=== PATIENT | male | born 1980 | race Caucasian/White ===

== ENCOUNTER 2018-12-05 14:22 | Outpatient (REF) | payer BC, SELFPAY ==
[2018-12-05 18:44] LABS: HCT 41.9 % (40.0-50.0); HGB 13.9 g/dL (13.5-17.5); Mean Corp. HGB Concentration 33.2 g/dL (32.0-36.0); Mean Corpuscular Hemoglobin 30.3 pg (27.0-33.0); Mean Corpuscular Volume 91.3 fL (80-95); Platelet Count 319 x1000/uL (130-400); RBC 4.59 m/cumm (4.50-6.00); RBC Distribution Width 12.7 % (11.8-14.1); White Blood Cell Count 6.52 k/cumm (4.4-10.8)
[2018-12-05 18:59] LABS: ALT 85 U/L (16-63); AST 40 U/L (15-37); Alkaline Phosphatase 81 U/L (46-116); Anion Gap 12.8 mmol/L (3-11); BUN 20 mg/dL (7-18); Bilirubin, Total 0.3 mg/dL (0.2-1.0); CO2 25.2 mmol/L (21.0-32.0); CREATININE 1.07 mg/dL (0.70-1.30); Calcium 9.2 mg/dL (8.5-10.1); Calculated LDL 152 mg/dL; Chloride 103 mmol/L (98-107); Cholesterol 245 mg/dL (50-200); Glucose 158 mg/dL (70-100); HDL Cholesterol 35 mg/dL (40-60); Sodium 141 mmol/L (136-145); TSH (W/Ref FT4) 1.62 uIU/mL (0.36-3.74); Total Protein 7.7 g/dL (6.4-8.2); Triglyceride 291 mg/dL (30-150)
[2018-12-07 10:28] LABS: Hepatitis B Surface Ag Negative (NEGAT)
[2018-12-07 10:40] LABS: HIV-1/2 Ag & Ab Screen Negative (NEGAT); Hepatitis C Ab w Rflx HCV PCR Negative (NEGAT)
[2018-12-07 11:14] LABS: Syphilis Serology (RPR) Negative (Negative)
[2018-12-07 11:32] LABS: HBs Antibody, Quant 16.1 mIU/mL; Hepatitis B Surface Ab Positive
[2018-12-07 14:48] LABS: Chlamydia Result Negative; GC Result Negative; Specimen Description URINE
== END 2018-12-05 14:42 ==
LOC: NCHCN 14:22
PROVIDERS: PCP General Practice; Visit Provider Nurse Practitioner Family
DX: R53.83 Other fatigue (principal); Z20.2 Contact with and (suspected) exposure to infections with a predominantly sexual mode of transmission; Z00.00 Encounter for general adult medical examination without abnormal findings; Z11.59 Encounter for screening for other viral diseases; Z11.4 Encounter for screening for human immunodeficiency virus [HIV]; Z11.3 Encounter for screening for infections with a predominantly sexual mode of transmission; Z13.220 Encounter for screening for lipoid disorders
CPT/HCPCS: 80053; 80061; 85027; 86706; 86803; 87340; 87389; 87491; 87591; 84443; 86592

== ENCOUNTER 2018-12-15 22:11 | Emergency (ER) | payer BC, SELFPAY ==
[2018-12-15 22:14] VITALS: BP 149/91; PULSE 110; RESP 16; TEMP 36.9; O2SAT 96
--- NOTE | 2018-12-15 22:17 | ED.GENADUL_ITS ---
Discharge Plan Disposition Patient Disposition: HOME Condition: Good Discharge Details Chief Complaint: EyeProblem Clinical Impression: Foreign body of left eye Primary Care Provider: Chad Sanders ED Provider: Earle Sevilla Home Meds and New Rx's Prescriptions: Continued ibuprofen 200 MG tablet 1 - 2 tab PO PRN PRNRF: 0 Discharge Instructions Additional Instructions: You could try some [id number] Visine for eye comfort tonight. There is no corneal abrasions or foreign body appreciated at this time. If you have increased eye pain, change in vision, eye discharge return to ED. Referrals: [facility] [Provider Group] Medical Decision Making 2 drops of tetracaine placed in left eye. No obvious foreign body visualized. Upper eyelid inverted and swept with Q-tip swab. Fluorescein staining placed in left eye. Wood's lamp reveals no corneal uptake. Will flush with a liter of LR using Dereje lens and evaluate with slit lamp. Patient reports that eye feels much better after irrigation. Slit-lamp exam reveals no foreign body that I can see, no corneal abnormality. Just a lot of conjunctival injection. Patient will be discharged at this time. May try ebnn-gqi-zffzdbw eyedrops for comfort overnight. Return to ED if increasing eye pain, vision change, eye discharge. HPI General Mode of arrival: ambulatory . Date/Time Provider Initiated Documentation: 12/15/18 22:17 . Limitations to Documentation: no limitations . Information obtained by: patient . HPI Narrative: Patient presents to ED with complaint of left eye pain/irritation. 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 Just as he was starting to climb out something fell into his left eye. He has tried irrigation but continues to feel like there is something there. It is very red and irritated and he needs to keep his eye closed. There is no visual disturbance. He presents now for evaluation. Related Data Home Medications Medication Instructions Recorded Confirmed ibuprofen 1 - 2 tab PO PRN PRN 05/14/13 12/15/18 Allergies Allergy/AdvReac Type Severity Reaction Status Date / Time codeine Allergy Unknown Unverified 12/15/18 22:17 bananas Allergy Intermediate Swelling/Ed Uncoded 12/15/18 22:17 filiberto General Stated Complaint: EyeProblem MUNA: 4 Review of Systems Constitutional Constitutional: Denies fever(s) Eyes Eyes: Denies change in vision, Reports irritation and Reports eye pain PFS Social History Smoking/Tobacco Use Status: Never Drug use: Occasionally Substance use type: marijuana Do you feel safe at home: Yes Do you feel safe in your relationship?: Yes Exam Const General: cooperative Orientation: alert and oriented x3 HENMT Head: normocephalic and atraumatic Face and sinus: normal facial exam Eyes Periorbital: periorbital findings normal Eyelids: eyelids normal Conjunctivae: conjunctival abnormality bilaterally conjunctival injection (left greater than right) diffuse Sclera: sclerae normal Cornea: corneas normal and fluorescein used Pupils: PERRL EOM: EOM intact bilaterally Other: 20/20 left eye Course Vital Signs Vital signs: Vital Signs Temperature 98.4 F 12/15/18 22:14 Pulse 110 H 12/15/18 22:14 Respiratory Rate 16 12/15/18 22:14 Blood Pressure 149/91 H 12/15/18 22:14 Pulse Oximetry 96 12/15/18 22:14 Temperature 98.4 F 12/15/18 22:14 Temperature Source Skin 12/15/18 22:14 Pulse 110 H 12/15/18 22:14 Respiratory Rate 16 12/15/18 22:14 Respiratory Effort Non-Labored 12/15/18 22:16 Blood Pressure 149/91 H 12/15/18 22:14 Blood Pressure Position Sitting 12/15/18 22:14 Pulse Oximetry 96 12/15/18 22:14 Oxygen Delivery Method Room Air 12/15/18 22:14 Oxygen Flow Rate 0 12/15/18 22:14
[2018-12-15 23:01] VITALS: BP 149/91; PULSE 110; RESP 16; TEMP 36.9; O2SAT 96
== END 2018-12-15 23:00 | disposition home or self-care (01) ==
PROVIDERS: Emergency Provider Emergency Medicine; PCP Nurse Practitioner Family
DX: T15.92XA Foreign body on external eye, part unspecified, left eye, initial encounter (principal)
CPT/HCPCS: 99283

== ENCOUNTER 2019-03-21 00:08 | Outpatient (CLI) | payer BC, SELFPAY ==
--- NOTE | 2019-03-21 08:14 | ETT_ITS ---
APPROVED REPORT Exam: Exercise Treadmill Patient Location: Out-Patient Room/Bed: Stress Nurse: Sinai Dolan RN BMI: 46.98 Baseline Rhythm: Sinus Indications: Exertional chest pain. Medical History Medical History: Sleep Apnea Allergies: Codeine Cardiac Risk Factors: Smoking, cannabis. Obesity. Sleep apnea. Pretest Chest Pain Characteristics: Exertional Chest pain Exercise History: Indeterminate Lung Sounds: Clear to auscultation Heart Sounds: Regular Stress Test Details Rest Stress HR Max Heart Rate (APMHR): 184 bpm Resting HR Supine: 77 bpm Target HR (85% APMHR): 156 bpm Resting HR Standin bpm Max HR Achieved: 179 bpm % of APMHR: 97 HR response to stress: Normal HR response to stress BP Resting BP Supine: 142/102 mmHg Resting BP Standin/100 mmHg Max BP: 216/100 mmHg Recovery BP: 160/100 mmHg BP response to stress: Abnormal hypertensive response to stress. ECG Resting ECG: Sinus rhythm Stress ECG: Sinus Tachycardia ST Change: No significant ST segment changes Arrhythmia: none Recovery ECG: Sinus tachycardia Recovery Arrhythmia: none Clinical Time of Stop for Rene: 0800 Reason for Termination: Fatigue Stress Symptoms: General Fatigue Exercise duration: 08 min0 sec Highest Stage Achieved: Stage 3: 3.4 mph at 14% grade. Exercise capacity: 10.15 METs Functional Capacity: Mildly diminished capacity Stress ECG Conclusion 1. The patient exercised for 8 minutes (10 METS). 2. Exercise was terminated due to fatigue. 3. The heart rate blood pressure product was 32,000. 4. The patient had a hypertensive response to exercise. 5. There was no evidence of ischemia on the ECG portion of this exam. 6. The Dial Score ( 8) estimates an annual cardiovascular mortality of 0% and a five year survival of 95%. Using the Dial Score there is a low probability of any angiographic coronary disease. Protocol Used: Rene Protocol Stress Test Summary STAGE Time (mins) Speed (mph) Grade (%) HR BP SYMPTOMS METS Supine 77 142/102 Standing 87 140/104 1 3 1.7 10 138 168/110 4.6 2 6 2.5 12 162 180/110 7 3 9 3.4 14 171 10.2 12.9 17.2 1 min recovery 156 216/100 3 min recovery 120 208/100 9 min recovery 113 180/100 15 min recovery 115 160/100
== END 2019-03-21 00:28 ==
PROVIDERS: PCP Nurse Practitioner Family; Visit Provider Nurse Practitioner Family
DX: R07.89 Other chest pain (principal); F17.220 Nicotine dependence, chewing tobacco, uncomplicated; G47.30 Sleep apnea, unspecified; R53.83 Other fatigue; E66.9 Obesity, unspecified
CPT/HCPCS: 93017

== ENCOUNTER 2019-10-27 14:54 | Outpatient (REF) | payer BC, SELFPAY ==
[2019-10-29 19:02] LABS: SARS-CoV-2 RNA Undetected (Undetected); SARS-CoV-2 Specimen Source Nasopharynx
== END 2019-10-27 15:14 ==
LOC: NCHCN 14:54
PROVIDERS: PCP Nurse Practitioner Family; Visit Provider Nurse Practitioner Family
DX: R09.81 Nasal congestion (principal)
CPT/HCPCS: U0003

== ENCOUNTER 2020-02-01 15:23 | Outpatient (REF) | payer BC, SELFPAY ==
[2020-02-06 15:09] LABS: Patient Race White; SARS-CoV-2 Specimen Source Nasal
[2020-02-06 15:44] LABS: SARS-CoV-2 RNA Detected (Undetected)
== END 2020-02-01 15:43 ==
LOC: NCHCN 15:23
PROVIDERS: PCP Nurse Practitioner Family; Visit Provider Nurse Practitioner Family
DX: Z20.828 Contact with and (suspected) exposure to other viral communicable diseases (principal)
CPT/HCPCS: U0003

== ENCOUNTER 2020-05-26 08:02 | Emergency (ER) | payer BC, SELFPAY ==
[2020-05-26 08:12] VITALS: BP 133/86; PULSE 93; RESP 22; TEMP 36.3; O2SAT 97
--- NOTE | 2020-05-26 08:15 | RT.EKG_ITS ---
APPROVED REPORT Exam: Resting ECG Patient Location: E HR:76 bpm ECG Measurements Heart Rate 76 AXIS IA 175 P 25 QRSd 89 QRS 67 QT 356 T 43 QTc 401 Conclusion Sinus rhythm...normal P axis, V-rate 60- 99 Nonspecific T abnrm, anterolateral leads...T <-0.10mV, I aVL V2-V6
--- NOTE | 2020-05-26 08:45 | DI.RAD_ITS ---
EXAM: XR PORTABLE CHEST AP CLINICAL HISTORY: sob TECHNIQUE: 2D digital imaging was performed. COMPARISON: No exams were available for comparison FINDINGS: MEDIASTINUM: Normal. HEART: Normal. PULMONARY VASCULATURE: Normal. LUNGS: Clear. PLEURAL SPACE: No pleural effusion or pneumothorax. BONE:Within normal limits for the patient's age. OTHER FINDINGS:Normal. IMPRESSION: No acute pulmonary findings. DATA REPOSITORY: RADIATION DOSE DELIVERED:
--- NOTE | 2020-05-26 09:18 | ED.GENADUL_ITS ---
Discharge Plan Disposition Patient Disposition: HOME Condition: Stable Discharge Details Clinical Impression: Pulmonary embolism Primary Care Provider: Joaquín Herring ED Provider: Dilan Raza Home Meds and New Rx's Prescriptions: New Xarelto DVT-PE Treat 30d Start 15 mg (42)- 20 mg (9) tablets,dose pack See Rx Instructions .ROUTE .COMPLEX Qty: 51 RF: 0 Continued armodafinil 150 mg tablet 150 mg PO DAILY RF: 0 Discontinued ibuprofen 200 MG tablet 1 - 2 tab PO PRN PRNRF: 0 Discharge Instructions Instructions: Pulmonary Embolism (ED) Additional Instructions: Evaluation in the ER reveals a pulmonary embolism. After shared decision making we decided to initiate Xarelto therapy. You declined the 1st dose here in the ER but have assured me you will go directly to the pharmacy. Please take Xarelto as directed. Please watch for new or worsening symptoms and return to the ER for any concerns. As we discussed, Xarelto will increase your chance for bleeding so evaluation for mild trauma that you may have not previously obtained is now likely indicated. Please contact your primary care provider tomorrow, I have placed you on their list to help expedite outpatient care in the next few days. Medical Decision Making This is a 39-year-old gentleman, denies significant past medical history presenting to the ER today with 1 week history of what he describes as a dry cough and shortness of breath progressively worse. Clinically he appears well, nontoxic. He is able to speak in full sentences, heart rate in the 90s, he is afebrile, O2 sats 97% on room air. He does have a few scattered wheezes pr imarily clear with coughing. He is morbidly obese, questions if he has a clotting factor disorder in his family but cannot give additional details. We discussed options, will obtain IV access, CBC, CMP, a simple troponin and EKG. Will obtain a chest x-ray and D-dimer. We will also obtain Covid swab. Differential includes but not excluded to atypical ACS, pneumonia, PE, bronchitis, anxiety, low suspicion for CHF given his presentation. We will give a single DuoNeb to see if there is any improvement of his symptoms. DuoNeb given, no real change upon reevaluation Laboratory values reveal a D-dimer of 903, otherwise unremarkable for obvious emergent process. Covid test pending. Chest x-ray has already been obtained, negative per radiology. Given his shortness of breath and elevated D-dimer will obtain CTA of his chest. CTA read by radiology as right anterior truncus PE without convincing evidence of right heart strain. Patient remains hemodynamically stable. Using the pulmonary embolism severity index, patient is a class I very low risk 0-1.6% 30-day mortality. I did discuss the CT findings and work-up with patient. We discussed inpatient versus outpatient management, he is comfortable with outpatient management and given his age, lack of other, disease, I feel this to be perfectly reasonable. Using shared decision making, discussing pros and cons of anticoagulation therapy, patient would like to move forward with Xarelto. He declines my recommended 1st dose here in the ER, citing financial issues, and would prefer to take this dose as soon as he leaves the ER and fill his prescription at the pharmacy. Patient was placed on the care management list to help expedite outpatient care through his primary care provider. Patient plans to contact his primary care provider tomorrow to discuss outpatient evaluation. Patient was given strict return precautions and encouraged to return to the ER for new, worsening, or evolving symptoms. Upon discharge patient appears well, nontoxic and is hemodynamically stable. He has no additional questions or concerns and is comfortable with this plan. Medical Records Medical records reviewed: Yes I reviewed the patient's medical records. Imaging Data Radiologic Study: Attestation: I personally reviewed and interpreted this imaging study as follows: Imaging: X-Ray Radiologist's impression: CTA chest small burden pulmonary embolism right anterior truncus without convincing evidence of right heart strain at this time. Lab Data Lab results reviewed: Yes I reviewed the patient's lab results. Lab results narrative: Laboratory Tests Range/Units 05/26/20 05/26/20 05/26/20 09:15 09:15 09:15 WBC (4.4-10.8) 10^3/uL 8.54 RBC (4.36-5.78) 10^6/uL 4.54 Hgb (13.5-17.5) g/dL 13.9 Hct (40.0-50.0) % 41.5 MCV (80-95) fL 91.4 MCH (27.0-33.0) pg 30.6 MCHC (32.0-36.0) % 33.5 RDW (11.8-14.1) % 12.5 Plt Count (130-400) 10^3/uL 286 MPV (8.0-11.0) fL 9.2 Immature Gran % 0.2 Neutrophils % 53.2 Lymphocytes % 25.2 Monocytes % 7.6 Eosinophils % 11.7 Basophils % 2.1 Nucleated RBC % % 0 Absolute Neutrophils (1.2-6.7) 10^3/uL 4.54 Absolute Lymphocytes (1.2-3.4) 10^3/uL 2.15 Absolute Monocytes (0.1-0.8) 10^3/uL 0.65 Absolute Eosinophils (0.0-0.7) 10^3/uL 1.00 H Absolute Basophils (0.0-0.2) 10^3/uL 0.18 D-Dimer (<500) ng/mlFEU 903 H Sodium (136-145) mmol/L 139 Potassium (3.5-5.1) mmol/L 4.3 Chloride (98-107) mmol/L 104 Carbon Dioxide (21.0-32.0) mmol/L 27.0 Anion Gap (3-11) mmol/L 8.0 BUN (7-18) mg/dL 13 Creatinine (0.70-1.30) mg/dL 1.0 Estimated GFR/1.73 m2 (mL/min/1.73m2) >= 60.00 Glucose (74-106) mg/dL 123 H Calcium (8.5-10.1) mg/dL 9.1 Total Bilirubin (0.2-1.0) mg/dL 0.3 AST (15-37) U/L 16 ALT (16-63) U/L 52 Alkaline Phosphatase (46-116) U/L 91 Troponin I (<0.06) ng/mL < 0.05 Total Protein (6.4-8.2) g/dL 7.8 Albumin (3.4-5.0) g/dL 3.7 ECG Data Attestation: I personally reviewed and interpreted this ECG (s) as follows: Interpretation: Please see official report by Dr. Jean. Sinus rhythm, ventricular of 76. Nonspecific T wave abnormalities in the anterior lateral leads, no STEMI HPI General Mode of arrival: ambulatory . Date/Time Provider Initiated Documentation: 05/26/20 08:21 . Limitations to Documentation: no limitations . Information obtained by: patient . HPI Narrative: This is a 39-year-old male, past medical history that includes sleep apnea, current daily marijuana smoker, presented to the ER today with 1 week history of shortness of breath. He denies recent illness or travel. He reports having flulike symptoms and Covid positive back in January, this feels differently. He was never short of breath with Covid. 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 He feels like this makes his symptoms worse. He denies any headache, fevers, neck pain, chest pain, back pain,, pain, nausea, vomiting, numbness, tingling, weakness, pain or swelling in his legs. He is not sure but believes that a clotting disorder runs in his family. He denies history of DVT or PE. Patient reports that he has felt wheezy, using a friend's albuterol rescue inhaler more than directed. He reports his cough is mostly dry. He has not tried any other [id number] medications for symptomatic control. Related Data Home Medications Medication Instructions Recorded Confirmed armodafinil 150 mg PO DAILY 05/26/20 05/26/20 rivaroxaban [Xarelto DVT-PE Treat See Rx Instructions .ROUTE 05/26/20 30d Start] .COMPLEX #51 dose pk Previous Rx's Medication Instructions Recorded rivaroxaban [Xarelto DVT-PE Treat See Rx Instructions .ROUTE 05/26/20 30d Start] .COMPLEX #51 dose pk Allergies Allergy/AdvReac Type Severity Reaction Status Date / Time codeine Allergy Unknown Unverified 05/26/20 08:16 bananas Allergy Intermediate Swelling/Ed Uncoded 05/26/20 08:16 filiberto General Stated Complaint: SOB MUNA: 3 Review of Systems Constitutional Constitutional: Denies fatigue, Denies fever(s) and Denies headache(s) Eyes Eyes: Denies eye discharge ENT Ears, Nose, Mouth, and Throat: Denies headache(s) and Denies neck pain Cardiovascular Cardiovascular: Denies chest pain and Reports dyspnea Respiratory Respiratory: Reports cough, Reports dyspnea and Reports wheezing Gastrointestinal Gastrointestinal: Denies abdominal pain, Denies nausea and Denies vomiting Musculoskeletal Musculoskeletal: Denies back pain and Denies neck pain Integumentary/Breasts Skin/Breast: Denies rash Neurologic Neurologic: Denies headache(s) Endocrine Endocrine: Denies fatigue Allergic/Immunologic Allergic/Immunologic: Reports wheezing [facility] Social History Smoking/Tobacco Use Status: Never Smoking risk assessment performed?: Yes Drug use: Daily Substance use type: marijuana Do you feel safe at home: Yes Do you feel safe in your relationship?: Yes Exam Const General: cooperative, healthy appearing, comfortable and no acute distress Orientation: alert, awake and oriented x3 HENMT Head: normal to inspection, normocephalic and atraumatic Face and sinus: normal facial exam Mouth: moist mucous membranes Throat: posterior oropharynx normal Eyes General: appearance normal, both eyes and all related structures Conjunctivae: conjunctivae normal Sclera: sclerae normal Neck Neck: normal visual inspection, full ROM, trachea midline and supple Resp Effort & Inspection: normal respiratory effort and able to speak in complete sentences Auscultation: diminished lung sounds bilaterally (Minimally) and wheezes (Scattered, rare, diffuse. Mostly clear with coughing) Cardio Rate: regular rate Rhythm: regular rhythm GI Inspection: obesity Palpation: soft and nontender Back/Spine/Pelvis Back: No back tenderness Skin General skin exam: no rashes or lesions noted Neuro General: patient alert, patient awake, moves all extremities and no focal motor deficits Cognition: normal cognition Speech: speech normal Gait: normal gait Motor: muscle tone normal throughout Sensory Exam: no sensory deficits noted Extrem General: normal to inspection, full ROM, capillary refill normal, no pedal edema and no calf tenderness Psych Appearance: grossly normal Mental Status: mental status grossly normal Course Vital Signs Vital signs: Vital Signs Temperature 36.3 C L 05/26/20 08:12 Pulse 93 H 05/26/20 08:12 Respiratory Rate 22 05/26/20 08:12 Blood Pressure 133/86 05/26/20 08:12 Pulse Oximetry 97 05/26/20 08:12 Temperature 36.3 C L 05/26/20 08:12 Temperature Source Skin 05/26/20 08:12 Pulse 93 H 05/26/20 08:12 Respiratory Rate 22 05/26/20 08:12 Respiratory Effort 05/26/20 08:57 Respiratory Depth Normal 05/26/20 08:57 Respiratory Pattern Normal 05/26/20 08:57 Blood Pressure 133/86 05/26/20 08:12 Blood Pressure Position Sitting 05/26/20 08:12 Pulse Oximetry 97 05/26/20 08:12 Oxygen Delivery Method Room Air 05/26/20 08:12 Oxygen Flow Rate 0 05/26/20 08:12 Pain Level 2 05/26/20 08:12 Critical Care Time Critical Care Time Critical Care Time: Yes Total Critical Care Time: 35 Attestation: Upon my evaluation, this patient had a high probability of clinically significant, life-threatening deterioration due to their current medical conditions, which required my direct attention, intervention, and personal management. I have personally provided greater than 30 minutes of critical care time exclusive of the time spend on separately billable procedures. Time includes obtaining a history, examining the patient, pulse oximetry, review of laboratory data, radiology results, discussion with consulta nts, arranging urgent treatment with development of a management plan, evaluation of patient's response to treatment, and monitoring for potential decompensation. Interventions were performed as documented above.
[2020-05-26 09:23] LABS: Abs Immature Grans 0.02 10^3/uL (0.0-0.06); Absolute Basophil Count 0.18 10^3/uL (0.0-0.2); Absolute Lymphocyte Count 2.15 10^3/uL (1.2-3.4); Absolute Monocyte Count 0.65 10^3/uL (0.1-0.8); Absolute Neutrophil Count 4.54 10^3/uL (1.2-6.7); Basophils % 2.1; Eosinophils % 11.7; HCT 41.5 % (40.0-50.0); HGB 13.9 g/dL (13.5-17.5); Immature Grans % 0.2; Lymphocytes % 25.2; MCH 30.6 pg (27.0-33.0); MCHC 33.5 % (32.0-36.0); MCV 91.4 fL (80-95); MPV 9.2 fL (8.0-11.0); Monocytes % 7.6; Neutrophils % 53.2; Nucleated RBC 0 %; Platelet Count 286 10^3/uL (130-400); RBC 4.54 10^6/uL (4.36-5.78); RDW 12.5 % (11.8-14.1); RDW-SD 41.7 fL; WBC 8.54 10^3/uL (4.4-10.8)
[2020-05-26 09:38] LABS: ALT 52 U/L (16-63); AST 16 U/L (15-37); Albumin 3.7 g/dL (3.4-5.0); Alkaline Phosphatase 91 U/L (46-116); BUN 13 mg/dL (7-18); Bilirubin, Total 0.3 mg/dL (0.2-1.0); Calcium 9.1 mg/dL (8.5-10.1); Chloride 104 mmol/L (98-107); Glucose 123 mg/dL (74-106); Potassium 4.3 mmol/L (3.5-5.1); Sodium 139 mmol/L (136-145); Total Protein 7.8 g/dL (6.4-8.2)
[2020-05-26 09:39] LABS: Troponin I < 0.05 ng/mL (<0.06)
[2020-05-26 09:55] LABS: D-Dimer 903 ng/mlFEU (<500)
--- NOTE | 2020-05-26 10:00 | DI.CT_ITS ---
EXAM: CT CHEST PE CTA CLINICAL HISTORY: sob, elevated dimer. TECHNIQUE: Imaging Protocol: Axial CT angiography was performed with multi-slice acquisition and mu lti-planar and/or 3D reconstructions. CONTRAST MATERIAL: Intravenous: Omnipaque 350 Contrast volume:100 mL COMPARISON: CR,XR XR PORTABLE CHEST AP from 05/26/2020 FINDINGS: Tracheobronchial tree: Patent where visualized. Pulmonary parenchyma: No consolidation or dominant measurable mass. No architectural distortion. Pulmonary Arteries: There are emboli seen in pulmonary artery branches of the right upper lobe. No s addle embolus is present. Mediastinum and Luda: No dominant adenopathy or fluid collection. Visualized thyroid gland: Unremarkable. Pleura: No effusion or pneumothorax. Heart: The heart is not dilated. No coronary artery calcifications are seen. No pericardial effusion. No evidence of right heart strain. Aorta: Thoracic aorta non-dilated. No evidence of dissection. Upper abdomen: Unremarkable. Soft tissues: Unremarkable. Bones: Normal. IMPRESSION: 1. Small burden pulmonary emboli to the right upper lobe. No evidence of right heart strain. 2. No evidence of thoracic aortic dissection or aneurysm. RADIATION DOSE DELIVERED: 703.66mGy.cm Total DLP DATA REPOSITORY: All CT scans at this facility are submitted to the National Radiology Data Registry (NRDR) Dose Index Registry (DIR) with the [employer] (A[employer]). RADIATION OPTIMIZATION: All CT scans at this facility use at least one of these dose optimization te chniques: automated exposure control; mA and/or kV adjustment per patient size (includes targeted exa ms where dose is matched to clinical indication); or iterative reconstruction.
--- NOTE | 2020-05-26 10:19 | DI.VRAD_ITS ---
PROCEDURE INFORMATION: Exam: XR Chest Exam date and time: 05/26/2020 10:00 AM Age: 39 years old Clinical indication: Shortness of breath; Patient HX: SOB elevated ddimer TECHNIQUE: Imaging protocol: XR of the chest Views: 1 view. COMPARISON: CR CHEST 2 VIEWS PA,LAT 03/09/2014 8:16 AM FINDINGS: Lungs: No convincing consolidation. Pleural spaces: no pneumothorax. no sizable pleural effusion. Heart/Mediastinum: cardiomediastinal silhouette within normal limits. Bones/joints: no acute displaced fracture. IMPRESSION: No acute cardiopulmonary process. Dictated and Authenticated by: Elpidio Lawrence MD. Ordering:ANGEL Kong MD
[2020-05-26] MEDS: Normal Saline - Diluent 50 ML VIAL IV (10:27)
[2020-05-26] MEDS: Omnipaque 350 MG/ML 50 ML BTL 100 ML IJ (10:27)
[2020-05-26] MEDS: Normal Saline Flush 10 ML SYR IVP (10:29)
[2020-05-26 10:34] VITALS: BP 121/79; PULSE 78; RESP 15; O2SAT 94
[2020-05-26 10:35] VITALS: RESP 4
[2020-05-26] MEDS: Albuterol/Ipratropium 3 ML UPD VIAL UPD (10:35)
--- NOTE | 2020-05-26 10:48 | NUR.NOTE ---
Updraft completed, exp wheezes all lobes. no shortness of breath, sitting quietly on stretcher, resp even and unlabored. denies pain. infrequent non-productive cough
--- NOTE | 2020-05-26 10:56 | DI.VRAD_ITS ---
Addendum created by Elpidio Lawrence DO on 05/26/2020 11:04:32 AM EST: Findings of pulmonary embolus discussed with Dr. Raza by Dr. Lawrence at approximately 10:02 a.m. on 05/26/2020 by phone. Central standard time. Initial report created on 05/26/2020 10:56:16 AM EST: PROCEDURE INFORMATION: Exam: CT Angiography Chest With Contrast Exam date and time: 05/26/2020 10:01 AM Age: 39 years old Clinical indication: Chest pain; Patient HX: SOB, elevated d-dimer TECHNIQUE: Imaging protocol: Computed tomographic angiography of the chest with contrast. 3D rendering (Not supervised by radiologist): MIP and/or 3D reconstructed images were created by the technologist. Contrast material: OMNIPAQUE 350; Contrast volume: 100 ml; Contrast route: INTRAVENOUS (IV); COMPARISON: CR XR PORTABLE CHEST AP 05/26/2020 9:39 AM FINDINGS: Pulmonary arteries: Main pulmonary artery mildly prominent measuring up to 3.2 cm. This may be related to phase of respiration and or motion however. There is small burden pulmonary embolus in the right anterior truncus extending into distal branches. Image 22 series 4 and image 74 series 10. Aorta: Normal caliber aorta. Thyroid: Unremarkable visualized thyroid. Lungs: Clear central airways. Limited evaluation lung parenchyma secondary to motion. Mild likely atelectatic changes present. Pleural spaces: no pneumothorax. no sizable pleural effusion. Heart: Heart normal size. Lymph nodes: Scattered prominent nodes are nonspecific and may be reactive. Liver: Hepatic steatosis. Bones/joints: Bony degenerative changes. No acute fracture or dislocation. Soft tissues: Unremarkable superficial soft tissues. Mild gynecomastia. IMPRESSION: 1. Small burden pulmonary embolus right anterior truncus without convincing evidence of right heart strain at this time. 2. Hepatic steatosis. Correlate with LFTs. Dictated and Authenticated by: Elpidio Lawrence MD. Ordering:ANGEL Kong MD
--- NOTE | 2020-05-26 11:34 | NUR.NOTE ---
Nursing Note: Referral faxed to PCP for follow up for pulmonary embolus, GIULIANA no later than WedMay 29. Heather Caal
[2020-05-26 11:50] VITALS: BP 121/79; PULSE 78; RESP 15; TEMP 36.3; O2SAT 94
--- NOTE | 2020-05-26 17:36 | NUR.NOTE ---
Nursing Note: Patient's called with patient there stating that he woke up from sleep and felt like he could not breathe. I spoke with Dr. Gilmore and he stated pt needs to return if he feels that he is getting worse, and that it was hard for us to determine whether or not he was getting worse over the phone. He needs to return if he is worse. I reviewed this with the patient's . Heather Caal
[2020-05-27 12:52] LABS: COVID-19 RT-PCR UVMMC Result Negative (Negative)
== END 2020-05-26 11:53 | disposition home or self-care (01) ==
PROVIDERS: Emergency Provider Physician Assistant; PCP Nurse Practitioner Family
DX: I26.99 Other pulmonary embolism without acute cor pulmonale (principal); Z20.822 Contact with and (suspected) exposure to COVID-19
CPT/HCPCS: 71275; 80053; 93005; 94640; 99291; U0003; 71045; 84484; 85025; 85379; 93010; J7620; Q9967

== ENCOUNTER 2020-05-28 16:34 | Outpatient (REF) | payer BC, SELFPAY ==
[2020-06-04 14:12] LABS: FACV Specimen Whole Blood
== END 2020-05-28 16:35 | disposition home or self-care (01) ==
LOC: NCHCN 16:34
PROVIDERS: PCP Nurse Practitioner Family; Visit Provider Nurse Practitioner
DX: I26.99 Other pulmonary embolism without acute cor pulmonale (principal)
CPT/HCPCS: 81241

== ENCOUNTER 2020-08-21 03:18 | Outpatient (CLI) | payer BC, SELFPAY ==
[2020-08-21 17:03] LABS: Hemoglobin A1C 6.1 % (<5.7)
[2020-08-21 17:22] LABS: HCT 38.8 % (40.0-50.0); HGB 13.1 g/dL (13.5-17.5); MCH 30.4 pg (27.0-33.0); MCHC 33.8 % (32.0-36.0); MPV 9.4 fL (8.0-11.0); Platelet Count 290 10^3/uL (130-400); RBC 4.31 10^6/uL (4.36-5.78); RDW 12.4 % (11.8-14.1); RDW-SD 40.8 fL; WBC 7.32 10^3/uL (4.4-10.8)
[2020-08-21 18:45] LABS: ALT 66 U/L (16-63); AST 24 U/L (15-37); Albumin 3.9 g/dL (3.4-5.0); Alkaline Phosphatase 82 U/L (46-116); Anion Gap 11.3 mmol/L (3-11); BUN 16 mg/dL (7-18); Bilirubin, Total 0.2 mg/dL (0.2-1.0); CO2 23.7 mmol/L (21.0-32.0); CREATININE 1.2 mg/dL (0.70-1.30); Calcium 8.8 mg/dL (8.5-10.1); Calculated LDL 154 mg/dL (<100); Chloride 107 mmol/L (98-107); Cholesterol 243 mg/dL (<200); Glucose 107 mg/dL (74-106); HDL Cholesterol 32 mg/dL (40-60); Potassium 4.1 mmol/L (3.5-5.1); Sodium 142 mmol/L (136-145); Total Protein 7.2 g/dL (6.4-8.2); Triglyceride 289 mg/dL (<150)
== END 2020-08-21 03:19 | disposition home or self-care (01) ==
LOC: LBO 03:18
PROVIDERS: PCP Nurse Practitioner Family; Visit Provider Physician Assistant
DX: R73.9 Hyperglycemia, unspecified (principal); I26.99 Other pulmonary embolism without acute cor pulmonale; E78.5 Hyperlipidemia, unspecified
CPT/HCPCS: 36415; 80053; 80061; 85027; 83036

== ENCOUNTER 2021-02-28 08:45 | Outpatient (REF) | payer OTHER, SELFPAY ==
[2021-02-28 14:15] LABS: HCT 41.7 % (40.0-50.0); HGB 13.6 g/dL (13.5-17.5); MCH 29.6 pg (27.0-33.0); MCHC 32.6 % (32.0-36.0); MCV 90.8 fL (80-95); MPV 9.8 fL (8.0-11.0); Platelet Count 275 10^3/uL (130-400); RBC 4.59 10^6/uL (4.36-5.78); RDW-SD 40.1 fL; WBC 6.65 10^3/uL (4.4-10.8)
[2021-02-28 15:25] LABS: ALT 64 U/L (16-63); AST 21 U/L (15-37); Albumin 3.9 g/dL (3.4-5.0); Alkaline Phosphatase 81 U/L (46-116); BUN 17 mg/dL (7-18); Bilirubin, Total 0.3 mg/dL (0.2-1.0); Calcium 9.1 mg/dL (8.5-10.1); Calculated LDL 112 mg/dL (<100); Chloride 106 mmol/L (98-107); Cholesterol 165 mg/dL (<200); Glucose 113 mg/dL (74-106); HDL Cholesterol 39 mg/dL (40-60); Potassium 4.3 mmol/L (3.5-5.1); Sodium 142 mmol/L (136-145); Total Protein 7.1 g/dL (6.4-8.2); Triglyceride 74 mg/dL (<150)
[2021-02-28 16:04] LABS: Hemoglobin A1C 6.1 % (<5.7)
== END 2021-02-28 08:46 | disposition home or self-care (01) ==
LOC: NCHCN 08:45
PROVIDERS: PCP Nurse Practitioner Family; Visit Provider Physician Assistant
DX: R73.9 Hyperglycemia, unspecified (principal); E78.5 Hyperlipidemia, unspecified; D68.51 Activated protein C resistance
CPT/HCPCS: 80053; 80061; 85027; 83036

== ENCOUNTER 2021-08-21 11:08 | Emergency (ER) | payer OTHER, SELFPAY ==
--- NOTE | 2021-08-21 11:00 | RT.EKG_ITS ---
APPROVED REPORT Exam: Resting ECG Reason for Exam: CHEST PAIN Patient Location: E HR:69 bpm ECG Measurements Heart Rate 69 AXIS VT 162 P 17 QRSd 95 QRS 55 QT 400 T 35 QTc 429 Conclusion Sinus rhythm...normal P axis, V-rate 60- 99
[2021-08-21 11:19] VITALS: BP 126/72; PULSE 56; RESP 18; TEMP 36.5; O2SAT 99
--- NOTE | 2021-08-21 11:24 | ED.GENADUL_ITS ---
Discharge Plan Disposition Patient Disposition: HOME Condition: Stable Discharge Details Clinical Impression: Electrocution Primary Care Provider: Joaquín Herring ED Provider: Gisell Lazo Home Meds and New Rx's Prescriptions: Continued armodafinil 150 mg tablet 250 mg PO DAILY Label Comments: TAKE ONE TABLET BY MOUTH EVERY MORNING Xarelto DVT-PE Treat 30d Start 15 mg (42)- 20 mg (9) tablets,dose pack See Rx Instructions .ROUTE .COMPLEX Qty: 51 0RF Rx Instructions: must administer with evening meal atorvastatin 20 mg tablet 20 mg PO DAILY albuterol sulfate 90 mcg/actuation HFA aerosol inhaler 90 mcg INHALATION PRN PRN Xarelto 10 mg tablet 10 mg PO DAILY Label Comments: Take 1 tablet by mouth once a day Discharge Instructions Instructions: [facility] in Adults (ED) Additional Instructions: Current at this time there is no evidence for any cardiac abnormality on your work-up. There is no evidence for any kidney injury. You will be sore for a week or 2. Please take Tylenol or Ibuprofen with food every 4-6 hours as needed for pain and swelling. X-rays are negative for any broken bones or abnormality on your wrist. Please drink lots and lots of fluids. Return for any dark urine, palpitations or any concerns. Follow up with primary care provider in 3-5 days. Return to ED sooner if any worsening or concerns. Increase oral fluids. Stand Alone Forms: Work Release Referrals: Joaquín Herring, CHILD DEVELOPMENT ASSISTANT [Primary Care Provider] - 2 weeks Discharge Data Discharge Date/Time-TO BE ENTERED AT DEPARTURE: 08/21/21 12:53 Medical Decision Making Cardiac work-up ordered including CK PT PTT EKG. right wrist x-ray EKG was reviewed by Dr. Arora ER attending, please see his official report CBC shows no leukocytosis largely within normal limits, PT/INR PTT also within normal limits, CMP largely within normal limits, ALT slightly elevated at 66, troponin less than 50 CK within normal limits at 155. At this time there is no evidence for rhabdo no evidence for acute cardiac injury. I did discuss strict return instructions and red flags with patient including palpitations and/or shortness of breath cough or any other concerns. I did discuss home care including taking Tylenol ibuprofen ice and patient was given a work note. This text was generated using [employer] system, please disregard any oddities of phrase or misspellings. Medical Records Medical records reviewed: Yes I reviewed the patient's medical records. Lab Data Lab results reviewed: Yes I reviewed the patient's lab results. Labs: Laboratory Tests Range/Units 08/21/21 08/21/21 08/21/21 11:41 11:41 11:41 WBC (4.4-10.8) 10^3/uL 6.72 RBC (4.36-5.78) 10^6/uL 4.45 Hgb (13.5-17.5) g/dL 13.6 Hct (40.0-50.0) % 40.3 MCV (80-95) fL 91 MCH (27.0-33.0) pg 30.6 MCHC (32.0-36.0) % 33.7 RDW (11.8-14.1) % 12.2 Plt Count (130-400) 10^3/uL 271 MPV (8.0-11.0) fL 9.2 Immature Gran % 0.3 Neutrophils % 50.9 Lymphocytes % 36.5 Monocytes % 8.5 Eosinophils % 2.8 Basophils % 1.0 Nucleated RBC % (0.0-0.3) % 0.0 Absolute Neutrophils (1.2-6.7) 10^3/uL 3.42 Absolute Lymphocytes (1.2-3.4) 10^3/uL 2.45 Absolute Monocytes (0.1-0.8) 10^3/uL 0.57 Absolute Eosinophils (0.0-0.7) 10^3/uL 0.19 Absolute Basophils (0.0-0.2) 10^3/uL 0.07 PT (9.3-11.0) sec 9.9 INR (0.9-1.1) 1.0 APTT (21.0-27.5) sec 24.3 Sodium (136-145) mmol/L 138 Potassium (3.5-5.1) mmol/L 4.0 Chloride (98-107) mmol/L 104 Carbon Dioxide (21.0-32.0) mmol/L 25.9 Anion Gap (3-11) mmol/L 8.1 BUN (7-18) mg/dL 13 Creatinine (0.70-1.30) mg/dL 0.9 Estimated GFR/1.73 m2 (mL/min/1.73m2) >= 60.00 Glucose (74-106) mg/dL 93 Calcium (8.5-10.1) mg/dL 8.8 Magnesium (1.8-2.4) mg/dL 2.1 Total Bilirubin (0.2-1.0) mg/dL 0.3 AST (15-37) U/L 23 ALT (16-63) U/L 66 H Alkaline Phosphatase (46-116) U/L 82 Creatine Kinase (39-308) U/L 155 Troponin I (<or=60) ng/L < 50 Total Protein (6.4-8.2) g/dL 7.3 Albumin (3.4-5.0) g/dL 3.7 Range/Units 08/21/21 14:17 WBC (4.4-10.8) 10^3/uL RBC (4.36-5.78) 10^6/uL Hgb (13.5-17.5) g/dL Hct (40.0-50.0) % MCV (80-95) fL MCH (27.0-33.0) pg MCHC (32.0-36.0) % RDW (11.8-14.1) % Plt Count (130-400) 10^3/uL MPV (8.0-11.0) fL Immature Gran % Neutrophils % Lymphocytes % Monocytes % Eosinophils % Basophils % Nucleated RBC % (0.0-0.3) % Absolute Neutrophils (1.2-6.7) 10^3/uL Absolute Lymphocytes (1.2-3.4) 10^3/uL Absolute Monocytes (0.1-0.8) 10^3/uL Absolute Eosinophils (0.0-0.7) 10^3/uL Absolute Basophils (0.0-0.2) 10^3/uL PT (9.3-11.0) sec INR (0.9-1.1) APTT (21.0-27.5) sec Sodium (136-145) mmol/L Potassium (3.5-5.1) mmol/L Chloride (98-107) mmol/L Carbon Dioxide (21.0-32.0) mmol/L Anion Gap (3-11) mmol/L BUN (7-18) mg/dL Creatinine (0.70-1.30) mg/dL Estimated GFR/1.73 m2 (mL/min/1.73m2) Glucose (74-106) mg/dL Calcium (8.5-10.1) mg/dL Magnesium (1.8-2.4) mg/dL Total Bilirubin (0.2-1.0) mg/dL AST (15-37) U/L ALT (16-63) U/L Alkaline Phosphatase (46-116) U/L Creatine Kinase (39-308) U/L Troponin I (<or=60) ng/L Cancelled Total Protein (6.4-8.2) g/dL Albumin (3.4-5.0) g/dL HPI General Mode of arrival: ambulatory . Date/Time Provider Initiated Documentation: 08/21/21 11:15 . Limitations to Documentation: no limitations . Information obtained by: patient, RN/MD (Seen at [facility]), RN notes reviewed and old records reviewed . HPI Narrative: 40-year-old male presents to the ER with a chief complaint of 24 hours post electrocution with 120 volts refrigerator he reports that he was holding on to the 120 V refrigerator outlet with his right hand and the sprinkler with his left hand in approximately 2 to 3 seconds of electrocution , he did not lose consciousness, he did walk off the ladder. He was seen in [facility] prior to arrival and had an EKG which showed some bradycardia was sent to the emergency department for further work-up. He is complaining of some chest pain and right posterior shoulder pain. He is also complaining of some right wrist tenderness which was placed in a splint by urgent care prior to arrival. On initial exam no entrance or exit wounds are noted. He has a past medical history of obesity psoriasis he reports he is on Xarelto for previous DVT. He also has a past medical history of factor V Leiden. Related Data Home Medications Medication Instructions Recorded Confirmed armodafinil 150 mg tablet 250 mg PO DAILY 05/26/20 08/21/21 rivaroxaban 15 mg (42)-20 mg (9) See Rx Instructions PO .COMPLEX 05/26/20 tablets in a starter pack (Xarelto #51 dose pk DVT-PE Treatment 30-Day Starter) albuterol sulfate 90 mcg/actuation 90 mcg inhalation PRN PRN 08/21/21 08/21/21 aerosol inhaler atorvastatin 20 mg tablet 20 mg PO DAILY 08/21/21 08/21/21 rivaroxaban 10 mg tablet (Xarelto) 10 mg PO DAILY 08/21/21 08/21/21 Previous Rx's Medication Instructions Recorded rivaroxaban 15 mg (42)-20 mg (9) See Rx Instructions PO .COMPLEX 05/26/20 tablets in a starter pack (Xarelto #51 dose pk DVT-PE Treatment 30-Day Starter) Allergies Allergy/AdvReac Type Severity Reaction Status Date / Time codeine Allergy Unknown Unverified 08/21/21 11:26 bananas Allergy Intermediate Swelling/Ed Uncoded 08/21/21 11:26 filiberto General MUNA: 3 Review of Systems All systems reviewed & are unremarkable except as noted in HPI and below Constitutional Constitutional: Reports as per HPI Cardiovascular Cardiovascular: Reports as per HPI, Reports chest pain and Denies dyspnea Respiratory Respiratory: Denies hemoptysis and Denies dyspnea Musculoskeletal Musculoskeletal: Reports as per HPI, Reports back pain, Reports myalgias and Reports arthralgias (Right wrist) Integumentary/Breasts Skin/Breast: Denies wounds Psychiatric Psychiatric: Reports anxiety PFSH All Active Problems (Updated 08/21/21 @ 12:42 by Gisell Lazo) Pulmonary embolism (Chronic) Electrocution (Acute) Social History Smoking/Tobacco Use Status: Never Smoking risk assessment performed?: Yes Drug use: Daily Substance use type: marijuana Do you feel safe at home: Yes Do you feel safe in your relationship?: Yes Exam Narrative Exam Narrative: Constitutional: Alert and oriented x3. Appears stated age. Obese habitus. Head: Normocephalic, no trauma. Eyes: Pupils PERRL, Red reflex noted, EOM's intact. Eyelids symmetrical without lesions, discharge, or swelling. ENT: External ear normal to visualization, external nose normal visualization Chest: RRR, Normal S1, S2, distal pulses intact. Slightly bradycardic initially rate of 56 Resp: Lungs clear to auscultation bilaterally, no wheezes, rales, or rhonchi. Abdomen: Soft, non-distended, Normoactive bowel sounds all 4 quads. Musculoskeletal: Normal gait, tenderness with extension and flexion of his right hand and wrist. Skin: No suspicious rashes or lesions. Capillary refill less than 2 sec. Neurologic: Cranial nerves II-XII intact. Alert and oriented x 3. Motor: No deficits noted. Sensory: Intact bilaterally all 4 extremities. Hematologic/Lymphatic: No ecchymosis, no lymphadenopathy.
[2021-08-21 11:29] VITALS: RESP 16
--- NOTE | 2021-08-21 11:30 | DI.RAD_ITS ---
Exam(s) XR WRIST RT COMPLETE EXAM: XR WRIST RT COMPLETE CLINICAL HISTORY: Electrocution injury,R/O FX. TECHNIQUE: 2D digital imaging was performed. COMPARISON: No exams were available for comparison FINDINGS: 3 views No evidence of fracture or dislocation. No significant ulnar variance. Scaphoid unremarkable. Scap holunate distance is normal. Bone density normal. No osseous lesions. No erosions. No radiopaque foreign body IMPRESSION: No significant findings DATA REPOSITORY: RADIATION DOSE DELIVERED:
[2021-08-21 11:53] LABS: Abs Immature Grans 0.02 10^3/uL (0.0-0.06); Absolute Basophil Count 0.07 10^3/uL (0.0-0.2); Absolute Eosinophil Count 0.19 10^3/uL (0.0-0.7); Absolute Lymphocyte Count 2.45 10^3/uL (1.2-3.4); Absolute Monocyte Count 0.57 10^3/uL (0.1-0.8); Absolute Neutrophil Count 3.42 10^3/uL (1.2-6.7); Eosinophils % 2.8; HCT 40.3 % (40.0-50.0); HGB 13.6 g/dL (13.5-17.5); Immature Grans % 0.3; Lymphocytes % 36.5; MCH 30.6 pg (27.0-33.0); MCHC 33.7 % (32.0-36.0); MCV 91 fL (80-95); MPV 9.2 fL (8.0-11.0); Monocytes % 8.5; Neutrophils % 50.9; Platelet Count 271 10^3/uL (130-400); RBC 4.45 10^6/uL (4.36-5.78); RDW 12.2 % (11.8-14.1); RDW-SD 40.6 fL; WBC 6.72 10^3/uL (4.4-10.8)
[2021-08-21 12:08] LABS: PTT Activated 24.3 sec (21.0-27.5); Prothrombin Time 9.9 sec (9.3-11.0)
[2021-08-21 12:10] LABS: ALT 66 U/L (16-63); AST 23 U/L (15-37); Albumin 3.7 g/dL (3.4-5.0); Alkaline Phosphatase 82 U/L (46-116); Anion Gap 8.1 mmol/L (3-11); BUN 13 mg/dL (7-18); Bilirubin, Total 0.3 mg/dL (0.2-1.0); CO2 25.9 mmol/L (21.0-32.0); CREATININE 0.9 mg/dL (0.70-1.30); Calcium 8.8 mg/dL (8.5-10.1); Chloride 104 mmol/L (98-107); Creatine Kinase 155 U/L (39-308); Glucose 93 mg/dL (74-106); Magnesium 2.1 mg/dL (1.8-2.4); Sodium 138 mmol/L (136-145); Total Protein 7.3 g/dL (6.4-8.2); Troponin I < 50 ng/L (<or=60)
[2021-08-21 12:52] VITALS: BP 122/68; PULSE 62; RESP 16; O2SAT 98
== END 2021-08-21 12:53 | disposition home or self-care (01) ==
PROVIDERS: Emergency Provider Registered Nurse Emergency; PCP Nurse Practitioner Family
DX: T75.4XXA Electrocution, initial encounter (principal); S69.91XA Unspecified injury of right wrist, hand and finger(s), initial encounter; R07.9 Chest pain, unspecified; W86.0XXA Exposure to domestic wiring and appliances, initial encounter; R00.1 Bradycardia, unspecified
CPT/HCPCS: 36415; 80053; 82550; 93005; 99284; 73110; 83735; 84484; 85025; 85610; 85730; 93010

== ENCOUNTER → 2023-01-29 15:14 | Outpatient (CLI) | payer BC, SELFPAY ==
--- NOTE | 2023-01-29 14:48 | DI.RAD_ITS ---
Exam(s) XR KNEE LT 3V AP,LAT,FRANSISCO EXAM: XR KNEE LT 3V AP,LAT,FRANSISCO CLINICAL HISTORY: ACUTE LT KNEE PAIN, INSTABILITY, NO TRAUMA, M25.562. TECHNIQUE: 2D digital imaging was performed. Three views. COMPARISON: CR RIGHT KNEE 3 VIEWS from 10/31/2014 FINDINGS: BONES: No acute fracture is present. No bony destructive lesion is seen. JOINTS: The knee is normally aligned. No joint effusion is seen. Joint spaces are maintained. No s ignificant degenerative changes. SOFT TISSUE: Ossification at tibial tubercle. IMPRESSION: No acute abnormality. DATA REPOSITORY: RADIATION DOSE DELIVERED:
== END ==
PROVIDERS: PCP Physician Assistant; Visit Provider Physician Assistant
DX: M25.562 Pain in left knee (principal)
CPT/HCPCS: 73562

== ENCOUNTER 2023-01-29 16:19 | Outpatient (REF) | payer BC, SELFPAY ==
[2023-01-29 19:23] LABS: HCT 39.1 % (40.0-50.0); HGB 13.3 g/dL (13.5-17.5); MCH 30.5 pg (27.0-33.0); MCV 90 fL (80-95); MPV 9.3 fL (8.0-11.0); Platelet Count 314 10^3/uL (130-400); RBC 4.36 10^6/uL (4.36-5.78); RDW 12.1 % (11.8-14.1); RDW-SD 39.8 fL; WBC 7.01 10^3/uL (4.4-10.8)
[2023-01-29 19:39] LABS: Uric Acid 4.7 mg/dL (3.5-7.2)
[2023-01-29 20:23] LABS: Hemoglobin A1C 6.3 % (<5.7)
== END 2023-01-29 16:20 | disposition home or self-care (01) ==
LOC: NCHCN 16:19
PROVIDERS: PCP Physician Assistant; Visit Provider Physician Assistant
DX: R73.03 Prediabetes (principal); M25.562 Pain in left knee
CPT/HCPCS: 85027; 83036; 84550

== ENCOUNTER 2023-11-12 20:55 | Outpatient (CLI) | payer OTHER, SELFPAY ==
--- NOTE | 2023-11-12 | DI.RAD_ITS ---
Exam(s) XR FOOT RT COMPLETE EXAM: XR FOOT RT COMPLETE CLINICAL HISTORY: PAIN RT FOOT, M79.671. TECHNIQUE: 2D digital imaging was performed. Three views. COMPARISON: No exams were available for comparison FINDINGS: BONES: No acute fracture is present. No bony destructive lesion is seen. JOINTS: No dislocation present. No significant degenerative change. SOFT TISSUE: Thickening of the distal Achilles tendon. Small enthesophyte. Small plantar calcaneal spur. IMPRESSION: Soft tissue swelling at the distal Achilles tendon. DATA REPOSITORY: RADIATION DOSE DELIVERED:
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
--- OUTSIDE RECORDS SUMMARY | 2023-11-12 21:02 | XMS_ITS | Encounter Summary ---
Author Organization [facility] Address [address] [place] [address] Care Team Providers Care Automation Application Engineer Name Role Phone Unavailable Primary Care Provider Unavailabl e Encounter Details Date Type Department Care Team (Latest Contact Info) Description 04/18/2015 16:58 EST - 04/18/2015 23:59 EST Hospital Encounter [address] [id number] Unknown, Provider, Discharge Disposition: Home or Self Care Social History Tobacco Use Types Packs/Day Years Used Date Smoking Tobacco: Never Assessed Sex and Gender Information Value Date Recorded Sex Assigned at Not on file Gender Identity Not on file Sexual Orientation Not on file documented as of this encounter Discharge Disposition Disposition Code Departure Means Destination Home or Self [facility] documented in this encounter Plan of Treatment Not on file documented as of this encounter Visit Diagnoses Not on filedocumented in this encounter
--- OUTSIDE RECORDS SUMMARY | 2023-11-12 21:02 | XMS_ITS | Clinical Summary ---
Author Organization [facility] Address [facility] [place] [address] Care Team Providers Care Svp Innovation Partnerships Name Role Phone Tacho Jurado Primary Care Provider [phone] Allergies Active Allergy Reactions Criticality Noted Date Comments Banana 01/13/2019 Codeine 01/13/2019 Medications Medication Sig Dispensed Refills Start Date End Date Status albuteroL 90 mcg/actuation HFA Aerosol Inhaler Inhale 90 puffs into the lungs daily as needed. 05/29/2020 Active atorvastatin (Lipitor) 20 mg Tablet Take 20 mg by mouth daily. 08/26/2020 Active Xarelto 15 mg Tablet Take 20 mg by mouth daily. 10mg 05/26/2020 Active Armodafinil (NUVIGIL) 250 mg Tablet Take 1 tablet by mouth daily. 08/03/2021 Active Active Problems Problem Noted Date Diagnosed Date Bilateral plantar fasciitis 03/04/2023 Bilateral pes planus 03/04/2023 Bilateral foot pain 03/04/2023 Achilles tendinosis of both lower extremities Cholesteatoma 08/07/2021 Pulmonary embolism 08/07/2021 Sleep apnea 08/07/2021 Pain in left shoulder 08/07/2021 Psoriasis 08/07/2021 Family history of clotting disorder 08/07/2021 Overview (08/07/2021): Venous thromboembolism, as above RUL PE, 05-26-2020 Rx rivaroxaban Unprovoked, associated with heterozygous factor V Leiden Class 3 severe obesity in adult 08/07/2021 H/O wisdom tooth extraction 08/07/2021 History of carpal tunnel release 08/07/2021 History of ear, nose, and th roat (ENT) surgery for Sleep Apnea 08/07/2021 Encounters Date Type Department Care Team Description 11/12/2023 Transcribe Orders eDH Incoming Referrals [phone] Taylor Quevedo, PA Pain in right foot from Last 3 Months Immunizations Name Administration Dates Next Due Moderna Covid-19 Monovalent 12Yr+ (Bar Finish Operator 100mc g) 07/20/2020,06/22/2020 Social History Tobacco Use Types Packs/Day Years Used Date Smoking Tobacco: Never Smokeless Tobacco: Never Alcohol Use Standard Drinks/Week Comments Not Currently 0 (1 standard drink = 0.6 oz pur e alcohol) Sex and Gender Information Value Date Recorded Sex Assigned at Male 10/08/2021 9:03 PM EDT Gender Identity Not on file Sexual Orientation Not on file Last Filed Vital Signs Vital Sign Reading Time Taken Comments Blood Pressure 115/73 10/02/2021 8:05 AM EDT Pulse 89 08/29/2020 10:03 AM EDT Temperature 36.9 ??C (98.4 ??F) 08/29/2020 10:03 AM E DT Respiratory Rate 20 08/29/2020 10:03 AM EDT Oxygen Saturation 97% 08/29/2020 10:03 AM EDT Inhaled Oxygen Concentration - - Weight 135.6 kg (299 lb) 06/04/2023 12:58 PM EDT Height 170.2 cm (5' 7) 06/04/2023 12:58 PM EDT Body Mass Index 46.83 06/04/2023 12:58 PM EDT Plan of Treatment Upcoming Encounters Date Type Department Care Team (Late st Contact Info) Description 12/22/2023 9:45 AM EDT Appointment XRay at [address] [place] [phone] 12/22/2023 10:50 AM EDT Office Visit Orthopaedics at [facility] [place] [phone] Clinic, Dr Rizzo Team None Health Maintenance Due Date Last Done Comments HIV screen 2000 Hepatitis C Screening 2000 Hepatitis B vaccine (0-59 yrs) (1) 2001 Tdap adult 2001 Tetanus vaccine 2001 Diabetes Screening (HgbA1C or Glucose) 2022 Covid-19 Vaccine (3 - 2022- season) 11/20/202203/2020, 06/22/2020 Influenza (Flu) vaccine (1 o f 1 - Influenza standard series) 11/21/2023 Care Teams Svp Innovation Partnerships Relationship Specialty Start Date End Date Tacho Jurado PA [address] [place] [address] PCP - General Internal Medicine 08/07/21
--- OUTSIDE RECORDS SUMMARY | 2023-11-12 21:02 | XMS_ITS | Clinical Summary ---
Author Organization [facility] Address [address] [place] [address] Care Team Providers Care C++ Professor Name Role Phone Joaquín Hernandez DNP Primary Care Provider [phone] Allergies Active Allergy Reactions Criticality Noted Date Comments Banana 01/13/2019 Codeine 01/13/2019 Medications Medication Sig Dispensed Refills Start Date End Date Status albuterol (PROAIR HFA) 90 mcg/actuation inhaler Inhale 180 mcg as directed every 4 hours. Active ibuprofen (MOTRIN) 800 mg tablet Take 800 mg by mouth 3 times daily. Active Surgical History Surgery Date Site/Laterality Comments TYMPANOSTOMY TUBE PLACEMENT TONSILLECTOMY Medical History Medical History Date Comments Sleep apnea Social History Tobacco Use Types Packs/Day Years Used Date Smoking Tobacco: Never Assessed Interpersonal Safety Answer Date Record ed Physically Hurt Never 10/22/2019 Verbally Threaten Not on file 10/22/2019 Sex and Gender Information Value Date Recorded Sex Assigned at Not on file Gender Identity Not on file Sexual Orientation Not on file Obstetrics History Last Filed Vital Signs Vital Sign Reading Time Taken Comments Blood Pressure 104/59 01/17/2019 0949 EDT Pulse 95 01/17/2019 0949 EDT Temperature - - Respiratory Rate - - Oxygen Saturation - - Inhaled Oxygen Concentration - - Weight 131.5 kg (290 lb) 01/17/2019 0949 EDT Height 170.2 cm (5' 7) 01/17/201949 EDT Body Mass Index 45.42 01/17/2019 0949 EDT Plan of Treatment Health Maintenance Due Date Last Done Comments Hepatitis C Screen 1982 Hepatitis B Vaccine (1 of 3 - 19+ 3-dose series) 09/24 COVID-19 Vaccine (2022-24 season) 2022 Care Teams C++ Professor Relationship Specialty Start Date End Date Joaquín Hernandez, DNP [address] [place] [address] PCP - General 12/19/18
--- OUTSIDE RECORDS SUMMARY | 2023-11-12 21:02 | XMS_ITS | Encounter Summary ---
Author Organization [facility] [place] [address] Care Team Providers Care Dedicated Regional Driver Name Role Phone Tacho Jurado Primary Care Provider [phone] Encounter Details Date Type Department Care Team (Latest Contact Info) Description 07/29/2023 Travel Social History Tobacco Use Types Packs/Day Years Used Date Smoking Tobacco: Never Smokeless Tobacco: Never Alcohol Use Standard Drinks/Week Comments Not Currently 0 (1 standard drink = 0.6 oz pur e alcohol) Sex and Gender Information Value Date Recorded Sex Assigned at Male 10/08/2021 9:03 PM EDT Gender Identity Not on file Sexual Orientation Not on file documented as of this encounter Plan of Treatment Upcoming Encounters Date Type Department Care Team (Late st Contact Info) Description 12/22/2023 9:45 AM EDT Appointment XRay at [address] [place] [address] 12/22/2023 10:50 AM EDT Office Visit Orthopaedics at [facility] [place] [address] Clinic, Dr Rizzo Team None documented as of this encounter Visit Diagnoses Not on filedocumented in this encounter Care Teams Dedicated Regional Driver Relationship Specialty Start Date End Date Tacho Jurado PA [address] [place] [address] PCP - General Internal Medicine 08/07/21 documented as of this encounter
--- OUTSIDE RECORDS SUMMARY | 2023-11-12 21:02 | XMS_ITS | Encounter Summary ---
[place] [address] Care Team Providers Care Timber Bucker Name Role Phone Tacho Jurado Primary Care Provider Reason for Referral * Physical Therapy (Routine) - Authorized Specialty Diagnoses / Procedures Referred By Contac t Referred To Contact Physical Therapy Diagnoses Bilateral plantar fasciitis Bilateral pes planus Bilateral foot pain Achilles tendinosis of both lower extremities Orthotics Evangelist Cuevas, BEENA [facility] [place] [address] Madhuri Mckinney, PT [facility] PHYSICAL MEDICINE & [place] [address] Referral ID Status Reason Start Date Expiration Date Visits Requested Visits Authorized [id number] Authorized Evaluate and Treat 12/02/2022 12/02/2023 30 30 Reason for Visit * Reason Comments Foot Pain * Consultation (Routine) - Closed Specialty Diagnoses / Procedures Referred By Contac t Referred To Contact Podiatry Diagnoses Heel pain, unspecified laterality Tacho Jurado PA [address] [place] [address] [facility] [place] [address] Referral ID Status Reason Start Date Expiration Date V isits Requested Visits Authorized [id number] Closed Consult, Test & Treat PCP Updated and/or Approved 03/13/2022 03/13/2023 12 12 Encounter Details Date Type Department Care Team (Late st Contact Info) Description 12/02/2022 4:30 PM EDT Office Visit Podiatry at [facility] [place] [address] [facility] [place] [address] Bilateral plantar fasciitis; Bilateral pes planus; Bilateral foot pain; Achilles tendinosis of both lower extremities Social History Tobacco Use Types Packs/Day Years Used Date Smoking Tobacco: Never Smokeless Tobacco: Never Alcohol Use Standard Drinks/Week Comments Not Currently 0 (1 standard drink = 0.6 oz pur e alcohol) Sex and Gender Information Value Date Recorded Sex Assigned at Male 10/08/2021 9:03 PM EDT Gender Identity Not on file Sexual Orientation Not on file documented as of this encounter Progress Notes * Evangelist Cuevas DPM - 12/02/2022 4:30 PM EDT Outpatient Podiatry Clinic Note Name: Isaac Le Age:42 y.o. MR#: [id number] Date of Service: 12/02/2022 SUBJECTIVE: Isaac Le is a very pleasant 42 y.o. male who presents to the clinic today for evaluation and treatment regarding bilateral heel pain. This has been ongoing for him off-and-on for years. He has had success with custom made functional foot orthoses but unfortunately his last pair have broken down to the point where they are no longer functional for him. He is wondering if a new pair of these would be helpful for him and if so he would like to start the process of getting a new set. 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 He does not typically have significant support when he is at home. He says he feels best when he is able to stretch his calf muscles consistently. No trauma to either foot. It is my pleasure seeing him today for this evaluation. Of note, he lives in [place] but works in this area as an airplane electrician. Allergies Allergen Reactions Banana Codeine No past medical history on file. Social History Socioeconomic History Marital status: Spouse name: Not on file Number of children: Not on file Years of education: Not on file Highest education level: Not on file Occupational History Not on file Tobacco Use Smoking status: Never Smokeless tobacco: Never Vaping Use Vaping Use: Never used Substance and Sexual Activity Alcohol use: Not Currently Drug use: Yes Types: Marijuana Sexual activity: Not on file Other Topics Concern Not on file Social History Narrative Not on file Social Determinants of Health Financial Resource Strain: Not on file Food Insecurity: Not on file Transportation Needs: Not on file Physical Activity: Not on file Housing Stability: Not on file No family history on file. Current Outpatient Medications on File Prior to Visit Medication Sig Dispense Refill Armodafinil (NUVIGIL) 250 mg Tablet Take 1 tablet by mouth daily. albuteroL 90 mcg/actuation HFA Aerosol Inhaler Inhale 90 puffs into the lungs daily as needed. atorvastatin (Lipitor) 20 mg Tablet Take 20 mg by mouth daily. Xarelto 15 mg Tablet Take 20 mg by mouth daily. 10mg No current facility-administered medications on file prior to visit. ROS: Per HPI EXAMINATION: GEN: Patient is in no acute distress, alert, awake. DERM: No open lesions or signs of infection to either lower extremity. VASC: Dorsalis pedis + 2/4 bilaterally and posterior tibial pulse + 2/4 bilaterally. Capillary refill 3 seconds to all digits. No significant edema noted. No varicose veins. No claudication, no rest pain, no color changes. Posterior calves soft and nontender. NEURO: Epicritic sensation intact to light touch bilaterally. No significant evidence of sensory neuropathy to either lower extremity. MSK: He has a significantly wide flatfoot structure bilaterally with pain on palpation at the insertion of the plantar fascial band bilateral feet consistent with planter fasciitis. He also has some enlargement of the insertion of the Achilles tendon at the retrocalcaneal area which may be suggestive of tendinosis but also could represent some spurring in the area. He demonstrates a tight gastrocsoleus muscle complex bilaterally. Assessment: plan fasciitis bilateral feet Pes planus bilateral feet Gastroc equinus bilateral feet Insertional Achilles tendinosis bilateral feet Bilateral foot pain PLAN: We discussed different treatment options today. I would recommend impeccable arch support and to that end we discussed what to look for in supportive shoes. The shoe or boot should be stable and resist flexion or twisting. To that end shoes such as New Balance (928, 847,1540) would be acceptable options to try. I would recommend Moe clogs, Oofos sandals or slides to wear in the home to avoid bare feet, slippers, socks, etc. This foot support shoe strategy is very important. We also discussed the importance of proper arch support with orthotics. Over the counter orthotics that would be acceptable would include PowerStep, SOLE, and Superfeet. Custom-made functional foot orthoses were order ed for him through physical therapy which are medically necessary for him at this time as he has wide flatfoot structure makes [id number] devices very difficult. We discussed all of this today.We discussed the importance of gastrocsoleus muscle stretching exercises today to be done multiple times each day if possible. This can be highly effective at decreasing stress on the plantar aspect of the foot. I did put in an order for ankle night splints to be worn as much as possible at home. Ithink these will be very helpful for him as well. He agrees with this plan. A steroid injection could be added at some point in the future if needed. I am hopeful that this pain markedly is markedly r educed over the next 3 to 4 weeks or so. FOLLOW UP: 8 weeks or sooner if any concerns or changes arise Courtney Cuevas DPM, MS Winding Lathe Operator, [facility] documented in this encounter Plan of Treatment Upcoming Encounters Date Type Department Care Team (Late st Contact Info) Description 12/22/2023 9:45 AM EDT Appointment XRay at [address] [place] [address] 12/22/2023 10:50 AM EDT Office Visit Orthopaedics at [facility] [place] [address] Clinic, Dr Rizzo Team None Scheduled Referrals Name Type Priority Associated Diagnoses Orde r Schedule Referral to Physical Therapy Outpatient Referral Routine Bilateral plantar fasciitis Bilateral pes planus Bilateral foot pain Achilles tendinosis of both lower extremities Ordered: 12/02/2022 documented as of this encounter Visit Diagnoses Diagnosis Bilateral plantar fasciitis Plantar fascial fibromatosis Bilateral pes planus Bilateral foot pain Pain in limb Achilles tendinosis of both lower extremities documented in this encounter Care Teams Timber Bucker Relationship Specialty Start Date End Date Tacho Jurado PA [address] [facility] [address] [place] [address] PCP - General Internal Medicine 08/07/21 documented as of this encounter
--- OUTSIDE RECORDS SUMMARY | 2023-11-12 21:02 | XMS_ITS | Encounter Summary ---
Author Organization [facility] Address [facility] [place] [address] Care Team Providers Care Structural Shop Helper Name Role Phone Tacho Jurado Primary Care Provider [phone] Encounter Details Date Type Department Care Team (Latest Contact Info) Description 06/23/2023 7:00 PM EDT - 06/23/2023 7:24 PM EDT Hospital Encounter XRay at [address] [place] [address] Melvin Rizzo MD [facility] [place] [address] Knee instability, left Discharge Disposition: Home Social History Tobacco Use Types Packs/Day Years Used Date Smoking Tobacco: Never Smokeless Tobacco: Never Alcohol Use Standard Drinks/Week Comments Not Currently 0 (1 standard drink = 0.6 oz pur e alcohol) Sex and Gender Information Value Date Recorded Sex Assigned at Male 10/08/2021 9:03 PM EDT Gender Identity Not on file Sexual Orientation Not on file documented as of this encounter Medications at Time of Discharge Medication Sig Dispensed Refills Start Date End Date Armodafinil (NUVIGIL) 250 mg Tablet Take 1 tablet by mouth daily. 08/03/2021 albuteroL 90 mcg/actuation HFA Aerosol Inhaler Inhale 90 puffs into the lungs daily as needed. 05/29/2020 atorvastatin (Lipitor) 20 mg Tablet Take 20 mg by mouth daily. 08/26/2020 Xarelto 15 mg Tablet Take 20 mg by mouth daily. 10mg 05/26/2020 documented as of this encounter Plan of Treatment Upcoming Encounters Date Type Department Care Team (Late st Contact Info) Description 12/22/2023 9:45 AM EDT Appointment XRay at [address] [place] [address] 12/22/2023 10:50 AM EDT Office Visit Orthopaedics at [facility] [place] [address] Clinic, Dr Rizzo Team None documented as of this encounter Procedures Procedure Name Priority Date/Time Associated Diagnosis Comments XR PRE MRI ORBITS Routine 06/23/2023 7:2 3 PM EDT Knee instability, left documented in this encounter Results * XR Pre MRI Orbits (Generic) (06/23/2023 7:23 PM EDT) Anatomical Region Laterality Modality Head N/A Digital Radiogra phy Impressions 06/23/2023 7:36 PM EDT No radiopaque foreign bodies within the orbits. Thank you for letting us participate in the care of this patient. ??If you are a health care provider and have any questions regarding this report, please contact the number below. ??For patients who have questions please contact the health care connector that requested your imaging first. ? 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 COMPARISON: Radiograph 08/20/2021 FINDINGS: No radiopaque foreign bodies within the orbits. The paranasal sinuses and mastoid air cells are well aerated. No acute osseous findings. 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 COMPARISON: Radiograph 08/20/2021 FINDINGS: No radiopaque foreign bodies within the orbits. The paranasal sinusesand mastoid air cells are well aerated. No acute osseous findings. IMPRESSION No radiopaque foreign bodies within the orbits. Thank you for letting us participate in the care of this patient. If youare a health care provider and have any questions regarding this report,please contact the number below. For patients who have questions please contactthe health care connector that requested your imaging first. Melvin Rizoz MD IMG DX ORDERABLES documented in this encounter Visit Diagnoses Diagnosis Knee instability, left documented in this encounter Care Teams Structural Shop Helper Relationship Specialty Start Date End Date Tacho Jurado PA [address] [place] [address] PCP - General Internal Medicine 08/07/21 documented as of this encounter
--- OUTSIDE RECORDS SUMMARY | 2023-11-12 21:02 | XMS_ITS | Encounter Summary ---
Author Organization [facility] [place] [address] Care Team Providers Care Valve Inspector Name Role Phone Tacho Jurado Primary Care Provider [phone] Encounter Details Date Type Department Care Team (Late Contact Info) Description 11/14/2021 [place]phone [place] [phone] Rocio lGez Social History Tobacco Use Types Packs/Day Years Used Date Smoking Tobacco: Never Smokeless Tobacco: Never Alcohol Use Standard Drinks/Week Comments Not Currently 0 (1 standard drink = 0.6 oz pur e alcohol) Sex and Gender Information Value Date Recorded Sex Assigned at Male 10/08/2021 9:03 PM EDT Gender Identity Not on file Sexual Orientation Not on file documented as of this encounter Miscellaneous Notes * Telephone Encounter - Rocio Glez - 11/14/2021 9:16 AM EDT External call to patients insurance carrier-[employer] at . Spoke with sales representative facility services Marta(reference #[id number]). Communicated speaking on a recorded line. Inquired about patients [id number] benefits for physical therapy. At this time patients insurance plan was stated as active as of March 22, 2021 and only covers pharmacy. Patients plan does not cover medical. documented in this encounter Plan of Treatment Upcoming Encounters Date Type Department Care Team (Late Contact Info) Description 12/22/2023 9:45 AM EDT Appointment XRay at [address] [place] [address] 12/22/2023 10:50 AM EDT Office Visit Orthopaedics at [facility] [place] [address] Clinic, Dr Rizzo Team None documented as of this encounter Visit Diagnoses Not on filedocumented in this encounter Care Teams Valve Inspector Relationship Specialty Start Date End Date Tacho Jurado PA [address] [place] [address] PCP - General Internal Medicine 08/07/21 documented as of this encounter
--- OUTSIDE RECORDS SUMMARY | 2023-11-12 21:02 | XMS_ITS | Encounter Summary ---
[place] [address] Care Team Providers Care Gauger Delivery Name Role Phone Tacho Jurado Primary Care Provider [phone] Reason for Referral * Consultation (Urgent) - Authorized Specialty Diagnoses / Procedures Referred By Contac t Referred To Contact Orthopaedics Diagnoses Pain in right foot Achilles rupture, right CONCERN FOR POTENTIAL PARTIAL ACHILLES INJURY Taylor Quevedo PA [address] [place] [address] [facility] [address] [place] [phone] Referral ID Status Reason Start Date Expiration Date Visits Requested Visits Authorized [id number] Authorized Consult, Test & Treat PCP Updated and/or Approved 11/12/2023 05/14/2024 6 6 Encounter Details Date Type Department Care Team (Late st Contact Info) Description 11/12/2023 Transcribe Orders eDH Incoming Referrals [phone] Taylor Quevedo PA [address] [place] [address] Pain in right foot Social History Tobacco Use Types Packs/Day Years [...] 12/22/2023 9:45 AM EDT Appointment XRay at [address] [place] [address] 12/22/2023 10:50 AM EDT Office Visit Orthopaedics at [facility] [place] [address] Clinic, Dr Rizzo Team None Scheduled Referrals Name Type Priority Associated Diagnoses Order Schedule Referral to Orthopaedics Outpatient Referral Urgent Pain in right foot Ordered: 11/12/2023 documented as of this encounter Visit Diagnoses Diagnosis Pain in right foot Pain in limb documented in this encounter Care Teams Gauger Delivery Relationship Specialty Start Date End Date Tacho Jurado PA [address] [place] [address] PCP - General Internal Medicine 08/07/21 documented as of this encounter
--- OUTSIDE RECORDS SUMMARY | 2023-11-12 21:02 | XMS_ITS | Referral Summary ---
Author Organization [facility] Address [address] [place] [address] Care Team Providers Care Associate Sales Name Role Phone Joaquín Hernandez DNP Primary Care Provider [phone] Allergies Active Allergy Reactions Criticality Noted Date Comments Banana 01/13/2019 Codeine 01/13/2019 Medications Medication Sig Dispensed Refills Start Date End Date Status albuterol (PROAIR HFA) 90 mcg/actuation inhaler Inhale 180 mcg as directed every 4 hours. Active ibuprofen (MOTRIN) 800 mg tablet Take 800 mg by mouth 3 times daily. Active Social History Tobacco Use Types Packs/Day Years [...] - - Weight 131.5 kg (290 lb) 01/17/2019948 EDT Height 170.2 cm (5' 7) 01/17/2019948 EDT Body Mass Index 45.42 01/17/2019 0949 EDT Plan of Treatment Not on file Care Teams Associate Sales Relationship Specialty Start Date End Date Joaquín Hernandez [place] [place] [phone] [facility] - General 12/19/18
--- OUTSIDE RECORDS SUMMARY | 2023-11-12 21:02 | XMS_ITS | Encounter Summary ---
Author Organization [facility] Address [address] [place] [address] Care Team Providers Care Drainage Design Coordinator Name Role Phone Unknown, Provider Primary Care Provider [phone] Encounter Details Date Type Department Care Team (Late st Contact Info) Description 04/18/2015 Results Only [facility] [phone] Rubens Medeiros, [address] [place] [address] Social History Tobacco Use Types Packs/Day Years Used Date Smoking Tobacco: Never Assessed Sex and Gender Information Value Date Recorded Sex Assigned at Not on file Gender Identity Not on file Sexual Orientation Not on file documented as of this encounter Plan of Treatment Not on file documented as of this encounter Procedures Procedure Name Priority Date/Time Associated Diagnosis Comments SURGICAL PATHOLOGY Routine 04/18/2015 10 :28 EST documented in this encounter Results * SURGICAL PATHOLOGY (04/18/2015 10:28 EST) Pathology Report: SURGICAL PATHOLOGY REPORT Reports generated via electronic interface contain original data; however they are lacking the format of the original report. Caution should be taken when reading/interpretin g unformatted reports. Name: ? LAKSHMI WADDELL ? Accession #: ? [id number] ? : ? 1980 (Age: 34) ??M ? Collect Date: ? 04/18/2015 ? Location: ? [facility] ? Receive Date: ? 04/19/2015 ? Provider: RUBENS MEDEIROS DO Copy to: AMIE YANCEY MD ? Final Pathologic Diagnosis: A. TONSIL, RIGHT, TONSILLECTOMY: - ??Tonsillar tissue with: ? - ??Focal fibrino-suppurative active tonsillitis. - ??Reactive lymphoid follicular hyperplasia. - ??Surface bacterial colonies with features suggestive of actinomyces. - ??Portions of benign skeletal muscle and salivary gland. B. TONSIL, RIGHT, TONSILLECTOMY: - ??Tonsillar tissue with: - ??Focal fibrino-suppurative active tonsillitis. - ??Reactive lymphoid follicular hyperplasia. - ??Surface bacterial colonies with features suggestive of actinomyces. - ??Portions of benign skeletal muscle and salivary gland. C. ORAL MUCOSA, UVULA MASS, EXCISION: - ??Squamous papilloma. ??See comment. - ??No dysplasia. - ??Minor salivary gland. D. UVULA, PARTIAL RESECTION: - ??Uvular tissue with: ? - ??Minor salivary gland with focal chronic inflammation, mild excretory ductal dilation and acinar hyperplasia. - ??Benign skeletal muscle. Comment: Immunohistochemical study, with appropriate positive and negative controls, is performed on (C) to further characterize the lesion. ANTIBODY(CLONE)(BLO CK):RESULT P16 (E6H4TM, [place]) (C1): Focally positive. NOTE: ??One or more of the reagents used in immunoperoxidase testing in this case may not have been cleared or approved by the U.S. Food and Drug Administration (FDA). ??The FDA has determined that such clearance or approval is not necessary. ??These tests are used for clinical purposes. ??They should not be regarded as investigational or for research. ??These reagents' performance characteristics have been determined by [facility]. ??The positive and negative controls worked appropriately. This laboratory is certified under the Clinical Laboratory Improvement Amendments of 1988 (CLIA-88) as qualified to perform high complexity clinical laboratory testing. ?? Document reviewed and electronically signed by: Kip Schumacher MD Report ??Date: 04/25/2015 17:09 By the signature above, the attending physician certifies that he/she has personally conducted a gross and/or microscopic examination of the described specimens and rendered or confirmed the above diagnosis. Specimen(s) Received: A. ??Right tonsil B. ??Left tonsil C. ??Uvula mass D. ??Uvula partial resection Clinical History: Uvula mass, ? 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 ?Received in formalin labelled with proper patient identification (initials L, K) and right tonsil is a palatine tonsil (3.8 x 2.2 x 1.8 cm). The mucosa is smooth and glistening with prominent crypts. The specimen comes with a moderate amount of attached heavily cauterized fibrous tissue. ?? Serial sections reveal lobular homogeneous tissue without abnormality. Two call center representative cross sections are submitted as A1. B. ?Received in formalin labelled with proper patient identification (initials L, K) and left tonsil is a palatine tonsil (3.8 x 2.5 x 1.8 cm). The mucosa is smooth and glistening with prominent crypts. The specimen comes with a moderate amount of attached heavily cauterized fibrous tissue. ?? Serial sections reveal lobular homogeneous tissue without abnormality. Two call center representative cross sections are submitted as B1. C. ?Received in formalin labelled with proper patient identification (initials L, K) and uvula mass is an unoriented nichols-rehman heavily cauterized and focally bosselated soft tissue (1.1 x 0.7 x 0.5 cm). The cauterized aspect is inked blue. Sectioning discloses a smooth cut surface with focally hemorrhagic areas within the bosselated stalk. The entire specimen is bisected and submitted as C1. D. ?Received in formalin labelled with proper patient identification (initials L, K) and uvula partial resection are three fragments of unoriented nichols-rehman, focally hemorrhagic, and focally cauterized soft tissues (1.3 x 0.8 x 0.8 cm to 1.5 x 1.1 x 0.7 cm). The hemorrhagic and cauterized surfaces are inked blue. Sectioning reveals nichols-white, focally hemorrhagic tissue. The specimen is submitted entirely as follows: BLOCK MENDOZA D1- ??largest tissue fragment, sectioned and entirely submitted D2- ??smallest tissue fragment, sectioned and entirely submitted D3- ??mid sized tissue fragment, sectioned and entirely submitted Garth Almaraz 04/22/2015 1:29 PM End of Report [facility] 04/18/2015 10:2 8 EST 04/19/2015 10:28 EST Rubens Medeiros DO PATHOLOGY ORDER DEBBI [facility] [address] [place] [address] documented in this encounter Visit Diagnoses Not on filedocumented in this encounter Care Teams Drainage Design Coordinator Relationship Specialty Start Date End Date Unknown, Provider, PCP - General 04/19/15 12/18/18 documented as of this encounter
--- OUTSIDE RECORDS SUMMARY | 2023-11-12 21:02 | XMS_ITS | Encounter Summary ---
Author Organization [facility] Address [facility] [place] [address] [place] [address] Care Team Providers Care Supervisor [employer]ension [employer] Name Role Phone Tacho Jurado Primary Care Provider [phone] Encounter Details Date Type Department Care Team (Late st Contact Info) Description 06/08/2023 Telephone Orthopaedics at [facility] [place] [id number] Kim, MARIBEL Nichols [facility] [place] [address] Social History Tobacco Use Types Packs/Day Years [...] encounter Miscellaneous Notes * Telephone Encounter - Cori Patton - 06/08/2023 3:14 PM EDT Answered the safety questions for LT KNEE MRI and sent for batch. documented in this encounter Plan of Treatment Upcoming Encounters Date Type Department Care Team (Late st Contact Info) Description 12/22/2023 9:45 AM EDT Appointment XRay at [address] [place] [address] 12/22/2023 10:50 AM EDT Office [place] [address] Clinic, Dr Rizzo Team None documented as of this encounter Visit Diagnoses Not on filedocumented in this encounter Care Teams Supervisor [employer] Ware[employer] Relationship Specialty Start Date End Date Tacho Jurado PA [address] [place] [address] PCP - General Internal Medicine 08/07/21 documented as of this encounter
--- OUTSIDE RECORDS SUMMARY | 2023-11-12 21:02 | XMS_ITS | Encounter Summary ---
Author Organization [facility] Address [address] [place] [address] Care Team Providers Care Director Of Therapy Services Name Role Phone Joaquín Hernandez DNP Primary Care Provider [phone] Encounter Details Date Type Department Care Team (Late st Contact Info) Description 05/26/2020 Lab Requisition [facility] Pathology & Laboratory Medicine - [facility] [address] [place], [place] [address] Outr Resulting Lab, Provider Social History Tobacco Use Types Packs/Day Years [...] Procedure Name Priority Date/Time Associated Diagnosis Comments ZZCOVID-19 TEST [facility] PCR Today 05/26/2020 9:15 EST COVID-19 TESTING Routine 05/26/2020 9:15 EST documented in this encounter Results * COVID-19 TEST [facility] PCR (05/26/2020 9:15 EST) Swab ENTIRE NASOPHARYNX / Unknown 05/26/2020 9:15 EST 05/26/2020 19:28 EST Provider Outr Resulting Lab MICROBIOLOGY - GENERAL ORDERABLES Performing Organization Address City/State/[facility] Co de Phone Number [facility] [address] [place] [address] * COVID-19 TESTING (05/26/2020 9:15 EST) COVID-19 rt-PCR Result Negative Negative 05/27/2020 12:46 EST [facility] Comment: This test has not been FDA cleared or approved. This test has been authorized by FDA under an EUA for use by authorized laboratories. This test has been authorized only for detection of nucleic acid from 2019-nCoV, not for any other viruses or pathogens. This test is only authorized for the duration of the declaration that circumstances exist justifying the authorization of emergency use of in vitro diagnostic tests for detection and/or diagnosis of 2019-nCoV under section 564(b)(1) of Act, 21 U.S.C ?? 360bbb-3(b) (1), unless the authorization is terminated or revoked sooner. Negative results do not preclude 2019-nCoV infection and should not be used as the sole basis for treatment or other patient management decisions. Negative results must be combined with clinical observations, patient history, and epidemiological information. Performed on the [employer] [place] Fusion instrument Performing Lab [place] [facility] Lab 05/27/2020 12:46 EST [facility] Swab 05/26/2020 9:15 EST 05/26/2020 19:28 EST Provider Outr Resulting Lab MICROBIOLOGY - GENERAL ORDERABLES Performing Organization Address [facility] Co de Phone Number [facility] [address] [place] [address] documented in this encounter Visit Diagnoses Not on filedocumented in this encounter Care Teams Director Of Therapy Services Relationship Specialty Start Date End Date Joaquín Hernandez, [facility] [place] [address] [place] [id number] PCP - General 12/19/18 documented as of this encounter
--- OUTSIDE RECORDS SUMMARY | 2023-11-12 21:02 | XMS_ITS | Encounter Summary ---
[place] [address] Care Team Providers Care Barrel Rifler Hook Name Role Phone Tacho Jurado Primary Care Provider Reason for Referral * Consultation (Routine) - Closed Specialty Diagnoses / Procedures Referred By Contnoemi t Referred To Contact Podiatry Diagnoses Heel pain, unspecified laterality Tacho Jurado PA [address] [place] [address] [facility] [place] [address] Referral ID Status Reason Start Date Expiration Date V isits Requested Visits Authorized [id number] Closed Consult, Test & Treat PCP Updated and/or Approved 03/13/2022 03/13/2023 12 12 Encounter Details Date Type Department Care Team (Latest Contact Info) Description 03/13/2022 Transcribe Orders eDH Incoming Referrals [phone] Tacho Jurado PA [address] [place] [address] Heel pain, unspecified laterality Social History Tobacco Use Types Packs/Day Years [...] 12/22/2023 9:45 AM EDT Appointment XRay at [address] [place] [address] 12/22/2023 10:50 AM EDT Office Visit Orthopaedics at [facility] [place] [address] Clinic, Dr Rizzo Team None Scheduled Referrals Name Type Priority Associated Diagnoses Orde r Schedule Referral to Podiatry Outpatient Referral Routine Heel pain, unspecified laterality Ordered: 03/13/2022 documented as of this encounter Visit Diagnoses Diagnosis Heel pain, unspecified laterality documented in this encounter Care Teams Barrel Rifler Hook Relationship Specialty Start Date End Date Tacho Jurado PA [address] [place] [address] PCP - General Internal Medicine 08/07/21 documented as of this encounter
--- OUTSIDE RECORDS SUMMARY | 2023-11-12 21:02 | XMS_ITS | Encounter Summary ---
Author Organization [facility] Address [facility] [place] [place] [address] Care Team Providers Care Workforce Manager Name Role Phone Tacho Jurado Primary Care Provider [phone] Reason for Visit * Physical Therapy (Routine) - Closed Specialty Diagnoses / Procedures Referred By Contac t Referred To Contact Physical Therapy Diagnoses Tear of left rotator cuff, unspecified tear extent, unspecified whether traumatic Left shoulder pain, unspecified chronicity Petra Rutherford MD [facility] [place] [address] [address] [place] [address] Referral ID Status Reason Start Date Expiration Date V isits Requested Visits Authorized [id number] Closed Evaluate and Treat 10/02/2021 10/02/2022 30 30 Encounter Details Date Type Department Care Team (Late st Contact Info) Description 11/28/2021 8:30 AM EDT Office Visit Physical Therapy at [facility] [address] [place] [phone] Graham Huynh, PT Chronic pain in left shoulder Social History Tobacco Use Types Packs/Day Years [...] as of this encounter Miscellaneous Notes * Treatment - Therapy - Graham Huynh, PT - 11/28/2021 8:30 AM EDT Physical Therapy Treatment Note Date of Exam/First Treatment: 11/28/2021 Referring Provider: Petra Rutherford MD [facility] [place]opa[place] [address] Diagnosis and Pertinent Co-Morbidities affecting Plan of Care: ICD-10-CM 1. Chronic pain in left shoulder M25.512 G89.29 Date of onset/surgery: July 2021 Procedure: NA Precautions: NA Subjective Pt reports that his shoulder has been doing fairly well. He had pain in bicep after last visit. He rates his pain symptoms today as 03/31. Objective CPT Charges: Therex: Strength/Endurance/ROM (61544) 45 min - Pt shoulder AROM continues to be WNL Therex: UBE 1x8min IR/ER RTB 2x15 bilat Rows YTB 2x15 Bilat ER 2x10 Wall circles 2x1min Table scap push ups 2x15 Shoulder taps from table 3x15 Star excursion w/stationary arm on ball YTB 3x15 bilat IR towel stretch 3x30 sec Current HEP: No scans are attached to the encounter. Assessment Pt continues to lack shoulder stability, however it does improve from visit to visit. He tolerated all increases in resistance in difficulty today, but noted that they were more challenging exercisesfor him. Pt continues to lack IR and was given an appropriate stretch to improve that at this time. Isaac Le will continue to benefit from skilled PT services. Plan Slowly increase resistance again and monitor pain Total treatment time: 45 minutes Total timed code treatment: 45 minutes Pt understands and agrees with physical therapy plan of care. Graham Huynh, PT documented in this encounter Plan of Treatment Upcoming Encounters Date Type Department Care Team (Late st Contact Info) Description 12/22/2023 9:45 AM EDT Appointment XRay at [address] [place] [address] 12/22/2023 10:50 AM EDT Office Visit Orthopaedics at [facility] [address] Clinic, Dr Rizzo Team None documented as of this encounter Visit Diagnoses Diagnosis Chronic pain in left shoulder Pain in joint, shoulder region documented in this encounter Care Teams Workforce Manager Relationship Specialty Start Date End Date Tacho Jurado PA [address] [place] [address] PCP - General Internal Medicine 08/07/21 documented as of this encounter
--- OUTSIDE RECORDS SUMMARY | 2023-11-12 21:02 | XMS_ITS | Encounter Summary ---
Author Organization Formerly [facility] Address [facility] [address] Care Team Providers Care Buyer Assistant Name Role Phone Tacho Jurado Primary Care Provider [phone] Reason for Referral * Physical Therapy (Routine) - Closed Specialty Diagnoses / Procedures Referred By Contac t Referred To Contact Physical Therapy Diagnoses Knee instability, left Left knee pain, unspecified chronicity KimMehnaz PA [facility] [place] [address] [facility] [address] [place] [address] Referral ID Status Reason Start Date Expiration Date V isits Requested Visits Authorized [id number] Closed Evaluate and Treat 06/04/2023 06/03/2024 12 12 * Diagnostic Test (Routine) - Closed Specialty Diagnoses / Procedures Referred By Contac t Referred To Contact Radiology Diagnoses Knee instability, left Procedures MRI Knee wo Contrast Left (Generic) KimMehnaz PA [facility] [place] [address] [facility] [place] [address] Referral ID Status Reason Start Date Expiration Date V isits Requested Visits Authorized [id number] Closed Specialty Service Requested 06/04/2023 12/04/2024 1 1 Reason for Visit * Reason Comments Establish Care L KNEE PAIN * Consultation (Routine) - Closed Specialty Diagnoses / Procedures Referred By Jame navarro Referred To Contact Orthopaedics Diagnoses Left knee pain Acute internal derangement of left knee Tacho Jurado PA [address] [place] [address] [facility] [address] [place] [address] Referral ID Status Reason Start Date Expiration Date V isits Requested Visits Authorized [id number] Closed Consult, Test & Treat PCP Updated and/or Approved 05/05/2023 05/04/2024 1 1 Encounter Details Date Type Department Care Team (Late st Contact Info) Description 06/04/2023 1:00 PM EDT [place] [phone] KimMehnaz PA [facility] DR [place] [address] Knee instability, left; Left knee pain, unspecified chronicity Social History Tobacco Use Types Packs/Day Years Used Date Smoking Tobacco: Never Smokeless Tobacco: Never Alcohol Use Standard Drinks/Week Comments Not Currently 0 (1 standard drink = 0.6 oz pur e alcohol) Sex and Gender Information Value Date Recorded Sex Assigned at Male 10/08/2021 9:03 PM EDT Gender Identity Not on file Sexual Orientation Not on file documented as of this encounter Last Filed Vital Signs Vital Sign Reading Time Taken Comments Blood Pressure - - Pulse - - Temperature - - Respiratory Rate - - Oxygen Saturation - - Inhaled Oxygen Concentration - - Weight 135.6 kg (299 lb) 06/04/2023 12:58 PM EDT Height 170.2 cm (5' 7) 06/04/2023 12:58 PM EDT Body Mass Index 46.83 06/04/2023 12:58 PM EDT documented in this encounter Progress Notes * Kim, MARIBEL Nichols - 06/04/2023 1:00 PM EDT Images from the original note were not included. Department of Orthopaedics Division of Adult Joint Reconstructive Surgery CHIEF COMPLAINT: Chief Complaint Patient presents with [facility] L KNEE PAIN ARTHROPLASTY HISTORY/PREVIOUS KNEE SURGERY: none Isaac was referred from [address]IB[address] [place] [address] I.D.: Isaac Le is a 42 y.o. year old male being seen today to discuss his left knee. His history and physical exam were reviewed in detail. He states the knee has been symptomatic for weeks. The pain is predominantly medial, anterior. There was not inciting trauma/injury. 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 No obvious inciting injury. Pain progressed over the course of the rest of the work week. Had trouble weightbearing due to pain. Improved with rest over the weekend. Has been using ice, topical analgesics, brace, patellar strap. Does not tolerate oral NSAIDs due to factor V Leiden. Sense of pulling and tightness in the front of the knee. Feels popping medially. Going downstairs is especially painful. Mr. Le denies fevers/chills/headache/chest pain/shortness of breath/abdominal pain/nausea or vomiting/weight changes He does endorse a history of DVT/PE or clotting disorder. QUESTIONNAIRE RESPONSES: 06/04/2023 General Health, Prior Treatments, PreExisting Condition, Health Habits, About You PROMIS-10 General Health Poor PROMIS-10 Quality of Life Good PROMIS-10 Physical Health Poor PROMIS-10 Mental Health Fair PROMIS-10 Social Activity Fair PROMIS-10 Everyday Activities A little PROMIS-10 Pain 7 PROMIS-10 Fatigue Severe PROMIS-10 Social Roles Good PROMIS-10 Anxious or Depressed Sometimes PROMIS PHYSICAL SCORE (range 16-68) 26.7 PROMIS MENTAL SCORE (range 21-68) 38.8 Treatments Tried Regular exercise Weight loss Brace Walking aids (e.g.cane, walker) Medicines applied on the skin (topical) Acetaminophen (e.g. Tylenol) Over the counter anti-inflammatory drugs (e.g Advil, Aspirin, Aleve) TKA Grade 2 Alzheimers or dementia No Cirrohosis or liver disease No HIV/AIDS No Pain in more than one joint in legs Yes Back or neck pain Yes Heart attack No Heart failure No Unclog/bypass leg arteries No Stroke, blood clot, TIA Yes Difficulty moving arm/leg No Asthma No Emphysema, chronic bronchities, or COPD No Stomach ulcers/peptic ulcer disease No Diabetes No Poor kidney function No Rheumatic condtions Yes Take medications for rheumatic conditions No Cancer No Weight (lbs) 299 Height (feet) 5 feet Height (Inches) 7 BMI 46.82 (Obese) Ever used tobacco products No Ever used alcoholic beverages Yes Alcohol frequency Once or twice WHO - Alcohol Advice 2 (You are at low risk of health and other problems from your current pattern of use.) Live Alone No Marital situation Schooling Some college or 2 - year degree Combined Household Income $75,000 or more # People Supported 4 Dutch, , No, not Dutch// Race White Health Literacy Extremely Currently working Yes Current job situation Full-time No data to display No data to display ALLERGIES Allergies Allergen Reactions Banana Codeine Allergies to metals: none. SOCIAL HISTORY: reports that he has never smoked. He has never used smokeless tobacco. He reports that he does not currently use alcohol. He reports current drug use. Drug: Marijuana. 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 SIGNIFICANT MEDICAL COMORBIDITIES: Patient Active Problem List Diagnosis Code Cholesteatoma H71.90 Pulmonary embolism I26.99 Sleep apnea G47.30 Pain in left shoulder M25.512 Psoriasis L40.9 Family history of clotting disorder Z83.2 Class 3 severe obesity in adult E66.01 H/O wisdom tooth extraction K08.409 History of carpal tunnel release Z98.890 History of ear, nose, and throat (ENT) surgery for Sleep Apnea Z98.890 Bilateral plantar fasciitis M72.2 Bilateral pes planus M21.41, M21.42 Bilateral foot pain M79.671, M79.672 Achilles tendinosis of both lower extremities M67.88 VITALS: BP Readings from Last 1 Encounters: 10/02/21 115/73 Pulse Readings from Last 1 Encounters: 08/29/20 89 Height: 170.2 cm (5' 7) Weight: 135.6 kg (299 lb) Body mass index is 46.83 kg/m??. PHYSICAL EXAM: Constitution: Isaac sits in the clinic today alert, appears stated age, and cooperative. The patientis alert and oriented. I have made the following determinations: Knee Exam: Left Prior surgery on this joint: No Knee ROM: Extension:0 Flexion: 115 Alignment: 0-4 degrees Neutral Stability: A/P Translation <5mm Varus (lateral stability) <5mm Valgus (medial stability) <5mm Extension La degrees or less Radiographic evidence of joint damage: [0= normal; 1=minimal ; 2= some osteophytes , some narrowing ; 3= moderate osteophytes, significantnarrowing, mild deformity; 4= large osteophytes, marked narrowing, obvious deformity]: 1= minimal Patella Tracking: Normal Skin Integrity: Normal Pulses Palpable: Left PT:Yes Left DP:Yes Motor/Sensory: Distal Motor:Normal Distal Sensory: Normal Quadriceps Strength:5 Knee Effusion: 1+ Ecchymosis: none Patella: Patellar apprehension test: negative Patellar compression test: negative Tenderness: medial joint line, patellar tendon insertion, and pes anserine IMAGING: X-rays of the left knee demonstrate minimal DJD, effusion ASSESSMENT AND PLAN: Mr. Le is a 42 y.o. year old male with pain of his left knee Questions solicited and answered. Patient voiced understanding to info/instructions given. Radiology studies and anatomy of joint knee reviewed. Reviewed exam and imaging. No significant DJD or bony injury. Discussed strain versus derangement. Will plan injection and HEP today. If pain persists consider MRI to rule out MMT, PF DJD. RTC PRN PROCEDURE NOTE: left knee Injeciton A time-out was performed and the left knee was confirmed to be the site of injection. The patient was confirmed to have no allergies to betadine, local anesthetics, or corticosteroids. The patient was reminded that blood glucose can be transiently elevated by the corticosteroid injection. The patient was counseled about the potential risks of the procedure, including infection, bleeding and incomplete relief of symptoms. The patient provided consent. I also discussed with the patient that cortisone is not healthy for muscle tendons or cartilage and that there is an increased risk with repeated injections. The skin was prepped widely over the left knee. Then, using sterile technique, a solution consisting of 4cc 1% lidocaine (40 mg), and 1 cc Kenalog (40 mg) was injected into the left knee. The needle was felt to slide into the capsule and the mixture flowed freely. The skin was cleaned and a Band-Aid was applied. The patient tolerated the procedure well. MARIBEL Rivas documented in this encounter Plan of Treatment Upcoming Encounters Date Type Department Care Team (Late st Contact Info) Description 12/22/2023 9:45 AM EDT Appointment XRay at [address] [place] [address] 12/22/2023 10:50 AM EDT Office Visit Orthopaedics at [facility] [place] [address] Clinic, Dr Rizzo Team None Scheduled Referrals Name Type Priority Associated Diagnoses Orde r Schedule Referral to Physical Therapy Outpatient Referral Routine Knee instability, left Left knee pain, unspecified chronicity Ordered: 06/04/2023 documented as of this encounter Results * MRI Knee wo Contrast Left (Generic) (06/23/2023 8:24 PM EDT) Anatomical Region Laterality Modality Knee Left Magnetic Resonan ce Impressions 06/24/2023 8:41 AM EDT 1. ??Multidirectional tear of the posterior horn of the medial meniscus. 2. ??Patellofemoral chondrosis. 3. ??1.6 cm focus of loculated joint fluid versus a synovial cyst along the posterior margin of the proximal tibial-fibular joint and along the popliteus myotendinous junction. 4. ??Small Ruiz's cyst. Thank you for letting us participate in the care of this patient. ??If you are a health care provider and have any questions regarding this report, please contact the number below. ??For patients who have questions please contact the health home care nurse that requested your imaging first. ? Electronically signed by: Rocio Castro MD, [facility] ([phone]), at 06/24/2023 8:41 AM Narrative 06/24/2023 8:41 AM EDT EXAMINATION: MRI KNEE WO CONTRAST LEFT (GENERIC) CLINICAL HISTORY: left knee pain, concern for MMT ?? (as entered by ordering provider in the order requisition) COMPARISON: Left knee radiograph 01/29/2023 TECHNIQUE: Routine noncontrast MRI of the Left knee was performed. ??Sequences include sagittal PD with and without fat saturation, coronal PD with and without fat saturation, axial T2 with fat saturation, and axial T1. FINDINGS: Menisci: Multidirectional tear of the posterior horn of the medial meniscus with radial, vertical, and horizontal components (series 5, image 21 series 7, image 24). The lateral meniscus is intact. Ligaments and tendons: The anterior cruciate ligament is intact. The posterior cruciate ligament is intact. The medial collateral ligament complex is intact. The fibular collateral ligament, iliotibial band, biceps femoris tendon, and popliteus tendon is intact. Extensor mechanism: The quadriceps and patellar tendons are intact. The medial and lateral retinacula are intact. Normal signal of Hoffa's fat pad. Bones, cartilage and joint: Small knee joint effusion. No acute fracture. No bone marrow replacing lesion. Chondral delamination overlying the median ridge of the patella. Full-thickness cartilage loss of the lateral patellar facet. Associated subchondral cystic change of the patella. Cartilage overlying the trochlea is intact. Cartilage of the medial compartment is intact. Cartilage of the lateral compartment is intact. Cartilage of the tibial-fibular joint is intact. Loculated joint fluid versus a synovial cyst along the posterior margin of the proximal tibial-fibular joint and along the popliteus myotendinous junction measuring 1.6 x 1.4 x 1.1 cm. (Series 5, image 33 and 32 and series 8, image 23 and 24). Muscles: Normal bulk and signal of the visualized muscles. Neurovascular: Normal signal and caliber of the tibial and common peroneal nerves. Other Extra-articular: Small Ruiz's cyst. No fluid distention of the pes anserine bursa. Procedure Note Rocio Castro MD - 06/24/2023 EXAMINATION: MRI KNEE WO CONTRAST LEFT (GENERIC) CLINICAL HISTORY: left knee pain, concern for MMT (as entered byordering provider in the order requisition) COMPARISON: Left knee radiograph 01/29/2023 TECHNIQUE: Routine noncontrast MRI of the Left knee was performed.Sequences include sagittal PD with and without fat saturation, coronal PD with andwithout fat saturation, axial T2 with fat saturation, and axial T1. FINDINGS: Menisci: Multidirectional tear of the posterior horn of the medial meniscus withradial, vertical, and horizontal components (series 5, image 21 series 7, image24). The lateral meniscus is intact. Ligaments and tendons: The anterior cruciate ligament is intact. The posterior cruciate ligament is intact. The medial collateral ligament complex is intact. The fibular collateral ligament, iliotibial band, biceps femoris tendon,and popliteus tendon is intact. Extensor mechanism: The quadriceps and patellar tendons are intact. Themedial and lateral retinacula are intact. Normal signal of Hoffa's fat pad. Bones, cartilage and joint: Small knee joint effusion. No acute fracture.No bone marrow replacing lesion. Chondral delamination overlying the median ridge of the patella.Full-thickness cartilage loss of the lateral patellar facet. Associated subchondralcystic change of the patella. Cartilage overlying the trochlea is intact. Cartilage of the medial compartment is intact. Cartilage of the lateral compartment is intact. Cartilage of the tibial-fibular joint is intact. Loculated joint fluid versus a synovial cyst along the posterior margin ofthe proximal tibial-fibular joint and along the popliteus myotendinousjunction measuring 1.6 x 1.4 x 1.1 cm. (Series 5, image 33 and 32 and series 8,image 23 and 24). Muscles: Normal bulk and signal of the visualized muscles. Neurovascular: Normal signal and caliber of the tibial and commonperoneal nerves. Other Extra-articular: Small Ruiz's cyst. No fluid distention of thepes anserine bursa. IMPRESSION 1. Multidirectional tear of the posterior horn of the medial meniscus. 2. Patellofemoral chondrosis. 3. 1.6 cm focus of loculated joint fluid versus a synovial cyst alongthe posterior margin of the proximal tibial-fibular joint and along thepopliteus myotendinous junction. 4. Small Ruiz's cyst. Thank you for letting us participate in the care of this patient. If youare a health care provider and have any questions regarding this report,please contact the number below. For patients who have questions please contactthe health home care nurse that requested your imaging first. Electronically signed by: Rocio Castro MD, [facility]([phone]), at 06/24/2023 8:41 AM Melvin Rizzo MD IM MRI ORDERABLES * XR Pre MRI Orbits (Generic) (06/23/2023 [...] who have questions please contact the health home care nurse that requested your imaging first. ? 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 COMPARISON: Radiograph 08/20/2021 FINDINGS: No radiopaque foreign bodies within the orbits. The paranasal sinuses and mastoid air cells are well aerated. No acute osseous findings. 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 Electronically signed by: Matthew Daigle MD, [facility]([phone]), at 06/23/2023 7:36 PM Melvin Rizzo MD IMG DX ORDERABLES documented in this encounter Visit Diagnoses Diagnosis Knee instability, left Left knee pain, unspecified chronicity Knee instability, left Knee instability, left documented in this encounter Care Teams Buyer Assistant Relationship Specialty Start Date End Date Tacho Jurado PA [address] [place] [address] PCP - General Internal Medicine 08/07/21 documented as of this encounter
--- OUTSIDE RECORDS SUMMARY | 2023-11-12 21:02 | XMS_ITS | Encounter Summary ---
[place] [address] Care Team Providers Care Creative Designer Name Role Phone Tacho Jurado Primary Care Provider [phone] Reason for Referral * Diagnostic Test (Routine) - Closed Specialty Diagnoses / Procedures Referred By Contac t Referred To Contact Radiology Diagnoses Knee instability, left Procedures MRI Knee wo Contrast Left (Generic) KimMehnaz PA [facility] [address] [place] [address] [place] [address] Referral ID Status Reason Start Date Expiration Date V isits Requested Visits Authorized [id number] Closed Specialty Service Requested 06/04/2023 12/04/2024 1 1 Reason for Visit * Diagnostic Test (Routine) - Closed Specialty Diagnoses / Procedures Referred By Contac t Referred To Contact Radiology Diagnoses Knee instability, left Procedures MRI Knee wo Contrast Left (Generic) Mehnaz Alvarez PA [facility] [address] [place] [address] [place] [address] Referral ID Status Reason Start Date Expiration Date V isits Requested Visits Authorized [id number] Closed Specialty Service Requested 06/04/2023 12/04/2024 1 1 Encounter Details Date Type Department Care Team (Latest Contact Info) Description 06/23/2023 7:25 PM EDT - 06/23/2023 11:59 PM EDT [place] [phone] Melvin Rizzo MD [facility] [address] [place] [address] Knee instability, left Discharge Disposition: Home Social [...] 12/22/2023 9:45 AM EDT Appointment XRay at [address] [place] [address] 12/22/2023 10:50 AM EDT Office [place] [address] Clinic, Dr Rizzo Team None documented as of this encounter Procedures Procedure Name Priority Date/Time Associated Diagnosis Comments MRI KNEE LEFT WO CONTRAST Routine 06/23/2023 8:24 PM EDT Knee instability, left documented in this encounter Results * MRI Knee wo [...] who have questions please contact the health school child care attendant that requested your imaging first. ? Narrative 06/24/2023 8:41 AM EDT EXAMINATION: MRI [...] patients who have questions please contactthe health school child care attendant that requested your imaging first. Melvin Rizzo MD IMG MRI ORDERABLES documented in this encounter Visit Diagnoses Diagnosis Knee instability, left documented in this encounter Care Teams Creative Designer Relationship Specialty Start Date End Date Tacho Jurado PA [address] [place] [address] PCP - General Internal Medicine 08/07/21 documented as of this encounter
--- OUTSIDE RECORDS SUMMARY | 2023-11-12 21:02 | XMS_ITS | Continuity of Care Document ---
Author Organization [place] - [facility] [employer] [facility] [facility], [facility] Address [address] [place] [address] Assessment No assessment recorded. Plan of Treatment Reminders Order Date Submit Date Provider Last Modified By Organization Details Last Modified Time Details Appointments Worker's Comp 20 2023 09:58A M Not available Not available Not available Follow Up 30 2023 02:00P M Not available Not available Not available Lab None recorded. Referral orthopedi c surgeon referral - Concern for potential partial Achilles injury. Clinicall y does not seem to have full rupture at this time. Is now in walking cast boot. This is a work injury. 2023 024 [facility], [address] [place] [address] [place], [address], 11/12/2023 15:10:51 Procedures None recorded. Surgeries None recorded. Imaging XR, foot, 3 or more view 2023 024 [facility], [address], [place], [address], 11/12/2023 13:07:33 Medication Orders None recorded. Patient TargetsNo targets recorded. Patient Instructions Encounter Date Encounter Id Patient Instructions Last Modified By Organization Details Last Modified Time 11/12/2023 [id number] 1. X-rays have been ordered and will take place to the hospital today. I typically get results 2-3 hours later and we will communicate these to you when they become available and discuss further management. [email or web address] Not available 11/12/2023 12:06:25 Reason for Referral Orthopedic Surgeon Referral for Pain of left knee joint concern for left knee internal derangement. Referring Physician: Tacho Jurado [facility], Encounter Date: 05/04/2023 Orthopedic Surgeon Referral for Pain in right foot Concern for potential partial Achilles injury. Clinically does not seem to have full rupture at this time. Is now in walking cast boot. This is a work injury. Referring Physician: Malika Quevedo [facility], Encounter Date: 11/12/2023 Results Created Date Observation Date Name Description Value Unit Range Abnormal Flag LastModifiedBy Organization Detail LastModifiedTime 11/12/19 24 11/12/2023 XR, foot, 3 or more view Patien t Name: Isaac Schaeffer Unit #: [id number] Loc: DI Orderi ng Provid er: Malika Quevedo Accoun t #: [id number] Status : PRE CLI Primar [...] ION DOSE DELIVE RED: Ordere d By: Malika Quevedo CC: ------ ------ ------ ------ ------ ------ [...] report in error, please notify us immedi ately at and return the origin al report to us at the addres s above. Thank- you. [email or web address] [facility] [address], [place], [address], 11/12/2023 14:00:35 11/12/19 24 11/12/2023 XR, foot, 3 or more view No observ ation record ed. [email or web address] [facility] [address], [place], [address], 11/12/2023 14:00:36 Result Notes None recorded. Problems Name Status Onset Date Resolution Date Notes Provider Name and Address Organization Details Recorded Time Cholesteatoma of left middle ear Completed 201801/29/2023 Problem Code: H71.92; Problem Code Type: ICD-10; Not Available [facility] 4 05:37:21 Obstructive sleep apnea syndrome Active 201802/21/2021 - Comments only - Tacho Jurado RPA - On CPAP. Also takes armodafinil in the morning. Prescribed by sleep clinic. 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 Long-term anticoagulati on recommended by hematology. He is tolerating well. Advised calling if he develops GERD symptoms. Distant history of GERD. Problem Code: D68.51; Problem Code Type: ICD-10; Not Available [facility] 3 05:19:47 Hyperlipidemi a Active 202002/21/2021 - Comments only - Tacho Jurado RPA - Tolerating statin well. We will check fasting lipids. New start this past summer. Problem Code: E78.5; Problem Code Type: ICD-10; Not Available [facility] 3 05:19:47 Foot pain Active 202002/21/2021 - Comments only - Tacho Jurado RPA - Bilaterally. Being followed by podiatry. Custom insoles made. Pes planus. Problem Code: M79.673; Problem Code Type: ICD-10; Not Available [facility] 3 05:19:48 Psoriasis Active 202002/21/2021 - Comments only - Tacho Jurado RPA - He manages with vabr-foj-elhb ter tar cream and bag balm. Tends to be a bit worse in the wintertime. Prefers not to use steroid. Problem Code: L40.9; Problem Code Type: ICD-10; Not Available [facility] 3 05:19:48 Adult health examination Active [...] his 2 kids. 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 He has completed his Covid vaccination series. Getting his booster in the next week. Tdap today. Has also had his flu shot. Problem Code: Z00.00; Problem Code Type: ICD-10; Not Available [facility] 3 05:19:48 Prediabetes Active 2020 Problem Code: R73.03; Problem Code Type: ICD-10; Not Available [facility] 3 05:19:48 Pain of left shoulder joint Active 202108/11/2021 - Comments only - Tacho Jurado RPA - [facility] Problem Code: M25.512; Problem Code Type: ICD-10; Not Available [facility] 3 05:19:48 Chest pain Completed 202108/26/2021 Problem Code: R07.89; Problem Code Type: ICD-10; Not Available [facility] 3 05:19:48 Injury caused by electrical exposure [...] T75.4xxD; Problem Code Type: ICD-10; Not Available [facility] 3 05:19:48 Pain of right wrist Completed 202101/29/2023 Problem Code: M25.531; Problem Code Type: ICD-10; Not Available [facility] 4 05:37:21 Exposure to communicable disease Completed 201902/21/2021 Problem Code: Z20.828; Problem Code Type: ICD-10; Not Available [facility] 3 05:19:49 Ophthalmic examination and evaluation Completed 201802/21/2021 Problem Code: Z01.00; Problem Code Type: ICD-10; Not Available [facility] 3 05:19:49 Adult health examination Completed 201802/21/2021 Problem Code: Z00.00; Problem Code Type: ICD-10; Not Available [facility] 3 05:19:49 Nasal congestion Completed 201902/21/2021 Problem Code: R09.81; Problem Code Type: ICD-10; Not Available [facility] 3 05:19:49 Sleep apnea Completed 201802/21/2021 Problem Code: G47.30; Problem Code Type: ICD-10; Not Available [facility] 3 05:19:49 Fatigue Completed 201802/21/2021 Problem Code: R53.83; Problem Code Type: ICD-10; Not Available [facility] 3 05:19:49 Chest pain Completed 201802/21/2021 Problem Code: R07.89; Problem Code Type: ICD-10; Not Available [facility] 3 05:19:50 Bilateral hearing loss Completed 201802/21/2021 Problem Code: H91.93; Problem Code Type: ICD-10; Not Available [facility] 3 05:19:50 Low back pain Completed 201802/21/2021 Problem Code: M54.5; Problem Code Type: ICD-10; Not Available [facility] 3 05:19:50 Achilles tendinitis Completed 202002/21/2021 Problem Code: M76.60; Problem Code Type: ICD-10; Not Available [facility] 3 05:19:50 Exposure to sexually transmissible disorder Completed 201812/15/2018 Problem Code: Z20.2; Problem Code Type: ICD-10; Not Available [facility] 3 05:19:50 Acute pharyngitis Completed 201812/27/2018 Problem Code: J02.9; Problem Code Type: ICD-10; Not Available [facility] 3 05:19:50 Neoplasm of digestive system Completed 201802/21/2021 Problem Code: D49.0; Problem Code Type: ICD-10; Not Available [facility] 3 05:19:50 Plantar fascial fibromatosis Completed 201902/21/2021 Problem Code: M72.2; Problem Code Type: ICD-10; Not Available [facility] 3 05:19:51 Counseling Completed 201812/15/2018 Problem Code: Z71.89; Problem Code Type: ICD-10; Not Available [facility] 3 05:19:51 Pain of left knee joint Completed 202202/09/2023 Problem Code: M25.562; Problem Code Type: ICD-10; [address], [place] [address] , [facility] 4 15:41:33 Generalized rash Active [address], [place] [address] , [facility] 4 14:56:31 Pain of left knee joint Active 2023 Problem Code: M25.562; Problem Code Type: ICD-10; DAVID [address] Dr, [address] 4 15:41:32 Pain in left foot Active [address], [place] [address] , [facility] 4 12:04:41 Pain in right foot Active [address], [place] [address] , [facility] 4 12:11:03 Problem Notes None recorded. Medical Equipment None Reported. Allergies Allergen ID Allergen Name Allergen Category Reaction Reaction Severity Criticality Documentation Date Start Date Code Code System Note Provider Name and Address Organization Details Recorded Time 34217 codeine medicatio n Not available Not available Not available 01/29/20232018 2670 RxNorm Aller gyCod e: '0040 44423 32'; Aller gyNam e: 'CODE INE'; Aller gyCon ceptT ype: 'NDC' ; Not Available [facility] 3 16:07:16 Medications Name Sig Start Date Stop [...] mouth once a day 01/29 completed 01/30/20 23 RX by [facility] 4 day course Not Available Not Available [...] Updated DateTime 4 171.5 cm 44.4 kg/m2 791924. 6 g 98.5 [degF] 96 % 96 % 59 /min 17 /min 116 mm[Hg] 80 mm[Hg] Ayala Reyez MA [facility] 10:54:21 Social History Question Answer Notes LastModified by Organizat ion Details LastModified Time Tobacco Smoking Status Never Smoker REINA ALMONTE MA null, [facility] 06/25/2023 14:35:52 What Was The Date Of Your Most Recent Tobacco Screening? 11/12/2023 [email or web address] Information not available 11/12/2023 Has Tobacco Cessation Counseling Been Provided? Yes [email or web address] Information not available 11/12/2023 On What Date Was Tobacco Cessation Counseling Provided? 11/12/2023 Information not available 11/12/2023 Do You Or Have You Ever Used Any Other Forms Of Tobacco Or Nicotine? No Information not available 06/25/2023 Sex: Male Functional Status None recorded. Mental Status None recorded. Family History Relationship Description Onset Age of this Age Resolved Age Notes Notes:*Problem: father decea sed suicide 2003, etoh. mother - addiction Medical History No medical history recorded. Immunizations Vaccine Type Date Status Provider Name and Address Organization Details Recorded Time Tdap 02/21/2021 completed Not Available [facility] 06:09:20 SARS-COV-2 (COVID-19) vaccine, UNSPECIFIED 06/22/2020 completed Not Available [facility] 01/29/2023 06:09:20 SARS-COV-2 (COVID-19) vaccine, UNSPECIFIED 07/22/2020 completed Not Available [facility] 01/29/2023 06:09:20 SARS-COV-2 (COVID-19) vaccine, UNSPECIFIED 02/22/2022 completed Not Available [facility] 01/29/2023 06:09:20 influenza, unspecified formulation 01/23/2021 completed Not Available [facility] 01/29/2023 06:09:20 Influenza, split virus, quadrivalent, PF 01/29/2023 completed Not Available [facility] 04/02/2023 05:31:33 Past Encounters Encounter ID Performer Location Encounter Start Date Encounter Closed Date Diagnosis/Indication Diagnosis SNOMED-CT Code [id number] MALIKA QUEVEDO PA-C [address] [place] [address] 11/12/2023 10:01:08 11/12/2023 12:09:07 Pain in right foot [id number] Health Concerns Section Related Observation LastModified by Organization Detai ls LastModified Time None Recorded Concern Status LastModified by Organization Details LastModified Time None Recorded Payers Encounter Date Sequence Insurance Name Policy Number Policy Sun Covered Member ID Sun Member ID Guarantor Name 11/12/2023 1 [place] [employer] (EPO) [id number] Isaac Le [id number] Isaac Villanueva Mimi Notes Date Note Type Note Provider Name and Address Organization Details Recorded Time 11/12/2023 text/html HPI Notes: Isaac is a 43-year-old male that sustained injury to his right ankle yesterday while at work. 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 MALIKA QUEVEDO PA-C [address], [place], [address], [facility]. 11/12/2023 15:05:54
--- OUTSIDE RECORDS SUMMARY | 2023-11-12 21:02 | XMS_ITS | Encounter Summary ---
Author Organization [facility] [place] [address] Care Team Providers Care Imagery Analyst Name Role Phone Tacho Jurado Primary Care Provider [phone] Encounter Details Date Type Department Care Team (Latest Contact Info) Description 06/23/2023 Travel Social History Tobacco Use Types Packs/Day [...] 12/22/2023 9:45 AM EDT Appointment XRay at [address] [place] [address] 12/22/2023 10:50 AM EDT Office Visit Orthopaedics at [facility] [place] [address] Clinic, Dr Rizzo Team None documented as of this encounter Visit Diagnoses Not on filedocumented in this encounter Care Teams Imagery Analyst Relationship Specialty Start Date End Date Tacho Jurado PA [address] [place], [place] [phone] PCP - General Internal Medicine 08/07/21 documented as of this encounter
--- OUTSIDE RECORDS SUMMARY | 2023-11-12 21:02 | XMS_ITS | Encounter Summary ---
Author Organization [facility] [place] [address] Care Team Providers Care Yard Foreman Name Role Phone Tacho Jurado Primary Care Provider Encounter Details Date Type Department Care Team (Latest Contact Info) Description 12/02/2022 Travel Social History Tobacco Use Types Packs/Day [...] 12/22/2023 9:45 AM EDT Appointment XRay at [address] [place] [address] 12/22/2023 10:50 AM EDT Office Visit Orthopaedics at [facility] [place] [address] Clinic, Dr Rizzo Team None documented as of this encounter Visit Diagnoses Not on filedocumented in this encounter Care Teams Yard Foreman Relationship Specialty Start Date End Date Tacho Jurado PA [address] [place], [place] [phone] PCP - General Internal Medicine 08/07/21 documented as of this encounter
--- OUTSIDE RECORDS SUMMARY | 2023-11-12 21:02 | XMS_ITS | Encounter Summary ---
Author Organization [facility] [place] [address] Care Team Providers Care Blood Bank Laboratory Professional Name Role Phone Tacho Jurado Primary Care Provider Encounter Details Date Type Department Care Team (Latest Contact Info) Description 03/04/2023 Travel Social History Tobacco Use Types Packs/Day [...] 12/22/2023 9:45 AM EDT Appointment XRay at [address] [place] [address] 12/22/2023 10:50 AM EDT Office Visit Orthopaedics at [facility] [place] [address] Clinic, Dr Rizzo Team None documented as of this encounter Visit Diagnoses Not on filedocumented in this encounter Care Teams Blood Bank Laboratory Professional Relationship Specialty Start Date End Date Tacho Jurado PA [address] [place], [place] [phone] PCP - General Internal Medicine 08/07/21 documented as of this encounter
--- OUTSIDE RECORDS SUMMARY | 2023-11-12 21:02 | XMS_ITS | Encounter Summary ---
Author Organization [facility] [place] [address] Care Team Providers Care Aluminum Shingle Roofer Name Role Phone Tacho Jurado Primary Care Provider [phone] Encounter Details Date Type Department Care Team (Latest Contact Info) Description 06/04/2023 Travel Social History Tobacco Use Types Packs/Day [...] 12/22/2023 9:45 AM EDT Appointment XRay at [address] [place] [address] 12/22/2023 10:50 AM EDT Office Visit Orthopaedics at [facility] [place] [address] Clinic, [address] Rizzo Team None documented as of this encounter Visit Diagnoses Not on filedocumented in this encounter Care Teams Aluminum Shingle Roofer Relationship Specialty Start Date End Date Tacho Jurado PA [address] [place], [place] [phone] PCP - General Internal Medicine 08/07/21 documented as of this encounter
--- OUTSIDE RECORDS SUMMARY | 2023-11-12 21:02 | XMS_ITS | Encounter Summary ---
Author Organization [facility] [address] [address] Care Team Providers Care Ice Skating Teacher Name Role Phone Tacho Jurado Primary Care Provider [phone] Encounter Details Date Type Department Care Team (Late st Contact Info) Description 12/05/2021 Telephone Occupational Therapy at [facility] [address] [place] [address] Jolie Proctor Social History Tobacco Use Types Packs/Day Years [...] 9:45 AM EDT Appointment XRay at [address] [place] [address] 12/22/2023 10:50 AM EDT Office Visit Orthopaedics at [facility] [place] [address] Clinic, Dr Rizzo Team None documented as of this encounter Visit Diagnoses Not on filedocumented in this encounter Care Teams Ice Skating Teacher Relationship Specialty Start Date End Date Tacho Jurado PA [address] [place] [phone] PCP - General Internal Medicine 08/07/21 documented as of this encounter
--- OUTSIDE RECORDS SUMMARY | 2023-11-12 21:02 | XMS_ITS | Encounter Summary ---
Author Organization [facility] [place] [address] Care Team Providers Care Support Services Specialist Name Role Phone Tacho Jurado Primary Care Provider [phone] Encounter Details Date Type Department Care Team (Late st Contact Info) Description 11/14/2021 Telephone Physical Therapy at [facility] [address] Rocio Glez Social History Tobacco Use Types Packs/Day Years [...] Telephone Encounter - Rocio Glez - 11/14/2021 9:13 AM EDT External call to patients insurance carrier- [employer] at [phone]. For provider eligibility telephone line the insurance carrier stated to call . documented in this encounter Plan of Treatment Upcoming Encounters Date Type Department Care Team (Late st Contact Info) Description 12/22/2023 9:45 AM EDT Appointment XRay at [address] [place] [address] 12/22/2023 10:50 AM EDT Office [place] [address] Clinic, Dr Rizzo Team None documented as of this encounter Visit Diagnoses Not on filedocumented in this encounter Care Teams Support Services Specialist Relationship Specialty Start Date End Date Tacho Jurado PA [address] [place] [address] PCP - General Internal Medicine 08/07/21 documented as of this encounter
--- OUTSIDE RECORDS SUMMARY | 2023-11-12 21:02 | XMS_ITS | Encounter Summary ---
Author Organization [facility] [place] [address] Care Team Providers Care Senior Electrical Project Manager Name Role Phone Tacho Jurado Primary Care Provider [phone] Reason for Visit * Reason Comments Injections NXR L KNEE SYNVIS C INJECTION * High Dollar Medication (Routine) - Closed Specialty Diagnoses / Procedures Referred By Jame navarro Referred To Contact Orthopaedics Diagnoses Primary osteoarthritis of left knee Procedures Synvisc One Authorization Request (IN CLINIC) TC SYNVISC/SYNVISC-ONE, 1MG, INTRA-ARTICULAR INJECTION Kim, MARIBEL Nichols [facility] [place] [address] [facility] [address] [place] [phone] Referral ID Status Reason Start Date Expiration Date V isits Requested Visits Authorized [id number] Closed Consult, Test & Treat 07/08/2023 07/07/2024 1 1 Encounter Details Date Type Department Care Team (Latest Contact Info) Description 07/29/2023 3:30 PM EDT Clinical [place] [address] [address]Mehnaz PA [facility] [place] [address] Primary osteoarthritis of left knee Social History Tobacco Use Types Packs/Day Years [...] as of this encounter Progress Notes * Kim, MARIBEL Nichols - 07/29/2023 3:30 PM EDT Isaac Le is a 42 y.o. male who presents to clinic today for procedure only visit, left knee Synvisc One injection for left knee DJD. Has not tried visco before. He reports increasing pain and would like to proceed with injection today. Denies interval change in health. Denies current infectious symptoms. After discussion, would like to proceed. See procedure note below. left knee with mild effusion. No warmth, lesions, drainage. ROM 0-105. Stable to varus, valgus and AP stress. Calf is supple, nontender. Foot is warm, well perfused. Sensation intact to light touch distally. PROCEDURE NOTE: left knee Synvisc One Injection A time-out was performed and the left knee was confirmed to be the site of injection. The patient was confirmed to have no allergies to betadine, local anesthetics, or viscosupplementation. The patient was counseled about the potential risks of the procedure, including infection, bleeding and incomplete relief of symptoms. The patient provided consent. The skin was prepped widely over the left knee. Then, using sterile technique, a solution consisting of 6cc Synvisc One (48 mg), was injected into the left knee. The needle was felt to slide into thecapsule and the mixture flowed freely. The skin was cleaned and a Band-Aid was applied. The patienttolerated the procedure well. He will monitor pain in the upcoming weeks to determine efficacy of the injection. We discussed that if injections are effective he can have up to 2 per joint per year. We will need to obtain insurance approval each time. He will return to clinic on an as-needed basis if symptoms persist, progress,he would like to proceed with repeat corticosteroid or viscosupplement injection, he would like to discuss further management strategies for knee osteoarthritis. Questions were solicited and answered. He agrees with this plan. MARIBEL Rivas documented in this encounter Plan of Treatment Upcoming Encounters Date Type Department Care Team (Late st Contact Info) Description 12/22/2023 9:45 AM EDT Appointment XRay at [address] [place]IS perez [address] 12/22/2023 10:50 AM EDT Office Visit Orthopaedics at [facility] [place] [address] Clinic, Dr Rizzo Team None documented as of this encounter Visit Diagnoses Diagnosis Primary osteoarthritis of left knee Primary localized osteoarthrosis, lower leg documented in this encounter Administered Medications Inactive Administered Medications - up to 3 most recent administrations Medication Order MAR Action Action Date Dose Rate Site hylan g-f 20 (Synvisc-One) (8 mg/mL) 6 mL syringe injection 48 mg 48 mg, Intra-articular, ONCE, On Vilma 07/29/23 at 1600, 1 dose Given 07/29/2023 3:42 PM EDT 48 mg documented in this encounter Care Teams Senior Electrical Project Manager Relationship Specialty Start Date End Date Tacho Jurado PA [address] [place] [address] PCP - General Internal Medicine 08/07/21 documented as of this encounter
--- OUTSIDE RECORDS SUMMARY | 2023-11-12 21:02 | XMS_ITS | Encounter Summary ---
Author Organization [facility] Address [facility] [place] [address] Care Team Providers Care Floor Finisher Name Role Phone Tacho Jurado Primary Care Provider [phone] Reason for Visit * Physical Therapy (Routine) - Closed Specialty Diagnoses / Procedures Referred By Contac t Referred To Contact Physical Therapy Diagnoses Tear of left rotator cuff, unspecified tear extent, unspecified whether traumatic Left shoulder pain, unspecified chronicity Petra Rutherford MD [facility] [place] [address] [address] [place] [address] Referral ID Status Reason Start Date Expiration Date V isits Requested Visits Authorized [id number] Closed Evaluate and Treat 10/02/2021 10/02/2022 30 30 Encounter Details Date Type Department Care Team (Late st Contact Info) Description 11/12/2021 8:30 AM EDT Office Visit Physical Therapy at [facility] [address] [place] [phone] Graham Huynh, PT Chronic pain in left [...] - Therapy - Graham Huynh, PT - 11/12/2021 8:30 AM EDT Physical Therapy Treatment Note Date of Exam/First Treatment: 11/12/2021 Referring Provider: Petra Rutherford MD [facility] Orthopaedic Surgery [place] [address] Diagnosis and Pertinent Co-Morbidities affecting Plan of Care: ICD-10-CM 1. Chronic pain in left shoulder M25.512 G89.29 Date of onset/surgery: July 2021 Procedure: NA Precautions: NA Subjective Pt reports that his shoulder has been doing fairly well. He has been travelling a lot this week butshoulder is doing well. Able to lift and carry more. He rates his pain symptoms today as 1/10. Objective CPT Charges: Therex: Strength/Endurance/ROM (30565) 45 min - Pt shoulder AROM continues [...] 12/22/2023 9:45 AM EDT Appointment XRay at [address] [place] [address] 12/22/2023 10:50 AM EDT [place] [address] Clinic, Dr Rizzo Team None documented as of this encounter Visit Diagnoses Diagnosis Chronic pain in left shoulder Pain in joint, shoulder region documented in this encounter Care Teams Floor Finisher Relationship Specialty Start Date End Date Tacho Jurado PA [address] [place] [address] PCP - General Internal Medicine 08/07/21 documented as of this encounter
--- OUTSIDE RECORDS SUMMARY | 2023-11-12 21:02 | XMS_ITS | Encounter Summary ---
Author Organization [facility] Prem [address] [address] Care Team Providers Care Non Destructive Evaluation Specialist Name Role Phone Tacho Jurado Primary Care Provider Encounter Details Date Type Department Care Team (Late st Contact Info) Description 01/29/2023 Ancillary Procedure Radiology Library [place] [address] Tacho Jurado PA [address] [place], [place] [id number] Social History Tobacco Use Types Packs/Day Years [...] 12/22/2023 9:45 AM EDT Appointment XRay at [address] [place] [address] 12/22/2023 10:50 AM EDT Office Visit Orthopaedics [place] [facility] [place] [address] Clinic, Dr Rizzo Team None documented as of this encounter Procedures Procedure Name Priority Date/Time Associated Diagnosis Comments FILM LIBRARY STORAGE ONLY DX KNEE Routine 01/29/2023 12:00 AM EST documented in this encounter Results * Film Library- Storage Only DX Knee (01/29/2023 12:00 AM EST) Narrative [facility] - 05/06/2023 7:53 PM EST This exam is auto-finalizing. It's purpose is for storage only. Tacho LÓPEZ Dionna FILM LIBRARY ORD ERABLES Performing Organization Address City/State/[facility] Co de Phone Number [place], [place] documented in this encounter Visit Diagnoses Not on filedocumented in this encounter Care Teams Non Destructive Evaluation Specialist Relationship Specialty Start Date End Date Tacho Jurado PA [address] [place] [address] PCP - General Internal Medicine 08/07/21 documented as of this encounter
--- OUTSIDE RECORDS SUMMARY | 2023-11-12 21:02 | XMS_ITS | Encounter Summary ---
Author Organization [facility] Address [facility] [place] [address] Care Team Providers Care Sample Carrier Name Role Phone Tacho Jurado Primary Care Provider [phone] Reason for Visit * Physical Therapy (Routine) - Authorized Specialty Diagnoses / Procedures Referred By Jame t Referred To Contact Physical Therapy Diagnoses Bilateral plantar fasciitis Bilateral pes planus Bilateral foot pain Achilles tendinosis of both lower extremities Orthotics Evangelist Cuevas, DPMike [facility] [place] [phone] Madhuri Mckinney, PT [facility] PHYSICAL [facility]IC[facility] & [facility] [place] [phone] Referral ID Status Reason Start Date Expiration Date Visits Requested Visits Authorized [id number] Authorized Evaluate and Treat 12/02/2022 12/02/2023 30 30 Encounter Details Date Type Department Care Team (Late st Contact Info) Description 03/04/2023 10:00 AM EST Office Visit Physical Therapy at [facility] [address] [place] [address] Madhuri Mckinney, PT [facility] [place] [phone] Bilateral plantar fasciitis; Bilateral pes planus; Bilateral [...] as of this encounter Miscellaneous Notes * Initial Evaluation - Madhuri Mckinney, PT - 03/04/2023 10:00 AM EST Orthosis Initial Evaluation Note: Outpatient Date of Exam/First Treatment: 03/04/2023 Referring Provider: [place] [address] Diagnosis and Pertinent Co-Morbidities affecting Plan of Care: ICD-10-CM 1. Bilateral plantar fasciitis M72.2 2. Bilateral pes planus M21.41 M21.42 3. Bilateral foot pain M79.671 M79.672 4. Achilles tendinosis of both lower extremities M67.88 Primary Insurance: Payor: [employer] [place] / Plan[place] EXCHANGE / Product Type: *No Product type* / CURRENT HISTORY / PATIENT INFORMATION: per referring provider Isaac Le is a very pleasant 42 [...] process of getting a new set. 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 He is wearing a decent pair of boots but they are somewhat flexible. He does not typically have significant support when he is at home. He says he feels best when he is able to stretch his calf muscles consistently. No trauma to either foot. It is my pleasure seeing him today for this evaluation. Of note, he lives in [place] but works in this area as an school psychology professor. We discussed different treatment options today. I [...] as he has wide flatfoot structure makes dwkz-lkj-[id number] devices very difficult. We discussed all of [...] next 3 to 4 weeks or so. Former orthotics were hard plastic to metatarsals. 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 Functional Limitations: [x] See Prior level of function for limitations Pain: at best: 4/10; at worst: 9/10 (within the last 2 weeks) Participation in sports (types): n/a Type of Participation: n/a Biometrics: Height: Ht Readings from Last 1 Encounters: 10/02/21 167.6 cm (5' 5.98) Weight: Wt Readings from Last 1 Encounters: 10/02/21 131.5 kg (290 lb) Shoe type: Lace-up Keen hiker/work boot, Vans Shoe size: 11 1/2 EE Men x Women Children Heel height: 1 X 2 3 BIOMECHANICAL EXAMINATION: Foot Morphology off-WB: R ARCH [] High arch [] Medium arch [x] Low arch L ARCH [] High arch [] Medium arch [x] Low arch Comments: Foot Morphology WB: R ARCH [] High arch [] Medium arch [x] Low arch L ARCH [] High arch [] Medium arch [x] Low arch Comments: Foot Motions: R FOOT [] Loose [] Tight / Rigid [x] Within Normal Limits L FOOT [] Loose [] Tight / Rigid [x] Within Normal Limits Comments: Ankle Dorsiflexion: (PROM) R FOOT (deg) [] 10 or More [] 7-8 [x] 5-6 [] 3-4 or Less L FOOT (deg) [] 10 or More [] 7-8 [x] 5-6 [] 3-4 or Less Comments: Hallux Dorsiflexion: (PROM) R FOOT (deg) [x] 65 [] 45 [] 25 [] None L FOOT (deg) [x] 65 [] 45 [] 25 [] None Comments: First Metatarsal Segment: R 1st Ray [] Flexible [x] Semi-Rigid [] Rigid L 1st Ray (deg) [] Flexible [x] Semi-Rigid [] Rigid Comments: First Ray Position: R 1st Ray [] Normal [x] Plantarflexed [] Dorsiflexed L 1st Ray (deg) [] Normal [x] Plantarflexed [] Dorsiflexed Comments: Leg Length Discrepancy: Apparent: (Umb - Med Mal) Visually Equal Leg Length on both sides [] Comments: 1/8 to 1/4 inch shorter on R--will just trial a lift on own for now Callus Location: Right Severe great toe pinch, midfoot diffuse at 4th/5th, heel Left same Gait Pattern: Right [] In-Toe [x] Out-Toe [] Straight Left [] In-Toe [x] Out-Toe [] Straight Comments: MEASUREMENTS: Range of Motion (ROM) RIGHT ROM (deg) LEFT ROM (deg) Neutral Subtalar Joint: (varus) 0-2 0-3 Forefoot Deviation Varus Neutral Valgus 0-5 [x] [] [] 0-10 [x] [] [] Lower Tibia Varum Vertical Valgum 0-0 [] [x] [] 0-0 [] [x] [] Calcaneal Stance Position (full weight bearing) Varum Vertical Valgum 0-2 [] [] [x] 0-2 [] [] [x] TREATMENT / RECOMMENDATIONS: [x] Discussed various types of orthoses and recommend [id number] with 2-5 bar post, 04/06 spenco topcoatto mets. [x] Performed slipper type casting to bilateral feet in prone subtalar joint neutral. 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 Co-morbidities that may affect outcomes include: 1. Bilateral plantar fasciitis 2. Bilateral pes planus 3. Bilateral foot pain 4. Achilles tendinosis of both lower extremities Clinical decision making of moderate complexity using standardized patient assessment instrument and measurable assessment of functional outcome. 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 Decreased pain to 1/10 best and 5/10 worst on VAS during ADLs. Improved global rating of change to at least quite a bit better. PLAN Send off slipper casts to [facility] and call patient when the orthotics arrive. Informed Consent: [x] The patient consented to the physical therapy evaluation. [x] The patient agrees to and understands the physical therapy treatment plan and goals. [x] Patient agreed with this plan including understanding that payment will be made in full prior to ordering the orthosis. Interventions completed today: Evaluation including biomechanical assessment and orthotic casting Charges: [] Evaluation LOW Complexity (60149), [x] Evaluation MODERATE Complexity (64478) [] Evaluation HIGH Complexity (43615) [x] Orthotic Management & Training (63392) 30 min Total Treatment time: 90 minutes Total Timed Code Treatment: 30 minutes MADHURI MCKINNEY PT documented in this encounter Plan of Treatment Upcoming Encounters Date Type Department Care Team (Late st Contact Info) Description 12/22/2023 9:45 AM EDT Appointment XRay at [address] [place] [phone] 12/22/2023 10:50 AM EDT Office Visit [facility] at [facility] [place] [address] Clinic, [address] Rizzo Team None Scheduled Referrals [...] extremities documented in this encounter Care Teams Sample Carrier Relationship Specialty Start Date End Date Tacho Jurado PA [address] [facility] [place] [address] PCP - General Internal Medicine 08/07/21 documented as of this encounter
--- OUTSIDE RECORDS SUMMARY | 2023-11-12 21:02 | XMS_ITS | Encounter Summary ---
Author Organization [facility] [place] [address] Care Team Providers Care Manager Non Profit Name Role Phone Tacho Jurado Primary Care Provider [phone] Reason for Referral * High Dollar Medication (Routine) - Closed Specialty Diagnoses / Procedures Referred By Contac t Referred To Contact Orthopaedics Diagnoses Primary osteoarthritis of left knee Procedures Synvisc One Authorization Request (IN CLINIC) TC SYNVISC/SYNVISC-ONE, 1MG, INTRA-ARTICULAR INJECTION Kim, MARIBEL Nichols [facility] [place] [address] [facility] [address] [place] [phone] Referral ID Status Reason Start Date Expiration Date V isits Requested Visits Authorized [id number] Closed Consult, Test & Treat 07/08/2023 07/07/2024 1 1 Encounter Details Date Type Department Care Team (Latest Contact Info) Description 07/08/2023 10:00 AM EDT TH Visit (TeleHealth) [place] [address] Kim, MARIBEL Nichols [facility] [place] [address] Primary osteoarthritis of left knee [...] as of this encounter Progress Notes * KimMehnaz PA - 07/08/2023 10:00 AM EDT Spoke to patient regarding his knee. Injection was helpful initially but has started to wear off. Discussed MRI. Significant PF OA with a medial meniscal injury. Discussed challenges in treating these two different types of pathology. After discussion, recommend he continue PT/HEP for patellar tracking. Trial visco. Request placed. Consider hinged knee sleeve vs patellar tracking brace. He will return to clinic for injection. documented in this encounter Plan of Treatment Upcoming Encounters Date Type Department Care Team (Late st Contact Info) Description 12/22/2023 9:45 AM EDT Appointment XRay at [address] [place] [address] 12/22/2023 10:50 AM EDT Office [place] [address] Clinic, Dr Rizzo Team None documented as of this encounter Visit Diagnoses Diagnosis Primary osteoarthritis of left knee Primary localized osteoarthrosis, lower leg documented in this encounter Care Teams Manager Non Profit Relationship Specialty Start Date End Date Tacho Jurado PA [address] [place] [address] PCP - General Internal Medicine 08/07/21 documented as of this encounter
--- OUTSIDE RECORDS SUMMARY | 2023-11-12 21:02 | XMS_ITS | Encounter Summary ---
Author Organization [facility] Address [address] [place] [address] Care Team Providers Care Recorder Helper Seismograph Name Role Phone Joaquín Hernandez DNP Primary Care Provider [phone] Encounter Details Date Type Department Care Team (Late st Contact Info) Description 01/13/[address] [address] Joaquín Hernandez, ARSLAN [address] [place] [phone] Social History Tobacco Use Types Packs/Day Years Used Date Smoking Tobacco: Never Assessed Sex and Gender Information Value Date Recorded Sex Assigned at Not on file Gender Identity Not on file Sexual Orientation Not on file documented as of this encounter Plan of Treatment Not on file documented as of this encounter Visit Diagnoses Not on filedocumented in this encounter Historical Medications * This list may reflect changes made after this encounter. Medication Sig Dispensed Refills Start Date End Date albuterol (PROAIR HFA) 90 mcg/actuation inhaler Inhale 180 mcg as directed every 4 hours. added in this encounter Care Teams Recorder Helper Seismograph Relationship Specialty Start Date End Date Joaquín Hernandez DNP [address] [facility] [address] PCP - General 12/19/18 documented as of this encounter
--- OUTSIDE RECORDS SUMMARY | 2023-11-12 21:02 | XMS_ITS | Encounter Summary ---
Author Organization [facility] Address [address] [place] [address] Care Team Providers Care Specialty Cook Name Role Phone Joaquín Hernandez DNP Primary Care Provider [phone] Reason for Visit * Reason Comments Decreased Hearing asking people to rep eat themselves. both ears. pcp noticed something on left ear drum. some tenderness in right ear. was sick for some time and noticed blood in right ear. denies tinnitus. * Referral (Routine) - Closed Specialty Diagnoses / Procedures Referred By Jame navarro Referred To Contact Otolaryngology Diagnoses Decreased hearing, bilateral Joaquín Hernandez, DNP [address] [place] [address] Berhane Soriano MD [address] [place] [phone] Referral ID Status Reason Start Date Expiration Date Visits Re quested Visits Authorized [id number] Closed 1 1 Encounter Details Date Type Department Care Team (Late st Contact Info) Description 01/17/2019 9:50 EDT Office Visit [facility] ENT - [address] [address] Berhane Soriano MD [address] [place] [phone] Conductive hearing loss, middle ear (Primary Dx) Social History Tobacco Use Types Packs/Day Years Used Date Smoking Tobacco: Never Assessed Sex and Gender Information Value Date Recorded Sex Assigned at Not on file Gender Identity Not on file Sexual Orientation Not on file documented as of this encounter Last Filed Vital Signs Vital Sign Reading Time Taken Comments Blood Pressure 104/59 01/17/2019948 EDT Pulse 95 01/17/2019948 EDT Temperature - - Respiratory Rate - - Oxygen Saturation - - Inhaled Oxygen Concentration - - Weight 131.5 kg (290 lb) 01/17/2019948 EDT Height 170.2 cm (5' 7) 01/17/2019948 EDT Body Mass Index 45.42 01/17/2019948 EDT documented in this encounter Progress Notes * Berhane Soriano MD - 01/17/2019949 EDT This is a consult from Joaquín Herring for evaluation of hearing loss. HISTORY OF PRESENT ILLNESS: This is a 38-year-old male with a recent hearing loss where people havebeen having to repeat themselves. On recent examination, the eardrums had an abnormal appearance, and ENT was consulted to rule out possible cholesteatoma. The patient denies any pain, drainage, tinnitus, vertigo or other ear symptoms. Did have a prior history of ear infections as a child. PAST MEDICAL HISTORY: Current medications include ibuprofen. He has drug allergies to CODEINE and food allergies to BANANA. His past medical history is significant for sleep apnea. PRIOR SURGERIES: Include tonsillectomy, tympanostomy, PE tube placement and UPPP. FAMILY HISTORY: Negative for anesthesia problems. SOCIAL HISTORY: Significant for marijuana smoking. REVIEW OF SYSTEMS: Significant for wheezing, dizziness, headaches, back pain, muscle pain, congestion, hearing loss. Otherwise, negative for a complete review of all systems. PHYSICAL EXAMINATION: General: Well-developed, well-nourished, alert, oriented, cooperative adult male in no acute distress. Normal voice. Vital Signs: Height 67 inches, weight 290, blood pressure 104/59, pulse 95. Pain level of 2. The face is normal without lesions. Facial strength is symmetric. Eye exam is normal. Ears: External ears are normal. Canals are clear. The tympanic membranes are normal. Normal binocular otomicroscopy. Mild tympanosclerosis posteriorly on the left. An audiogram was performed, which reveals a mild bilateral conductive hearing loss. SRTs are 20 dB in the right, 15 dB in the left. Excellent word discrimination, normal impedance. Nose: Nasal dorsum is midline, the airway is patent. Oral cavity and posterior pharynx are clear. The patient is status post UPPP. Neck:No pathologic lymphadenopathy. Trachea is midline. Thyroid is normal. Chest is clear to auscultation. Heart: Regular rate and rhythm. IMPRESSION: Mild bilateral conductive hearing loss, unclear etiology. PLAN: The patient is to wear hearing protection during noise exposure, follow up with repeat audiogram in 1 year or p.r.n. documented in this encounter Plan of Treatment Not on file documented as of this encounter Procedures Procedure Name Priority Date/Time Associated Diagnosis Comments PROCEDURE REPORTS - SCANNED 01/18/2019 9:04 EDT documented in this encounter Results * PROCEDURE REPORTS - SCANNED (01/18/2019 9:04 EDT) 01/18/2019 9:04 EDT Scan 2 Package Winder PROCEDURE/MINOR ELVA GICAL ORDERABLES documented in this encounter Visit Diagnoses Diagnosis Conductive hearing loss, middle ear- Primary documented in this encounter Historical Medications * This list may reflect changes made after this encounter. Medication Sig Dispensed Refills Start Date End Date ibuprofen (MOTRIN) 800 mg tablet Take 800 mg by mouth 3 times daily. added in this encounter Care Teams Specialty Cook Relationship Specialty Start Date End Date Joaquín Hernandez, ARSLAN [facility] [place] [address] [place] [phone] PCP - General 12/19/18 documented as of this encounter
--- OUTSIDE RECORDS SUMMARY | 2023-11-12 21:02 | XMS_ITS | Encounter Summary ---
Author Organization [facility] Address [facility] [place] [address] Care Team Providers Care Professor Of Oceanography Name Role Phone Tacho Jurado Primary Care Provider [phone] Encounter Details Date Type Department Care Team (Late st Contact Info) Description 06/04/2023 2:00 PM EDT Office Visit [place] [address] Bette Issa, PT Left knee pain, unspecified chronicity Social History [...] encounter Miscellaneous Notes * Initial Evaluation - Bette Issa, PT - 06/04/2023 2:00 PM EDT Images from the original note were not included. PHYSICAL THERAPY INITIAL EVALUATION Date of Exam/First Treatment: 06/04/2023 Referring Provider: MARIBEL Rivas [facility] [place] [address] Diagnosis: ICD-10-CM 1. Left knee pain, unspecified chronicity M25.562 Date of onset: January 2023 HISTORY History of current problem: Isaac Le is a 42 y.o. male referred to physical therapy for subacute knee pain. Pt reports knee pain since beginning of January. Has a brace with metal pieces on the side, which helps him feelmore steady. If he doesn't have it on, knee feels like it moves from side to side, and pops. Imaging: XR L knee 01/29/23 Pain: Intensity: at best: 4-5/10 on a weekend when not doing much; at worst: 9/10 in the evening after lots of stairs and ladders Location: With stairs anterior inferior knee, with uneven ground on the sides, with prlonged standing just above the patella Nature: Tugging, feels like it wants to give out going down stairs Exacerbating factors: Stairs, ladders, prolonged sitting in the car Alleviating factors: Cannabis might help, rest eg on weekends Neurological symptoms: denies numbness and tingling Mechanical symptoms: Popping with lateral movements Function: Prior level of function: No pain or limitation relative to left knee Current functional limitations: difficulty with stairs, ladders, prolonged sitting 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 CLINICAL FINDINGS Observation: Stands with L knee hyperextension Gait Pattern: L knee hyperextension Heel raise: R NPT, L NPT Overhead squat: <30 degrees due to pain Single leg stance: Painful, hyperextends on left Knee range of motion: R: 3-0-130, 130 in prone L: 3-0-120, 120 in prone Knee strength: Motion Strength (/5) Right Strength (/5) Left Flexion 5/5 4/5 Extension 5/5 3+/5 Hip Range of Motion: R: FLX 100, ER 45, IR 25, EXT 20 L: FLX 100, ER 70, IR 25, EXT 20 Hip strength: Motion Strength (/5) Right Strength (/5) Left Flexion 5/5 5/5 ER 5/5 3+/5* IR 5/5 5/5 ABduction 5/5 4/5 ADduction 4/5 4/5 Extension 5/5 5/5 *Limited by pain Ankle range of motion: R: WNL L: WNL Ankle strength: Motion Strength (/5) Right Strength (/5) Left Dorsiflexion 5/5 5/5 Plantar flexion See heel raise See heel raise Inversion 5/5 5/5 Eversion 5/5 5/5 Palpation: Reproduction of pain with palpation of pes anserine, anteromedial joint line, inferior patellar pole Patellar mobility: Slighty increased on L Muscle Length: Quads: Short R, feels pain in knee prior to quad stretch Hamstrings: 65 deg straight leg raise bilaterally Matos test: 0 degrees: Painful 30 degrees: Painful 60 degrees: Mildly painful 90 degrees: Mildly painful ASSESSMENT Clinical evaluation and diagnosis: Isaac Le is a 42 y.o. male presenting with left anterior knee pain of approximately four months duration. Examination reveals tenderness along anterior joint line, pes anserine, and medial hamstrings. He stands with genu recurvatum, particularly on the left side. Resisted knee extension consistently reproduces pain. Pt may be associated with combination of knee hyperextension, hamstrings overuse, repetitive kneeling over time at work, and laterally tracking patella. He will likely benefitfrom targeted stretching and strengthening exercise and cueing to reduce knee hyperextension duringprolonged standing. This is of course pending upcoming MRI. Current impairments limit the patient with stairs and climbing ladders, causing severe pain by the end of his work day and decreasing quality of life. Isaac will benefit from skilled physical therapy interventions to address these limitations and to maximize level of function. Patient's co morbidities can be found in the problem list of the electronic medical record. Clinical presentation: Stable Evolving Unstable X Notes: Based on further diagnostics to be performed Clinical decision making of moderate complexity using standardized patient assessment instrument and measurable assessment of functional outcome. GOALS Short term goals: Patient will... Date set: Initial eval Progress: Progress: Demonstrate independence with home exercise program in 2 weeks to improve outcome and increase ability to self-treat exacerbations. Instructed in initial home exercise program today. Decrease NPRS rating by 2 points in 2 weeks to demonstrate improvement in pain and to progress function. 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 Date set: Initial eval Progress: Progress: Be able to ascend and descend stairs with knee pain less than 3/10 in 8 weeks. --- Be able to climb ladders with knee pain less than 3/10 in 8 weeks. --- Be able to ride in the car x 1 hour with knee pain less than 3/10 in 8 weeks. --- LEFS MCID: [place] et al, 2000 TREATMENT Examination Patient education regarding diagnosis and physical therapy plan of care Instruction in a home exercise program Access Code: [email or web address] URL: [email or web address] Date: 06/04/2023 Prepared by: Bette Issa Program Notes Red --> green --> blue --> black Exercises - Prone Quadriceps Stretch with Strap - 2 x daily - 7 x weekly - 1 sets - 2 reps - 30-60 sec hold - Seated Table Hamstring Stretch - 2 x daily - 7 x weekly - 1 sets - 2 reps - 30-60 sec hold - Sitting Knee Extension with Resistance - 1-2 x daily - 7 x weekly - 2 sets - 10-20 reps - Standing Hip Abduction with Anchored Resistance - 1-2 x daily - 7 x weekly - 2 sets - 10-20 reps - red band - Standing Hip Adduction with Anchored Resistance - 1-2 x daily - 7 x weekly - 2 sets - 10-20 reps - red band PLAN Work on HEP, follow up with PT if pain is not improving The plan has been discussed with the patient and the patient agrees with the plan of care. Total Treatment Time: 40 minutes Total Timed Code Treatment: 0 minutes Bette Issa PT, DPT [facility] Outpatient Rehabilitation documented in this encounter Plan of Treatment Upcoming Encounters Date Type Department Care Team (Late st Contact Info) Description 12/22/2023 9:45 AM EDT Appointment XRay at [address] [place] [address] 12/22/2023 10:50 AM EDT Office Visit [place] [address] Clinic, Dr Rizzo Team None documented as of this encounter Visit Diagnoses Diagnosis Left knee pain, unspecified chronicity documented in this encounter Care Teams Professor Of Oceanography Relationship Specialty Start Date End Date Tacho Jurado PA [address] [place] [address] PCP - General Internal Medicine 08/07/21 documented as of this encounter
--- OUTSIDE RECORDS SUMMARY | 2023-11-12 21:02 | XMS_ITS | Encounter Summary ---
Author Organization [facility] Prem [address] [address] Care Team Providers Care Instructional Technology Facilitator Name Role Phone Tacho Jurado Primary Care Provider Encounter Details Date Type Department Care Team (Late st Contact Info) Description 12/05/2021 Telephone Physical Therapy at [facility] [address] [place] [phone] Jolie Proctor Social History Tobacco Use Types [...] 12/22/2023 9:45 AM EDT Appointment XRay at [address] [place] [address] 12/22/2023 10:50 AM EDT Office Visit Orthopaedics at [facility] [place] [phone] Clinic, Dr Rizzo Team None documented as of this encounter Visit Diagnoses Not on filedocumented in this encounter Care Teams Instructional Technology Facilitator Relationship Specialty Start Date End Date Tacho Jurado PA [address] [place] [phone] PCP - General Internal Medicine 08/07/21 documented as of this encounter
--- OUTSIDE RECORDS SUMMARY | 2023-11-12 21:03 | XMS_ITS | Encounter Summary ---
Author Organization [facility] [place] [address] Care Team Providers Care Multisensor Intelligence Officer Name Role Phone Tacho Jurado Primary Care Provider [phone] Reason for Visit * Reason Onset Date Comments Results 09/01/2021 Encounter Details Date Type Department Care Team (Late st Contact Info) Description 09/01/2021 [place] [address] Sinai Patton APRN [facility] [place] [address] Results Social History Tobacco Use Types Packs/Day Years [...] encounter Miscellaneous Notes * Telephone Encounter - Sinai Patton APRN - 09/01/2021 12:04 PM EDT Called Isaac back with Dr. Rutherford's recommendations. Surgical options would most likely be chondroplasty and debridement. The proximal biceps tear appears old and not repairable. Labral changes appear degenerative. Other options could include a fluoro guided steroid injection, NSAIDs, PT. At this time, Isaac would like to proceed with arthroscopy with debridement and probable chondroplasty. I will send a notation to Dr. Rutherford for surgical booking orders. He was appreciative of the call. The patient indicates understanding of these issues and agrees with the plan. documented in this encounter Plan of Treatment Upcoming Encounters Date Type Department Care Team (Late st Contact Info) Description 12/22/2023 9:45 AM EDT Appointment XRay at [address] [place] [address] 12/22/2023 10:50 AM EDT Office Visit Orthopaedics at [facility] [place] [address] Clinic, Dr Rizzo Team None documented as of this encounter Visit Diagnoses Not on filedocumented in this encounter Care Teams Multisensor Intelligence Officer Relationship Specialty Start Date End Date Tacho Jurado PA [address] [place] [address] PCP - General Internal Medicine 08/07/21 documented as of this encounter
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
--- OUTSIDE RECORDS SUMMARY | 2023-11-12 21:03 | XMS_ITS | Encounter Summary ---
Author Organization [facility] Address [facility] [place] [address] Care Team Providers Care Draw Frame Runner Name Role Phone Tacho Jurado Primary Care Provider [phone] Reason for Visit * Physical Therapy (Routine) - Closed Specialty Diagnoses / Procedures Referred By Contac t Referred To Contact Physical Therapy Diagnoses Tear of left rotator cuff, unspecified tear extent, unspecified whether traumatic Left shoulder pain, unspecified chronicity Petra Rutherford MD [facility] [place] [address] [address] [place] [address] Referral ID Status Reason Start Date Expiration Date V isits Requested Visits Authorized [id number] Closed Evaluate and Treat 10/02/2021 10/02/2022 30 30 Encounter Details Date Type Department Care Team (Late st Contact Info) Description 11/05/2021 7:00 AM EDT Office Visit Physical Therapy at [facility] [address] [place] [phone] Graham Huynh, PT Chronic pain in left [...] - Therapy - Graham Huynh, PT - 11/05/2021 7:00 AM EDT I was present throughout today's treatment/evaluation of the patient with my student participating.Following the session I've reviewed, discussed and provided feedback to my student in which updatesto the note were made. I concur with the note as written and recommend continuing treatment per Plan of Care as written. Physical Therapy Treatment Note Date of Exam/First Treatment: 11/05/2021 Referring Provider: Petra Rutherford MD [facility] [place] [address] Diagnosis and Pertinent Co-Morbidities affecting Plan of Care: ICD-10-CM 1. Chronic pain in left shoulder M25.512 G89.29 Date of onset/surgery: July 2021 Procedure: NA Precautions: NA Subjective Pt reports that his shoulder has been doing fairly well. He has been on vacation for a large part of the past 3 weeks and has been enjoying his time. Pt states that reaching out and picking up objects is still aggravating for his shoulder. Pt is hoping to start OT for his hand soon. He rates his pain symptoms today as 1/10. Objective CPT Charges: Therex: Strength/Endurance/ROM (80791) 45 min - Pt shoulder AROM continues to be WNL Therex: UBE 1x6min IR/ER RTB 2x15 bilat Rows YTB 2x15 [...] 12/22/2023 9:45 AM EDT Appointment XRay at [address] [place] [address] 12/22/2023 10:50 AM EDT Office Visit Orthopaedics at [facility] [place] [address] Clinic, Dr Rizzo Team None documented as of this encounter Visit Diagnoses Diagnosis Chronic pain in left shoulder Pain in joint, shoulder region documented in this encounter Care Teams Draw Frame Runner Relationship Specialty Start Date End Date Tacho Jurado PA [address] [place] [address] PCP - General Internal Medicine 08/07/21 documented as of this encounter
--- OUTSIDE RECORDS SUMMARY | 2023-11-12 21:03 | XMS_ITS | Encounter Summary ---
Author Organization [facility] [place] [address] Care Team Providers Care Marketing Performance Analyst Name Role Phone Tacho Jurado Primary Care Provider [phone] Reason for Visit * Reason Onset Date Comments Results 08/29/2021 Encounter Details Date Type Department Care Team (Late st Contact Info) Description 08/29/2021 Telephone [place] [address] Sinai Patton APRN [facility] [place] [address] Results Social History Tobacco Use Types Packs/Day [...] Telephone Encounter - Sinai Patton APRN - 08/29/2021 4:17 PM EDT Called with results. 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 I am going to reach out to Dr. Rutherford to see if he would recommend fixing this given his line of work/livelihood. I will call him early next week to discuss Dr. Rutherford's opinion. He was appreciative of the call. FINDINGS: Rotator cuff: Tendinosis and interstitial fissuring of the supraspinatus. Tendinosis of the subscapularis. No rotator cuff tendon tear. Normal bulk and signal of the rotator cuff muscles. ?? Labrum: Irregularity and heterogeneous signal of the superior labrum is consistent with degeneration. There is a posterior labral tear at approximately at the 9:00 position. ?? Bones, cartilage, joint: Deep partial thickness cartilage thinning of the central to posterior glenoid with associated subchondral cystic change of the posterior glenoid (series 11, image 16). No acute fracture or bone marrow replacing lesion. No glenohumeral joint effusion. Nonspecific edema within the rotator interval. ?? Biceps tendon: Complete rupture of the long head of biceps tendon with retraction more distally (series 9, image 12). ?? Acromioclavicular joint: Marginal osteophyte formation formation with subchondral cystic change is consistent with osteoarthropathy. There is no os acromiale. ?? Bursae and fluid:Trace fluid within the subacromial/subdeltoid bursa (series 6, image 12 and series 9, image 13). ?? Other extra articular: No solid or cystic compressive lesion in the suprascapular or spinoglenoid notches. No compressive lesion in the quadrilateral space. ?? IMPRESSION 1. Tendinosis of the supraspinatus and [...] the clinical syndrome of adhesive capsulitis. ?? documented in this encounter Plan of Treatment Upcoming Encounters Date Type Department Care Team (Late st Contact Info) Description 12/22/2023 9:45 AM EDT Appointment XRay at [address] [place] [address] 12/22/2023 10:50 AM EDT Office [place] [address] Clinic, Dr Rizzo Team None documented as of this encounter Visit Diagnoses Not on filedocumented in this encounter Care Teams Marketing Performance Analyst Relationship Specialty Start Date End Date Tacho Jurado PA [address] [place] [address] PCP - General Internal Medicine 08/07/21 documented as of this encounter
--- OUTSIDE RECORDS SUMMARY | 2023-11-12 21:03 | XMS_ITS | Encounter Summary ---
Author Organization [facility] [place] [address] Care Team Providers Care Air Traffic Controller Name Role Phone Tacho Jurado Primary Care Provider [phone] Encounter Details Date Type Department Care Team (Late st Contact Info) Description 09/01/2021 Orders [place] [phone] Petra Rutherford MD [facility] [place] [address] Chronic pain in left shoulder Social History [...] 12/22/2023 9:45 AM EDT Appointment XRay at [address] [place] [phone] 12/22/2023 10:50 AM EDT Office [place] [phone] Clinic, Dr Rizzo Team None documented as of this encounter Visit Diagnoses Diagnosis Chronic pain in left shoulder Pain in joint, shoulder region documented in this encounter Care Teams Air Traffic Controller Relationship Specialty Start Date End Date Tcaho Jurado PA [address] [place] [address] PCP - General Internal Medicine 08/07/21 documented as of this encounter
--- OUTSIDE RECORDS SUMMARY | 2023-11-12 21:03 | XMS_ITS | Encounter Summary ---
Author Organization [facility] [place] [address] Care Team Providers Care Print Developer Automatic Name Role Phone Tacho Jurado Primary Care Provider [phone] Encounter Details Date Type Department Care Team (Latest Contact Info) Description 08/20/2021 12:00 PM EDT Ancillary Procedure Radiology XRay at [facility] at [address] [place] [address] Sinai Patton, [facility] [place] [address] Left shoulder pain, unspecified chronicity Social History [...] 12/22/2023 9:45 AM EDT Appointment XRay at [address] [place] [address] 12/22/2023 10:50 AM EDT Office Visit Orthopaedics at [facility] [place] [phone] Clinic, Dr Rizzo Team None documented as of this encounter Procedures Procedure Name Priority Date/Time Associated Diagnosis Comments XR PRE MRI ORBITS Routine 08/20/2021 12: 02 PM EDT Left shoulder pain, unspecified chronicity documented in this encounter Results * XR Pre MRI Orbits (Generic) (08/20/2021 12:02 PM EDT) Anatomical Region Laterality Modality Head N/A Digital Radiogra phy Impressions 08/20/2021 12:50 PM EDT No orbital radiopaque foreign body Thank you for letting us participate in the care of this patient. ??If you are a health care provider and have any questions regarding this report, please contact the number below. ??For patients who have questions please contact the health career technical counselor that requested your imaging first. ? 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 If youare a health care provider and have any questions regarding this report,please contact the number below. For patients who have questions please contactthe health career technical counselor that requested your imaging first. Sinai Patton [facility] DX ORDERABLES documented in this encounter Visit Diagnoses Diagnosis Left shoulder pain, unspecified chronicity documented in this encounter Care Teams Print Developer Automatic Relationship Specialty Start Date End Date Tacho Jurado PA [address] [place] [address] PCP - General Internal Medicine 08/07/21 documented as of this encounter
--- OUTSIDE RECORDS SUMMARY | 2023-11-12 21:03 | XMS_ITS | Encounter Summary ---
Author Organization [facility] [place] [address] Care Team Providers Care String Winding Machine Operator Name Role Phone Joaquín Herring Spencermicheline ARSLAN Primary Care Provider Encounter Details Date Type Department Care Team (Latest Contact Info) Description 08/29/2020 11:12 AM EDT - 08/29/2020 11:59 PM EDT Hospital Encounter Hematology [place] [address] Other acute pulmonary embolism, unspecified whether acute cor pulmonale present Discharge Disposition: Home Social History Tobacco Use Types Packs/Day Years Used Date Smoking Tobacco: Never Smokeless Tobacco: Never Sex and Gender Information Value Date Recorded Sex Assigned at Male 10/08/2021 9:03 PM EDT Gender Identity Not on file Sexual Orientation Not on file documented as of this encounter Medications at Time of Discharge Medication Sig Dispensed Refills Start Date End Date albuteroL 90 mcg/actuation HFA Aerosol Inhaler Inhale 90 puffs into the lungs daily as needed. 05/29/2020 atorvastatin (Lipitor) 20 mg Tablet Take 20 mg by mouth daily. 08/26/2020 Xarelto 15 mg Tablet Take 20 mg by mouth daily. 10mg 05/26/2020 albuteroL (ProAir HFA) 90 mcg/actuation HFA Aerosol Inhaler Inhale 90 puffs into the lungs every 4 hours as needed. 08/07/2021 Armodafinil (NUVIGIL) 150 mg Tablet Take 1 tablet by mouth daily. 08/14/2020 08/07/2021 chlorhexidine (PERIDEX) 0.12 % Mouthwash Take 0.12 mLs by mouth daily. 04/02/2020 08/07/2021 diazePAM (Valium) 10 mg Tablet Take 10 mg by mouth daily. 04/02/2020 08/07/2021 rivaroxaban 15 mg (42)- 20 mg (9) Tablets, Dose Pack Take 15 mg by mouth daily. 05/26/2020 08/07/2021 documented as of this encounter Plan of Treatment Upcoming Encounters Date Type Department Care Team (Late st Contact Info) Description 12/22/2023 9:45 AM EDT Appointment XRay at [address] [place] [address] 12/22/2023 10:50 AM EDT Office Visit Orthopa[facility]ics at [facility] [place] [address] Clinic, Dr Rizzo Team None documented as of this encounter Procedures Procedure Name Priority Date/Time Associated Diagnosis Comments TT Routine 08/29/2020 11:29 AM EDT Other acute pulmonary embolism, unspecified whether acute cor pulmonale present PTT Routine 08/29/2020 11:29 AM EDT Other acute pulmonary embolism, unspecified whether acute cor pulmonale present PT Routine 08/29/2020 11:29 AM EDT Other acute pulmonary embolism, unspecified whether acute cor pulmonale present PLAT Routine 08/29/2020 11:29 AM EDT Other acute pulmonary embolism, unspecified whether acute cor pulmonale present FIBR Routine 08/29/2020 11:29 AM EDT Other acute pulmonary embolism, unspecified whether acute cor pulmonale present THROMBOSIS SCREEN REPORT Routine 08/29/2020 11:29 AM EDT HC HOMOCYSTEINE Routine 08/29/2020 11:29 AM EDT Other acute pulmonary embolism, unspecified whether acute cor pulmonale present THS REPORT Routine 08/29/2020 11:29 AM EDT Other acute pulmonary embolism, unspecified whether acute cor pulmonale present PROTEIN S ACTIVITY Routine 08/29/2020 11 :29 AM EDT PROTHROMBIN GENE MUTATION Routine 08/29/2020 11:29 AM EDT BETA-2 GLYCOPROTEIN ANTIBODIES Routine 08/29/2020 11:29 AM EDT Other acute pulmonary embolism, unspecified whether acute cor pulmonale present PROTEIN C ACTIVITY Routine 08/29/2020 11 :29 AM EDT CARDIOLIPIN ANTIBODY SCREEN Routine 08/29/2020 11:29 AM EDT Other acute pulmonary embolism, unspecified whether acute cor pulmonale present ANTITHROMBIN Routine 08/29/2020 11:29 AM EDT HOMOCYSTEINE TOTAL, PLASMA Routine 08/29/2020 11:29 AM EDT Other acute pulmonary embolism, unspecified whether acute cor pulmonale present documented in this encounter Results * Thrombosis Screen Report (08/29/2020 11:29 AM EDT) Thrombosis Screen Report [id number] ? Location: The signing pathologist has (i) examined the relevant preparation(s) for the specimen(s) and (ii) rendered or confirmed the diagnosis(es). . ? Thrombosis Screen DIAGNOSIS 1. Prolonged PT and PTT, likely due to anticoagulation. 2. Heterozygous for Factor V Leiden. 3. ??No evidence for the presence of additional common hereditary/acquired ?? hematologic risk factors associated with unexplained venous ?? thromboembolism (see Discussion). Electronically signed by: ?Chasidy BARR, Sinai Gar Verified: ??09/06/2020 16:05 ??Hematopathologist Performed at: ??-[facility] Dept. of Pathology, [place], [place] ADDITIONAL STUDIES TEST ?(REFERENCE RANGE) ?RESULT Platelet count ?(145,000-357,000/ uL) ?297,000/cumm PT ?(9.4-12.5) ?13.5 sec PTT ? (25-37) ? 39 sec Fibrinogen ?(200-393) ?344 mg/dl Thrombin time ? (10-17) ? 15 sec APC resistance, ratio ? (>2.54) ? Not performed* Antithrombin ?(83-128%) ? 118% Protein C ? (70-140%) ? 123% Protein S ? (64-149%) ? >150% Lupus anticoagulant (DRVVT ratio) (<1.20) ? Not performed Lupus anticoagulant (SCT ratio) ?? (<1.16) ? Not performed Anticardiolipin antibodies ?(IgG </= 14.9 GPL) ?<9.4 GPL Anticardiolipin antibodies ?(IgM </= 12.5 MPL) ?10.4 MPL Ohqw-4-yedsfgdnahao -1 antibodies ??(IgG </= 20 units) ?<9.4 units Bnch-7-vkflaqgvqsde -1 antibodies ??(IgM </= 20 units) ?<9.4 units Homocysteine, random, plasma ?(</=15 umol/L) ?10 umol/L Factor V Leiden Mutation ?(normal) ?Not performed Prothrombin (47009 G->A) mutation (normal) ?Negative * Functional assay for free Protein S and Protein C Not performed due to potential interference from direct oral anticoagulant. Previously performed elsewhere, with result = heterozygous. Not repeated here. DISCUSSION Tests for a lupus anticoagulant cannot be performed on this specimen as this patient is currently being treated with a direct oral anticoagulant (apixaban). Lupus anticoagulant testing is unreliable in the presence of this class of medications, thus if antiphospholipid syndrome is suspected clinically, suggest separate LA testing after an anticoagulant hiatus of at least 72 hours. Note that tests for anticardiolipin and tfuq-dpwl-3-GP1 antibodies are accurate in the presence of these medications and the results are NEGATIVE in this study. ?Similarly, levels of protein C and protein S may be overestimated in the presence of rivaroxaban or apixaban. If there is strong suspicion for a deficiency of one of these proteins, suggest repeat testing after discontinuation of the potentially interfering medication. This individual may have additional as yet undefined genetic or environmental risk factors for venous thrombosis. Consultation with a thrombosis specialist or genetic counselor may be helpful for further characterizing specific thrombosis risk for this patient, if clinically appropriate. . CLINICAL INFORMATION 39 yo man with unprovoked PE, previous testing showed heterozygous factor V Leiden. Family history of factor V Leiden in half sister. [facility] 08/29/2020 11:2 9 AM EDT Sinai Umaña MD PATHOLOGY/CYTOLOGY ORDERABLES Performing Organization Address City/[facility]/ZIP Co de Phone Number [facility] [place] [address] * (ABNORMAL) Protein S Activity (08/29/2020 11:29 AM EDT) Protein S Act >150(H) 64 - 149 % activity [facility] Blood Venous Draw / Unknown 08/29/2020 11:29 AM EDT 08/29/2020 11:35 AM EDT Narrative Resulting Agency Comment Spec In Lab Sinai Umaña MD HEMATOLOGY ORDERAB LES Performing Organization Address City/[facility]/ZIP Co de Phone Number [facility] [place] [address] * Protein C activity (08/29/2020 11:29 AM EDT) Protein C Activity 123 70 - 140 % [facility] Blood Venous Draw / Unknown 08/29/2020 11:29 AM EDT 08/29/2020 11:35 AM EDT Narrative Resulting Agency Comment Spec In Lab Sinai Umñaa MD HEMATOLOGY ORDERAB LES Performing Organization Address City/[facility]/ZIP Co de Phone Number [facility] [place] [address] * Antithrombin (08/29/2020 11:29 AM EDT) Antithrombin III Assay 118 83 - 128 % [facility] Blood Venous Draw / Unknown 08/29/2020 11:29 AM EDT 08/29/2020 11:35 AM EDT Narrative Resulting Agency Comment Spec In Lab Sinai Umaña MD HEMATOLOGY ORDERAB LES [facility] [place] [address] * Prothrombin gene mutation (08/29/2020 11:29 AM EDT) Pathologist [facility] Prothrombin Mutation Negative [facility] Prothrombin Mutation Interp RESULT: NEGATIVE for the Factor II 38172D>A variant in 3? untranslated region of the prothrombin gene INTERPRETATION: The negative finding indicates that this patient is not at increased risk of thrombosis resulting from a Factor II 33746W>A associated elevation of prothrombin. Negative results indicate the absence of the prothrombin 32547A>A variant ([id number] 13G>A, [id number]), but do not rule out the presence of other rare variants within the prothrombin gene or other causes of thromboembolic disease. Clinical correlation is recommended. METHODS: The region of interest in the Prothrombin gene (95291C>A) is interrogated using a TaqMan allelic discrimination assay. Genomic DNA was isolated from the submitted peripheral blood specimen. Real-time PCR was performed to amplify a short region spanning the variant site, and genotyping was performed by allelic discrimination using a mixture of fluorescently labeled probes, one of which is specific for the reference sequence, the other specific for the variant allele. This test was developed and its performance characteristics determined by the [facility] at [facility]. It has not been cleared or approved by the FDA. The laboratory is regulated under CLIA as qualified to perform high-complexity testing. This test is used for clinical purposes. It should not be regarded as investigational or for research. [facility] Comment: [VERIFIED DATE]09.05.20 Verified By:Randell Ph.D., FAC, Filomena A Clinical Mirror Silverer/Director Drug Safety (Electronic Signature) Blood Venous Draw / Unknown 08/29/2020 11:29 AM EDT 08/29/2020 1:07 PM EDT Narrative Resulting Agency Comment Spec In Lab Sinai Umaña MD MOLECULAR ORDERABL ES Performing Organization Address [facility] Co de Phone Number [facility] [place] [place] [address] * Beta-2 glycoprotein antibodies (08/29/2020 11:29 AM EDT) Beta 2 Glycoprotein, IgG <9.4 <=20.0 unit(s) [facility] Beta 2 Glycoprotein, IgM <9.4 <=20.0 unit(s) [facility] B2GPI Interp See Thrombosis Screen Report [id number] Hematopatholo gy Reports. [facility] Blood 08/29/2020 11:2 9 AM EDT 08/29/2020 2:38 PM EDT Narrative Resulting Agency Comment Spec In Lab Sinai Umaña MD IMMUNOLOGY ORDERAB LES Performing Organization Address [facility] Co de Phone Number [facility] [place] [address] * Homocysteine Total, Plasma (08/29/2020 11:29 AM EDT) Homocystine 10 <=15 mcmol/L [facility] Blood 08/29/2020 11:2 9 AM EDT 08/29/2020 11:35 AM EDT Narrative Resulting Agency Comment Spec In Lab Sinai Umaña MD CHEMISTRY ORDERABL ES Performing Organization Address [facility] Co de Phone Number [facility] [place] [place] [address] * Cardiolipin Antibody Screen (08/29/2020 11:29 AM EDT) Cardiolipin Antibody IgG <9.4 <=14.9 GPL unit(s) [facility] Comment: Ranges ?? GPL ------ ?? --- Negative ?? <=14.9 Indeterminate ??15.0 - 20.0 Low/Medium Positive 20.1 - 80.0 High Positive ??>80.0 Cardiolipin Antibody IgM 10.4 <=12.5 MPL unit(s) [facility] Comment: Ranges ?? MPL ------ ?? --- Negative ?? <=12.5 Indeterminate ??12.6 - 20.0 Low/Medium Positive 20.1 - 80.0 High Positive ??>80.0 Blood 08/29/2020 11:2 9 AM EDT 08/29/2020 2:38 PM EDT Narrative Resulting Agency Comment Spec In Lab Sinai Umaña MD IMMUNOLOGY ORDERAB LES Performing Organization Address [facility] Co de Phone Number [facility] [place] [address] * THS Report (08/29/2020 11:29 AM EDT) THS Report See Comment [facility] Comment:See Thrombosis Scree n Report [id number] under Hematopathology Reports. Blood 08/29/2020 11:2 9 AM EDT 08/29/2020 11:35 AM EDT Narrative Resulting Agency Comment Spec In Lab Sinai Umaña MD HEMATOLOGY ORDERAB LES Performing Organization Address [facility] Co de Phone Number [facility] [place] [address] * Plat (08/29/2020 11:29 AM EDT) Platelet 297 145 - 357 x10(3)/mc L [facility] Immature Plt % 1.9 0.0 - 7.4 % [facility] Comment: Limitation of the Immature Platelet Fraction (IPF)-May be less reliable when the platelet count is less than 43o615/uL due to statistical imprecision. The IPF value provides an assessment of the Bone Marrow production status. ??It is useful in differentiating Thrombocytopenia caused by platelet destruction/consumption versus decreased production. It also helps to determine the imminent release of platelets and can be therefore a helpful parameter in Chemotherapy and Bone marrow transplant patients. ELEVATED IPF value: ?? When the bone marrow is in a state of over production such as when increased destruction and consumption are the underlying issue. ?? When the marrow is recovering post chemotherapy or bone marrow transplant. LOW to NORMAL IPF value: ?? When the bone marrow in not responding and is in a decreased state of production. References: [employer] The Clinical Value of the Immature Platelet Fraction (IPF) in Cell Recovery Document Number [id number] 08/2010 [employer] The Role of the Immature Platelet Fraction (IPF) in the Differential Diagnosis of Thrombocytopenia, Document [id number] V05 P008/02 Blood 08/29/2020 11:2 9 AM EDT 08/29/2020 11:35 AM EDT Narrative Resulting Agency Comment Spec In Lab Sinai Umaña MD HEMATOLOGY ORDERAB LES Performing Organization Address City/[facility]/ZIP Co de Phone Number [facility] [place] [address] * TT (08/29/2020 11:29 AM EDT) Thrombin Time 15 10 - 17 sec [facility] Comment: A prolongation in the thrombin time (>20 seconds) may be indicative of hypofibrinogenemia or dysfibrinogenemia. The thrombin time will be prolonged, often markedly so, by the presence of heparin or direct thrombin inhibitors (argatroban, bivalirudin, dabigatran) in the specimen. Blood 08/29/2020 11:2 9 AM EDT 08/29/2020 11:35 AM EDT Narrative Resulting Agency Comment Spec In Lab Sinai Umaña MD HEMATOLOGY ORDERAB LES Performing Organization Address City/[facility]/ZIP Co de Phone Number [facility] [place] [place] [address] * FIBR (08/29/2020 11:29 AM EDT) Fibrinogen 344 200 - 393 mg/dL [facility] Comment: A fibrinogen level >100 mg/dL is adequate for hemostasis in most patients without underlying bleeding disorders. Blood 08/29/2020 11:2 9 AM EDT 08/29/2020 11:35 AM EDT Narrative Resulting Agency Comment Spec In Lab Sinai Umaña MD HEMATOLOGY ORDERAB LES Performing Organization Address [facility] Co de Phone Number [facility] [place] [place] [address] * (ABNORMAL) PTT (08/29/2020 11:29 AM EDT) Partial Thromboplastin Time 39(H) 25 - 37 sec [facility] Comment: The PTT is NOT appropriate for heparin monitoring. Use the Anti-Xa level for heparin monitoring (HEP UFH) or LMWH monitoring (HEP LMW). A PTT less than 37 seconds generally indicates adequate hemostasis. Blood 08/29/2020 11:2 9 AM EDT 08/29/2020 11:35 AM EDT Narrative Resulting Agency Comment Spec In Lab Sinai Umaña MD HEMATOLOGY ORDERAB LES Performing Organization Address [facility] Co de Phone Number [facility] [place] [address] * (ABNORMAL) PT (08/29/2020 11:29 AM EDT) Prothrombin Time 13.5(H) 9.4 - 12.5 sec [facility] International Normalization Ratio 1.2 [facility] Comment: An INR <2.0 indicates adequate procoagulant activity for hemostasis in most patients without underlying bleeding disorders, though the INR may not adequately reflect hemostatic capacity in patients with liver disease and synthetic impairment. The recommended target INR range for therapeutic anticoagulation is 2.0 ? 3.0 for most applications, though lower and higher ranges may be appropriate depending on clinical circumstances. Blood 08/29/2020 11:2 9 AM EDT 08/29/2020 11:35 AM EDT Narrative Resulting Agency Comment Spec In Lab Sinai Umaña MD HEMATOLOGY ORDERAB LES Performing Organization Address City/State/[facility] Co de Phone Number [facility] [place] [address] documented in this encounter Visit Diagnoses Diagnosis Other acute pulmonary embolism, unspecified whether acute cor pulmonale present documented in this encounter Care Teams String Winding Machine Operator Relationship Specialty Start Date End Date Joaquín Herring DNP PCP - General Family Medicine 05/30/20 08/06/21 documented as of this encounter
--- OUTSIDE RECORDS SUMMARY | 2023-11-12 21:03 | XMS_ITS | Encounter Summary ---
Author Organization [facility] Address [facility] [place] [address] Care Team Providers Care Sheep Sticker Name Role Phone Tacho Jurado Primary Care Provider [phone] Reason for Referral * Physical Therapy (Routine) - Closed Specialty Diagnoses / Procedures Referred By Contac t Referred To Contact Physical Therapy Diagnoses Tear of left rotator cuff, unspecified tear extent, unspecified whether traumatic Left shoulder pain, unspecified chronicity Petra Rutherford MD [facility] [place] [address] [address] [place] [address] Referral ID Status Reason Start Date Expiration Date V isits Requested Visits Authorized [id number] Closed Evaluate and Treat 10/02/2021 10/02/2022 30 30 Reason for Visit * Reason Comments Pre-op Exam LT shoulder scope di scussion Encounter Details Date Type Department Care Team (Late st Contact Info) Description 10/02/2021 8:20 AM EDT Office [place] [address] Petra Rutherford MD [facility] [place] [address] Tear of left rotator cuff, unspecified tear extent, unspecified whether traumatic; Left shoulder pain, unspecified chronicity; Pain in joint of left shoulder Social History Tobacco Use Types [...] Pressure 115/73 10/02/2021 8:05 AM EDT Pulse - - Temperature - - Respiratory Rate - - Oxygen Saturation - - Inhaled Oxygen Concentration - - Weight 131.5 kg (290 lb) 10/02/2021 8:05 AM EDT Height 167.6 cm (5' 5.98) 10/02/2021 8:05 AM ED T Body Mass Index 46.84 10/02/2021 8:05 AM EDT documented in this encounter Progress Notes * Petra Rutherford MD - 10/02/2021 8:20 AM EDT Isaac Le returns today for follow up of left shoulder pain. He he is here to talk about his options. Please refer to the office notes of Kim Patton APRN for details of the history. Injury was 2months ago. No formal PT or injections He localizes his pain predominantly around the shoulder and less so around the biceps, but feels as though the bicpes is moving from the front to the back of his arm sometimes. Also feels like the shoulder is frequently dislocating, but no documented xrays of dislocation or formal reduction procedures have been necessary. On physical examination, the patient is alert, oriented, and in no apparent distress. ROM: Slightly limited related to normal contralateral side. 150 FE, 40 ER, IR to L2. Strength: Weak considering no full thickness tear on MRI. 4/5 ER, 4+/5 Abd, 5-/5 IR (contralateralside normal) Moderate to severe scapular ptosis with coracoid pain and trapezial pain. Moderate scapular dyskinesia. No apprehension or instability on exam. No significant TTP over biceps muscle belly. No TTP over AC joint. No obvious abril deformity New studies: Xrays show minimal DJD, normal AHI MRI shows posterior degenerative changes of glenoid and labrum without displaced tear, long head biceps retraction, mild rotator cuff tendinopathy without full thickness tear. Impression: Shoulder pain, scapular dyskinesia, mild stiffness and rotator cuff weakness without full thickness tear. Plan: Recommend conservative treatment at this point. PT, consider glenohumeral injection. Patient will call if he wants to try this. If not successful, we would offer him arthroscopy. Petra Rutherford M.D., M.S. Professor of Orthopaedic Surgery [facility] Department [place] [address] This note was created with [employer] voice recognition software. documented in this encounter Plan of Treatment Upcoming Encounters Date Type Department Care Team (Late st Contact Info) Description 12/22/2023 9:45 AM EDT Appointment XRay at [address] [place] [address] 12/22/2023 10:50 AM EDT Office [place] [address] Clinic, Dr Rizzo Team None Scheduled Referrals Name Type Priority Associated Diagnoses Orde r Schedule Referral to Physical Therapy Outpatient Referral Routine Tear of left rotator cuff, unspecified tear extent, unspecified whether traumatic Left shoulder pain, unspecified chronicity Ordered: 10/02/2021 documented as of this encounter Visit Diagnoses Diagnosis Tear of left rotator cuff, unspecified tear extent, unspecified whether traumatic Left shoulder pain, unspecified chronicity Pain in joint of left shoulder Pain in joint, shoulder region documented in this encounter Care Teams Sheep Sticker Relationship Specialty Start Date End Date Tacho Jurado PA Brandon SHEPHERD [address] [place] [address] PCP - General Internal Medicine 08/07/21 documented as of this encounter
--- OUTSIDE RECORDS SUMMARY | 2023-11-12 21:03 | XMS_ITS | Encounter Summary ---
Author Organization Formerly [facility] [place] [address] Care Team Providers Care Development Scientist Name Role Phone Tacho Jurado Primary Care Provider [phone] Reason for Visit * Reason Onset Date Comments Questions 08/15/2021 Encounter Details Date Type Department Care Team (Late st Contact Info) Description 08/15/2021 Telephone [place] [address] Sinai Patton APRN [facility] [place] [address] Questions Social History Tobacco Use Types Packs/Day Years [...] encounter Miscellaneous Notes * Telephone Encounter - Amber Russell - 08/19/2021 10:59 AM EDT Pt scheduled. * Telephone Encounter - Mayte Anthony RMA - 08/15/2021 1:16 PM EDT Orbits xr pended to Kim Patton APRN for upcoming MRI. Pt will need to have schd in Radiology. 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, and second if he was able to reach out Per Chapatiz message in regards to Authorization documented in this encounter Plan of Treatment Upcoming Encounters Date Type Department Care Team (Late st Contact Info) Description 12/22/2023 9:45 AM EDT Appointment XRay at [address] [place] [address] 12/22/2023 10:50 AM EDT Office [place] [address] Clinic, Dr Rizzo Team None documented as of this encounter Visit Diagnoses Not on filedocumented in this encounter Care Teams Development Scientist Relationship Specialty Start Date End Date Tacho Jurado PA [address] [place] [address] PCP - General Internal Medicine 08/07/21 documented as of this encounter
--- OUTSIDE RECORDS SUMMARY | 2023-11-12 21:03 | XMS_ITS | Encounter Summary ---
[place] [address] Care Team Providers Care Transliterator Name Role Phone Nevaeh, Joaquín Palmermicheline ARSLAN Primary Care Provider [phone] Reason for Referral * Consultation (Urgent) - Closed Specialty Diagnoses / Procedures Referred By Contac t Referred To Contact Orthopaedics Diagnoses Injury of left shoulder, initial encounter Left shoulder pain, Ramakrishna Carpenter APRN [address] [place] [address] [facility] [address] [place] [phone] Referral ID Status Reason Start Date Expiration Date V isits Requested Visits Authorized [id number] Closed Consult, Test & Treat PCP Updated and/or Approved 07/21/2021 07/21/2022 6 6 Encounter Details Date Type Department Care Team (Latest Contact Info) Description 07/21/2021 Transcribe Orders eDH Incoming Referrals [phone] Ramakrishna Carpenter APRN [address] [place] [address] Injury of left shoulder, initial encounter Social History Tobacco Use Types Packs/Day Years [...] 9:45 AM EDT Appointment XRay at [address] [place] [address] 12/22/2023 10:50 AM EDT Office Visit Orthopaedics at [facility] [place] [address] Clinic, [address] Rizzo Team None Scheduled Referrals Name Type Priority Associated Diagnoses Order Schedule Referral to Orthopaedics Outpatient Referral Routine Injury of left shoulder, initial encounter Ordered: 07/21/2021 documented as of this encounter Visit Diagnoses Diagnosis Injury of left shoulder, initial encounter documented in this encounter Care Teams Transliterator Relationship Specialty Start Date End Date Joaquín Herring DNP PCP - General Family Medicine 05/30/20 08/06/21 documented as of this encounter
--- OUTSIDE RECORDS SUMMARY | 2023-11-12 21:03 | XMS_ITS | Encounter Summary ---
Author Organization [facility] [place] [address] Care Team Providers Care Information Architect Name Role Phone Joaquín Herring DNP Primary Care Provider [phone] Reason for Visit * Consultation (Routine) - Specialty Diagnoses / Procedures Referred By Jame navarro Referred To Contact Genetics Diagnoses Activated protein C resistance Joaquín Herring DNP [address] [place] [address] [address] Referral ID Status Reason Start Date Expiration Date V isits Requested Visits Authorized [id number] Consult, Test & Treat Connection Center PCP Updated and/or Approved 06/05/2020 12/06/2020 6 6 Encounter Details Date Type Department Care Team (Latest Contact Info) Description 08/14/2020 11:00 AM EDT TH Visit (TeleHealth) Medical Genetics at [address] [address] Katharina Durant, [facility] [place] [place] [address] Abnormal genetic test Social History Tobacco Use Types Packs/Day Years Used Date Smoking Tobacco: Never Assessed Sex and Gender Information Value Date Recorded Sex Assigned at Male 10/08/2021 9:03 PM EDT Gender Identity Not on file Sexual Orientation Not on file documented as of this encounter Progress Notes * Katharina Durnat, [facility] - 08/14/2020 11:00 AM EDT Isaac has a family history of Factor V Leiden in two of his sisters. 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 Isaac has not had any screening for other thrombophilia conditions. Due to this history a genetic consultation was recommended for further discussion. A three generation pedigree was obtained at the visit today. The family history was significant forFactor V Leiden in his maternal half sister and his sister. His other sister has not been tested but has a history of multiple miscarriages. At the appointment I explained the diagnosis of Factor V leiden and the management implications ayah affected individual. I explained that Factor V Leiden thrombophilia results in an increased riskfor venous thromboembolism (VTE). Deep venous thrombosis (DVT) is the most common VTE, with the legs being the most common site. Factor V is a cofactor that helps in clot formation. Factor V Leiden thrombophilia is suspected in individuals with a history of venous thromboembolism (VTE) manifest as deep vein thrombosis (DVT) or pulmonary embolism, especially in women with a history of VTE during or in association with oral contraceptive use, and in individuals with a personal or familyhistory of recurrent thrombosis. Typically, Factor V is inactivated by activated protein C. When there is a specific change in Factor V, known as the Leiden mutation, activated protein C cannot inactivate Factor V as effectively. Because of this, Factor V Leiden remains in the circulation longer, resulting in increased risk for clot formation. People who have one Factor V Leiden mutation have about a 3-8 fold risk for thromboticevents, whereas individuals with two Factor V Leiden mutations have about a 50-80 fold risk. However, most people with either form of Factor V Leiden do not have thrombotic events. Factor V Leiden is the most common hereditary blood coagulation disorder in the [place] and affects approximately 2-15% of the population. The heterozygous form is inherited as an autosomal dominant trait, with the more severe, homozygous, form being inherited as an autosomal recessive trait. Evidence suggests that a heterozygous factor V Leiden mutation has at most a modest effect on recurrence risk after initial treatment of a first VTE. Heterozygosity for factor V Leiden is associated with a two- to threefold increase in relative risk for loss, and possibly other c omplications such as preeclampsia, growth retardation, and placental abruption. Most people with one copy of the Factor V Leiden mutation never have any thrombotic events.?? We reviewed that the risk for complications is influenced by coexisting genetic thrombophilic disorders as well as acquired thrombophilic disorders (antiphospholipid antibodies, hyperhomocysteinemia,high factor VIII levels). Circumstantial risk factors such as travel, , oral contraceptiveuse, hormone replacement therapy (HRT), inactivity, obesity, smoking, advancing age, and surgery also increase the risk. We reviewed these risk factors in detail at the visit today. He had many questions regarding his treatment, risk for another clotting event and how his covid infection many have contributed to his PE. According the records I received, Isaac was only tested for the Factor V Leiden mutation and did not have testing for any other clotting factors.??Typically I would discuss the option of pursuing a complete thrombophilia panel to better understand the inherited risks for Isaac to have another event. However Isaac has an appointment with hematology planned for next month, so I will defer to hematology to decide about additional testing and address his questions about treatment. We reviewed the 50% risk for his sons to inherit the Factor V Leiden variant. We typically recommend that testing be deferred until adulthood unless it would immediately impact medical care, such as with a minor female who is considering oral contraceptives. We discussed how genetic testing can impact the ability to obtain insurance. A federal law called the Genetic Information Nondiscrimination Act (BONITA) is designed to protect people from being discriminated against due to their genetic testing results in obtaining health insurance and employment. However, the BONITA protections do not extendto life, residential care, or disability insurance policies. We reviewed how a positive genetic testing result may cause an individual difficulty obtaining these types of insurance policies, especiallyif they do not already have them in place. Concerns for genetic discrimination is another reason that we often defer testing of minors until adulthood. Based on the family history his mother likely has Factor V leiden and should consider testing on herself for confirmation. Her family members, especially siblings and parents, may also be at increased risk. I recommended he discuss the risks and recommendation for testing with his mother. I encouraged him to call with additional questions. Katharina Durant MS, [facility] Licensed Senior Genetic Counselor documented in this encounter Plan of Treatment Upcoming Encounters Date Type Department Care Team (Late st Contact Info) Description 12/22/2023 9:45 AM EDT Appointment XRay at [address] [place] [address] 12/22/2023 10:50 AM EDT Office Visit Orthopaedics at [facility] [place] [address] Clinic, [address] Rizzo Team None documented as of this encounter Visit Diagnoses Diagnosis Abnormal genetic test Nonspecific abnormal findings on chromosomal analysis documented in this encounter Care Teams Information Architect Relationship Specialty Start Date End Date Joaquín Herring DNP PCP - General Family Medicine 05/30/20 08/06/21 documented as of this encounter
--- OUTSIDE RECORDS SUMMARY | 2023-11-12 21:03 | XMS_ITS | Encounter Summary ---
Author Organization [facility] [place] [address] Care Team Providers Care Casing Runner Name Role Phone Tacho Jurado Primary Care Provider [phone] Reason for Referral * Diagnostic Test (Routine) - Closed Specialty Diagnoses / Procedures Referred By Contac t Referred To Contact Radiology Diagnoses Left shoulder pain, unspecified chronicity Tear of left rotator cuff, unspecified tear extent, unspecified whether traumatic Subluxation of tendon of long head of biceps Procedures MRI Shoulder wo Contrast Left (Generic) Sinai Patton APRN [facility] [address] [facility] Rad Mri [address] [place] [phone] Referral ID Status Reason Start Date Expiration Date V isits Requested Visits Authorized [id number] Closed Specialty Service Requested 08/15/2021 11/15/2021 1 1 Reason for Visit * Diagnostic Test (Routine) - Closed Specialty Diagnoses / Procedures Referred By Contac t Referred To Contact Radiology Diagnoses Left shoulder pain, unspecified chronicity Tear of left rotator cuff, unspecified tear extent, unspecified whether traumatic Subluxation of tendon of long head of biceps Procedures MRI Shoulder wo Contrast Left (Generic) Sinai Patton APRN [facility] [address] [facility] Mri [address] [place] [address] Referral ID Status Reason Start Date Expiration Date V isits Requested Visits Authorized [id number] Closed Specialty Service Requested 08/15/2021 11/15/2021 1 1 Encounter Details Date Type Department Care Team (Latest Contact Info) Description 08/27/2021 6:30 PM EDT - 08/27/2021 11:59 PM EDT Hospital Encounter Radiology MRI at [address] [place] [address] Sinai Patton APRN [facility] [place] [place] [address] Left shoulder pain, unspecified chronicity; Tear of left rotator cuff, unspecified tear extent, unspecified whether traumatic; Subluxation of tendon of long head of biceps Discharge Disposition: Home Social History Tobacco Use [...] 12/22/2023 9:45 AM EDT Appointment XRay at [facility] [place] [address] 12/22/2023 10:50 AM EDT Office [place] [address] Clinic, Dr Rizzo Team None documented as of this encounter Procedures Procedure Name Priority Date/Time Associated Diagnosis Comments MRI SHOULDER LEFT WO CONTRAST Routine 08/27/2021 7:19 PM EDT Left shoulder pain, unspecified chronicity Tear of left rotator cuff, unspecified tear extent, unspecified whether traumatic Subluxation of tendon of long head of biceps documented in this encounter Results * MRI Shoulder wo Contrast Left (Generic) (08/27/2021 7:19 PM EDT) Anatomical Region Laterality Modality Shoulder Left Magnetic Resonan ce Impressions 08/28/2021 8:57 AM EDT 1. ??Tendinosis of the supraspinatus and subscapularis. There is also superimposed interstitial fissuring of the subscapularis. No rotator cuff tendon tear. 2. ??Subacromial/subdeltoid bursitis. 3. ?? Glenohumeral osteoarthropathy with deep partial is cartilage loss of the posterior glenoid and associated subchondral cystic change. Features include degeneration of the superior labrum and nondisplaced tear of the posterior labrum. 4. ??Complete rupture of the long head of the biceps tendon with distal retraction. 5. ??Nonspecific edema within the rotator interval. In an appropriate clinical context, this finding can be seen in the clinical syndrome of adhesive capsulitis. Thank you for letting us participate in the care of this patient. ??If you are a health care provider and have any questions regarding this report, please contact the number below. ??For patients who have questions please contact the health care associate that requested your imaging first. ? Electronically signed by: Rocio Castro MD, [facility] ([phone]), at 08/28/2021 8:57 AM Narrative 08/28/2021 8:57 AM EDT EXAMINATION: MRI SHOULDER WO CONTRAST LEFT (GENERIC) CLINICAL HISTORY: Shoulder trauma, rotator cuff tear suspected, xray done; severe left shoulder pain after injury ~ 1 month ago clinical exam is concerning for full thickness RTC tear and biceps subluxation ??severe left shoulder pain after injury ~ 1 month ago clinical exam is concerning for full thickness RTC tear and biceps subluxation (as entered by ordering provider in the order requisition) TECHNIQUE: MRI of the left shoulder was performed using a routine protocol. ??Sequences include coronal T2 with fat saturation, coronal proton density, sagittal T1, sagittal proton density with fat saturation, axial proton density with fat saturation, sagittal double oblique T2 with fat saturation. COMPARISON: Left shoulder radiograph 07/15/2021 FINDINGS: Rotator cuff: Tendinosis and interstitial fissuring of the supraspinatus. Tendinosis of the subscapularis. No rotator cuff tendon tear. Normal bulk and signal of the rotator cuff muscles. Labrum: Irregularity and heterogeneous signal of the superior labrum is consistent with degeneration. There is a posterior labral tear at approximately at the 9:00 position. Bones, cartilage, joint: Deep partial thickness cartilage thinning of the central to posterior glenoid with associated subchondral cystic change of the posterior glenoid (series 11, image 16). No acute fracture or bone marrow replacing lesion. No glenohumeral joint effusion. Nonspecific edema within the rotator interval. Biceps tendon: Complete rupture of the long head of biceps tendon with retraction more distally (series 9, image 12). Acromioclavicular joint: Marginal osteophyte formation formation with subchondral cystic change is consistent with osteoarthropathy. There is no os acromiale. Bursae and fluid:Trace fluid within the subacromial/subdeltoid bursa (series 6, image 12 and series 9, image 13). Other extra articular: No solid or cystic compressive lesion in the suprascapular or spinoglenoid notches. No compressive lesion in the quadrilateral space. Procedure Note Rocio Castro MD - 08/28/2021 EXAMINATION: MRI SHOULDER WO CONTRAST LEFT (GENERIC) CLINICAL HISTORY: Shoulder trauma, rotator cuff tear suspected, xraydone; severe left shoulder pain after injury ~ 1 month ago clinical exam is concerning for full thickness RTC tear and biceps subluxation severeleft shoulder pain after injury ~ 1 month ago clinical exam is concerning forfull thickness RTC tear and biceps subluxation (as entered by orderingprovider in the order requisition) TECHNIQUE: MRI of the left shoulder was performed using a routine protocol.Sequences include coronal T2 with fat saturation, coronal proton density, sagittalT1, sagittal proton density with fat saturation, axial proton density withfat saturation, sagittal double oblique T2 with fat saturation. COMPARISON: Left shoulder radiograph 07/15/2021 FINDINGS: Rotator cuff: Tendinosis and interstitial fissuring of thesupraspinatus. Tendinosis of the subscapularis. No rotator cuff tendon tear. Normal bulkand signal of the rotator cuff muscles. Labrum: Irregularity and heterogeneous signal of the superior labrum is consistent with degeneration. There is a posterior labral tear atapproximately at the 9:00 position. Bones, cartilage, joint: Deep partial thickness cartilage thinning ofthe central to posterior glenoid with associated subchondral cystic change ofthe posterior glenoid (series 11, image 16). No acute fracture or bonemarrow replacing lesion. No glenohumeral joint effusion. Nonspecific edema withinthe rotator interval. Biceps tendon: Complete rupture of the long head of biceps tendon with retraction more distally (series 9, image 12). Acromioclavicular joint: Marginal osteophyte formation formation with subchondral cystic change is consistent with osteoarthropathy. There is noos acromiale. Bursae and fluid:Trace fluid within the subacromial/subdeltoid bursa(series 6, image 12 and series 9, image 13). Other extra articular: No solid or cystic compressive lesion in the suprascapular or spinoglenoid notches. No compressive lesion in the quadrilateral space. IMPRESSION 1. Tendinosis of the supraspinatus and subscapularis. There is also superimposed interstitial fissuring of the subscapularis. No rotator cufftendon tear. 2. Subacromial/subdeltoid bursitis. 3. Glenohumeral osteoarthropathy with deep partial is cartilage loss ofthe posterior glenoid and associated subchondral cystic change. Featuresinclude degeneration of the superior labrum and nondisplaced tear of theposterior labrum. 4. Complete rupture of the long head of the biceps tendon with distal retraction. 5. Nonspecific edema within the rotator interval. In an appropriateclinical context, this finding can be seen in the clinical syndrome of adhesive capsulitis. Thank you for letting us participate in the care of this patient. If youare a health care provider and have any questions regarding this report,please contact the number below. For patients who have questions please contactthe health care associate that requested your imaging first. Sinai Patton GEAR HOBBER OPERATOR IMG MRI ORDERABLES documented in this encounter Visit Diagnoses Diagnosis Left shoulder pain, unspecified chronicity Tear of left rotator cuff, unspecified tear extent, unspecified whether traumatic Subluxation of tendon of long head of biceps documented in this encounter Care Teams Casing Runner Relationship Specialty Start Date End Date Tacho Jurado PA [address] [place] [address] PCP - General Internal Medicine 08/07/21 documented as of this encounter
--- OUTSIDE RECORDS SUMMARY | 2023-11-12 21:03 | XMS_ITS | Encounter Summary ---
Author Organization [facility] Address [facility] [place] [address] Care Team Providers Care Triple Air Valve Tester Name Role Phone Tacho Jurado Primary Care Provider [phone] Reason for Referral * Diagnostic Test (Routine) - Closed Specialty Diagnoses / Procedures Referred By Contnoemi t Referred To Contact Radiology Diagnoses Left shoulder pain, unspecified chronicity Tear of left rotator cuff, unspecified tear extent, unspecified whether traumatic Subluxation of tendon of long head of biceps Procedures MRI Shoulder wo Contrast Left (Generic) Sinai Patton APRN [facility] [place] [address] [facility] Rad Mri [address] [place] [address] Referral ID Status Reason Start Date Expiration Date V isits Requested Visits Authorized [id number] Closed Specialty Service Requested 08/15/2021 11/15/2021 1 1 Reason for Visit * Reason Comments Establish Care NXR(XR in EDH) LE FT SHOULDER INJURY DOI 07/15/2021 * Consultation (Urgent) - Closed Specialty Diagnoses / Procedures Referred By Contac t Referred To Contact Orthopaedics Diagnoses Injury of left shoulder, initial encounter Left shoulder pain, Ramakrishna Carpenter APRN [address] [place] [address] [facility] [address] [place] [id number] Referral ID Status Reason Start Date Expiration Date V isits Requested Visits Authorized [id number] Closed Consult, Test & Treat PCP Updated and/or Approved 07/21/2021 07/21/2022 6 6 Encounter Details Date Type Department Care Team (Late st Contact Info) Description 08/07/2021 8:40 AM EDT Office [place] [phone] Sinai Patton APRN [facility] [place] [address] Left shoulder pain, unspecified chronicity; Tear of left rotator cuff, unspecified tear extent, unspecified whether traumatic; Subluxation of tendon of long head of biceps; Family history of clotting disorder Social History Tobacco Use Types Packs/Day Years [...] Sign Reading Time Taken Comments Blood Pressure 127/74 08/07/2021 8:54 AM EDT Pulse - - Temperature - - Respiratory Rate - - Oxygen Saturation - - Inhaled Oxygen Concentration - - Weight 131.6 kg (290 lb 3.2 oz) 08/07/2021 8:54 AM EDT Height 167.6 cm (5' 5.98) 08/07/2021 8:54 AM ED T Body Mass Index 46.86 08/07/2021 8:54 AM EDT documented in this encounter Progress Notes * Sinai Patton APRN - 08/07/2021 8:40 AM EDT Subjective: Chief Complaint: LEFT shoulder pain. This 40 y.o. patient is seen in consultation at the request of Ramakrishna Carpenter. In order to facilitatethe coordination of this patient's care, a copy of this note will be sent to Ramakrishna Way HPI: Isaac Le is a 40 y.o. left handed male hx of PE (family hx of factor V Leiden clotting disorder) referred by Dilip Carpenter APRN for evaluation and treatment left shoulder pain. This is evaluated as a personal injury. The pain is described as aching. The onset of the pain was sudden, related to carrying a very heavy soil bag (axial traction like injury) with a sudden rip in the shoulder withthe shoulder pop in and out. He has struggled with pain and subluxation feeling in the proximal biceps since then. this injury occurred about a month ago. Mechanism of injury: lifting. The pain occurs at night/ wakes from sleep at night and is intermittent. Location is anterior, proximal biceps with some radiation over the lateral deltoid. No history of marichuy dislocation. + previous both shoulderinjuries over the years with nothing that has required any type of surgery. Symptoms are aggravatedby work at or above shoulder height, difficulty sleeping on affected side. Symptoms are diminished by rest, medication: he was given a prednisone taper and a muscle relaxer that helped somewhat, selfprescribed physical therapy exercises, avoiding the painful activities. Limited activities include:work at or above shoulder height, difficulty sleeping on affected side. No stiffness, mild weakness, swelling mild, no crepitus noted is reported. 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 Related history: no hx of fracture, surgery, marichuy dislocation (x-ray documented) or infection. Outside reports reviewed: ER records and radiology reports. PAST MEDICAL HISTORY 1. Venous thromboembolism, as above FH of clotting disorder Factor V Leiden 2. Hyperlipidemia 3. Obstructive sleep apnea, uses CPAP 4. Psoriasis 5. Obesity ?? Past Surgical History: UPPP surgery for sleep apnea 2. Bilateral carpal tunnel release 3. [place] teeth extractions Social History Tobacco Use ??? Smoking status: Never Smoker ??? Smokeless tobacco: Never Used Substance Use Topics ??? 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 Current Outpatient Medications Medication Sig Dispense Refill ??? albuteroL (ProAir HFA) 90 mcg/actuation HFA Aerosol Inhaler Inhale 90 puffs into the lungs every 4 hours as needed. ??? albuteroL 90 mcg/actuation HFA Aerosol Inhaler Inhale 90 puffs into the lungs daily as needed. ??? Armodafinil (NUVIGIL) 150 mg Tablet Take 1 tablet by mouth daily. ??? atorvastatin (Lipitor) 20 mg Tablet Take 20 mg by mouth daily. ??? chlorhexidine (PERIDEX) 0.12 % Mouthwash Take 0.12 mLs by mouth daily. ??? diazePAM (Valium) 10 mg Tablet Take 10 mg by mouth daily. ??? rivaroxaban 15 mg (42)- 20 mg (9) Tablets, Dose Pack Take 15 mg by mouth daily. ??? Xarelto 15 mg Tablet Take 20 mg by mouth daily. No current facility-administered medications for this visit. Current Outpatient Medications on File Prior to Visit Medication Sig Dispense Refill ??? albuteroL (ProAir HFA) 90 mcg/actuation HFA Aerosol Inhaler Inhale 90 puffs into the lungs every 4 hours as needed. ??? albuteroL 90 mcg/actuation HFA Aerosol Inhaler Inhale 90 puffs into the lungs daily as needed. ??? Armodafinil (NUVIGIL) 150 mg Tablet Take 1 tablet by mouth daily. ??? atorvastatin (Lipitor) 20 mg Tablet Take 20 mg by mouth daily. ??? chlorhexidine (PERIDEX) 0.12 % Mouthwash Take 0.12 mLs by mouth daily. ??? diazePAM (Valium) 10 mg Tablet Take 10 mg by mouth daily. ??? rivaroxaban 15 mg (42)- 20 mg (9) Tablets, Dose Pack Take 15 mg by mouth daily. ??? Xarelto 15 mg Tablet Take 20 mg by mouth daily. No current facility-administered medications on file prior to visit. Allergies Allergen Reactions ??? Banana ??? Codeine Questionnaire Responses: No flowsheet data found. Objective: Vitals: 08/07/21 0854 BP: 127/74 Weight: 131.6 kg (290 lb 3.2 oz) Height: 167.6 cm (5' 5.98) Body mass index is 46.86 kg/m??. General: alert, appears stated age, cooperative, no distress and well developed, well-nourished Posture: Rounded and asymmetric Scapula motion: No scapula winging Neck ROM: Mild stiffness Spurling's test: negative Left Shoulder Bruising: absent Crepitus: absent Joint Tenderness: proximal biceps and lateral deltoid. Mild pain at AC joint. Effusion: none present Biceps Tendon Rupture: absent Winging Scapula: negative Active ROM: pain in all planes of ROM. AFF: ~ 150 degrees + drop arm sign. + painful arc. PFF: ~ 160 degrees soft end point. Abduction: ++ painful arc and + drop arm sign. ~ 130 degrees active abduction. Too painful to assess Passive abduction. ER: ~ 50 degrees with a subluxation feeling long head of the proximal biceps. No obvious step off deformity. IR: ~ L5 S1. Neer: positive Park positive Stability: normal Apprehension Sign: negative/negative Atrophy: none noted Strength: RTC strength testing with arms at his side 4/5 ER no lag. IR: 5/5. Empty can is painful and somewhat unreliable 4 +/5 + drop arm sign. Mild weakness with belly press. Lateral deltoid 5/5. Axillary, Radial, ulna and median neuro-motor intact. Hand is sensate, well perfused, distal pulsesare 2+ and equal. Imaging X-Ray: outside images reviewed image by image in the office today AC Joint:narrowing moderate Glenohumeral joint: no abnormalities noted Elevation humeral head: absent Cuff arthropathy: absent Assessment: 40 year old Male with hx of PE (family hx of clotting disorder) with left shoulder pain after experiencing a traction like axial load injury to the LEFT shoulder about month ago. Pain and dysfunctionpersists despite multiple modalities including prednisone taper, muscle relaxer, OTC analgesics, self prescribed PT exercises. Clinical exam is consistent with painful RTC testing with weakness concerning for RTC tear and proximal biceps subluxation. Plain radiographs consistent with mild to moderate mildly symptomatic degenerative changes of the AC joint. Plan: I reviewed my findings in the office today with both x-rays and clinical exam. Treatment options and risks/benefits discussed from least to most invasive. Patient understands options. At this time, given failure of conservative measures, duration of injury 4 weeks and his livelihood, I do think it is important to consider higher level cross sectional imaging including a LEFT shoulder MRI scan . The patient indicates understanding of these issues and agrees with the plan. I have already ordered this as a future order in the computer. In the interim, ok to use Cool packs and acetaminophen prn for pain no greater than 3 grams per day. Gentle ROM to avoid stiffness. 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 Pt agrees, questions solicited/answered, will return as scheduled and as needed for concerns or questions. Pt understands they may also call us prn for above. I will call with the MRI scan results. Sooner prn. Pt agrees, questions solicited/answered, will return as scheduled and as needed for concerns or questions. Pt understands they may also call us prn for above. documented in this encounter Plan of Treatment Upcoming Encounters Date Type Department Care Team (Late st Contact Info) Description 12/22/2023 9:45 AM EDT Appointment XRay at [address] [place] [address] 12/22/2023 10:50 AM EDT Office Visit Orthopaedics at [facility] [place] [place] [address] Clinic, [address] Rizzo Team None documented as of this encounter Results * MRI Shoulder wo [...] who have questions please contact the health district manager primary care sales that requested your imaging first. ? Narrative 08/28/2021 8:57 AM EDT EXAMINATION: MRI [...] patients who have questions please contactthe health district manager primary care sales that requested your imaging first. Sinai Patton APRN IMG MRI ORDERABLES documented in this encounter Visit Diagnoses Diagnosis Left shoulder pain, unspecified chronicity Tear of left rotator cuff, unspecified tear extent, unspecified whether traumatic Subluxation of tendon of long head of biceps Family history of clotting disorder Family history of other blood disorders Left shoulder pain, unspecified chronicity Tear of left rotator cuff, unspecified tear extent, unspecified whether traumatic Subluxation of tendon of long head of biceps documented in this encounter Care Teams Triple Air Valve Tester Relationship Specialty Start Date End Date Tacho Jurado PA [address] [place] [address] PCP - General Internal Medicine 08/07/21 documented as of this encounter
--- OUTSIDE RECORDS SUMMARY | 2023-11-12 21:03 | XMS_ITS | Encounter Summary ---
Author Organization [facility] [place] [address] Care Team Providers Care Electrical Prospector Name Role Phone Joaquín Herring DNP Primary Care Provider Encounter Details Date Type Department Care Team (Late st Contact Info) Description 07/15/2021 Ancillary Procedure Radiology Library at [facility] [place] [phone] Joaquín Herring DNP [address] [place], [place] [id number] Social History Tobacco Use Types Packs/Day Years [...] 12/22/2023 9:45 AM EDT Appointment XRay at [address] [place] [phone] 12/22/2023 10:50 AM EDT Office Visit Orthopaedics at [facility] [place] [phone] Clinic, Dr Rizzo Team None documented as of this encounter Procedures Procedure Name Priority Date/Time Associated Diagnosis Comments FILM LIBRARY STORAGE ONLY DX SHOULDER Routine 07/15/2021 12:00 AM EDT documented in this encounter Results * Film Library- Storage Only DX Shoulder (07/15/2021 12:00 AM EDT) Narrative ANNA - 07/29/2021 10:02 AM EDT This exam is auto-finalizing. It's purpose is for storage only. Joaquín Herring DNP IMG FILM LIBRARY OR DERABLES Performing Organization Address City/State/[facility] Co de Phone Number [place], [place] documented in this encounter Visit Diagnoses Not on filedocumented in this encounter Care Teams Electrical Prospector Relationship Specialty Start Date End Date Joaquín Herring DNP PCP - General Family Medicine 05/30/20 08/06/21 documented as of this encounter
--- OUTSIDE RECORDS SUMMARY | 2023-11-12 21:03 | XMS_ITS | Encounter Summary ---
Author Organization [facility] Address [facility] [place] [address] Care Team Providers Care Farm Or Ranch Animal Caretaker Name Role Phone Tacho Jurado Primary Care Provider [phone] Reason for Visit * Physical Therapy (Routine) - Closed Specialty Diagnoses / Procedures Referred By Contac t Referred To Contact Physical Therapy Diagnoses Tear of left rotator cuff, unspecified tear extent, unspecified whether traumatic Left shoulder pain, unspecified chronicity Petra Rutherford MD [facility] [place] [address] [address] [place] [address] Referral ID Status Reason Start Date Expiration Date V isits Requested Visits Authorized [id number] Closed Evaluate and Treat 10/02/2021 10/02/2022 30 30 Encounter Details Date Type Department Care Team (Late st Contact Info) Description 10/20/2021 7:45 AM EDT Office Visit Physical Therapy at [facility] [address] [place] [address] Graham Huynh, PT Chronic pain in left [...] - Therapy - Graham Huynh, PT - 10/20/2021 7:45 AM EDT I was present throughout today's treatment/evaluation of the patient with my student participating.Following the session I've reviewed, discussed and provided feedback to my student in which updatesto the note were made. I concur with the note as written and recommend continuing treatment per Plan of Care as written. Physical Therapy Treatment Note Date of Exam/First Treatment: 10/20/2021 Referring Provider: Petra Rutherford MD [facility] [place] [address] Diagnosis and Pertinent Co-Morbidities affecting Plan of Care: ICD-10-CM 1. Chronic pain in left shoulder M25.512 G89.29 Date of onset/surgery: July 2021 Procedure: NA Precautions: NA Subjective Pt reports that his shoulder pain was elevated after his last visit and he had to take a day off ofhis HEP because of it. He reports that his HEP is going well at home, but he does sometimes have toice his shoulder because the rows make his shoulder ache. He rates his pain symptoms today as 2/10. His worst pain over the weekend was a 6/10 on the VAS. Objective CPT Charges: Therex: Strength/Endurance/ROM (59444) 45 min - Pt shoulder AROM continues to be WNL Therex: UBE 1x6min Wall pulleys 1x3 min abduction/flexion IR/ER YTB 2x15 bilat Rows YTB 2x15 Bilat ER 2x10 Triceps extensions 1# 2x15 Wall circles 2x1min Wall scap push ups 2x15 Current HEP: No scans are attached to the encounter. Assessment Pt tolerated shoulder active IR/ER exercises with resistance well and stated that they did not aggravate his shoulder pain this visit. All resistance with exercises were reduced today to YTB or 1# inorder to not aggravate the patient's shoulder pain. Pt needed multiple cues to perform exercises with correct form. Isaac Le will continue to benefit from skilled PT services. Plan Slowly increase resistance again and monitor pain Shoulder star excursion YTB not until next week Total treatment time: 45 minutes Total timed code treatment: 45 minutes Pt understands and agrees with physical therapy plan of care. Graham Huynh, PT documented in this encounter Plan of Treatment Upcoming Encounters Date Type Department Care Team (Late st Contact Info) Description 12/22/2023 9:45 AM EDT Appointment XRay at [address] [place] [address] 12/22/2023 10:50 AM EDT Office [place] [address] Clinic, Dr Rizzo Team None documented as of this encounter Visit Diagnoses Diagnosis Chronic pain in left shoulder Pain in joint, shoulder region documented in this encounter Care Teams Farm Or Ranch Animal Caretaker Relationship Specialty Start Date End Date Tacho Jurado PA [address] [place] [address] PCP - General Internal Medicine 08/07/21 documented as of this encounter
--- OUTSIDE RECORDS SUMMARY | 2023-11-12 21:03 | XMS_ITS | Encounter Summary ---
Author Organization [facility] Address [facility] [place] [address] Care Team Providers Care Healthcare Consulting Manager Name Role Phone Joaquín Herring DNP Primary Care Provider [phone] Reason for Visit * Reason Comments Advice Only * Consultation (Routine) - Closed Specialty Diagnoses / Procedures Referred By Contnoemi t Referred To Contact Hematology and Oncology Diagnoses Other pulmonary embolism without acute cor pulmonale Joaquín Herring, ARSLAN [address] [place] [address] [facility] [address] [place] [address] Referral ID Status Reason Start Date Expiration Date V isits Requested Visits Authorized [id number] Closed Consult, Test & Treat Connection Center PCP Updated and/or Approved 05/28/2020 11/28/2020 1 1 Encounter Details Date Type Department Care Team (Latest Contact Info) Description 08/29/2020 10:15 AM EDT Office Visit Hematology [place] [address] Sinai Umaña MD [facility] [address] [place] [address] Other acute pulmonary embolism, unspecified whether acute cor pulmonale present; Anticoagulated by anticoagulation treatment; Morbid obesity with BMI of 45.0-49.9, adult Social History Tobacco Use Types Packs/Day Years Used Date Smoking Tobacco: Never Smokeless Tobacco: Never Sex and Gender Information Value Date Recorded Sex Assigned at Male 10/08/2021 9:03 PM EDT Gender Identity Not on file Sexual Orientation Not on file documented as of this encounter Last Filed Vital Signs Vital Sign Reading Time Taken Comments Blood Pressure 154/96 08/29/2020 10:03 AM EDT Pulse 89 08/29/2020 10:03 AM EDT Temperature 36.9 ??C (98.4 ??F) 08/29/2020 1 0:03 AM EDT Respiratory Rate 20 08/29/2020 10:0 3 AM EDT Oxygen Saturation 97% 08/29/2020 10: 03 AM EDT Inhaled Oxygen Concentration - - Weight 131.6 kg (290 lb 3.2 oz) 021 10:03 AM EDT Height 167.6 cm (5' 5.98) 08/29/2020 1 0:03 AM EDT Body Mass Index 46.86 08/29/2020 10:03 AM EDT documented in this encounter Progress Notes * Sinai Umaña MD - 08/29/2020 10:15 AM EDT Images from the original note were not included. [facility] [place] [address] THROMBOSIS CONSULTATION DATE OF VISIT 08/29/2020 Patient Isaac Le 1980 REFERRING PHYSICIAN Joaquín Herring APRN PRIMARY CARE PHYSICIAN Joaquín Herring APRN REASON FOR CONSULTATION Anticoagulation recommendations HISTORY OF THE PRESENT ILLNESS Isaac Le is a 39 y.o. man with a pulmonary embolism, who is seen in consultation at the request of Joaquín Herring APRN for anticoagulation recommendatins. The history is obtained from the patient, and I have reviewed extensive medical records provided by the referring physician and locatedin the electronic medical record to fill in gaps in the patient's recollection of events, treatments and outcomes. Isaac was well until January 2020 when he developed flu-like symptoms, loss of taste and smell and a dry cough. He was diagnosed with COVID19 and went on to have a relatively mild course, with recovery after about 2 weeks. In late April/early May he noted onset of shortness of breath. He was working in an old house in contact with mold and figured that was the cause of his symptoms. His girlfriend has an albuterol inhaler which he tried and his symptoms improved somewhat.About 2 weeks later the shortness of breath worsened significantly and he felt like he was drowning. He went to the [facility] ER on May 26 2020 where a D-dimer was increased and a CTPA showed PE in the right upper lobe. He was treated as an outpatient with rivaroxaban and remains on rivaroxaban to current day. He had no leg symptoms at the time and duplex ultrasound studies of the legs were not done. This is Isaac's first episode of VTE and he cannot think of any specific triggers, including no injury, trauma, surgery, hospitalization, long travel or medical illness though he was laid off and was less physically active than usual. There is a family history of factor V Leiden (maternal half sister, full sister) and he was found to be heterozygous. It is not clear whether his sisters have had VTE events, but he thinks that their testing for factor V Leiden may have come about because of complications. His mother would seem to be an obligate FVL carrier but hasn't been specifically tested and has no history of VTE of which Isaac is aware. He has not had additional thrombophilia screening done. His ethnic background is [place] on his mother's side and [place] on his father's. Isaac is overweight and does not smoke cigarettes but does smoke daily cannabis and is trying tomove toward edibles. His thrombosis risk factors are noted below: THROMBOSIS RISK FACTORS Risk Factor Comment Obesity (BMI >30 kg/m2) V/A X Body mass index is 46.86 kg/m??. Diabetes V/A Current smoker V/A +/- Cannibis Estrogen or estrogen/progestin V/A V/A Inflammatory disease V/A Recent surgery (<3 months) V Recent hospitalization (<3 mo) V Recent travel (<3 mo) V Period of immobility V Documented thrombophilia V X Heterozygous FVL Accident/Trauma V/A Cancer or treatment for cancer V/A Blood transfusion V/A Central venous catheter V Family history (1st degree) V/A Varicose veins/venous insuff. V Hypertension A Hyperlipidemia A X Vascular disease A V: Risk factor for venous thrombosis; A: Risk factor for arterial thrombosis In the office today Isaac reports feeling generally well. He is close to being back to 100%, though finds that he tires easily. His respiratory status is close to back to normal though he now uses an albuterol inhaler as needed. He has no leg swelling or pain per se but his feet hurt at the end of the day. He has tolerated rivaroxaban well without bleeding complications and his health care insurance covers the medication. He generally takes the medication with breakfast. He is interested in understanding what may have led to his VTE event, and, most importantly, how to prevent a recurrence. Madleeine has questions about NSAID and acetaminophen use and blood donation. PAST MEDICAL HISTORY 1. Venous thromboembolism, as above RUL PE, 05-26-2020 Rx rivaroxaban Unprovoked, associated with heterozygous factor V Leiden 2. Hyperlipidemia 3. Obstructive sleep apnea, uses CPAP 4. Psoriasis 5. Obesity (BMI 46.9kg/m2) OPERATIVE PROCEDURES 1. UPPP surgery for sleep apnea 2. Bilateral carpal tunnel release 3. [place] teeth extractions MEDICATIONS Current Outpatient Medications on File Prior to Visit Medication Sig Dispense Refill ??? rivaroxaban 15 mg (42)- 20 mg (9) Tablets, Dose Pack Take 15 mg by mouth daily. ??? albuteroL (ProAir HFA) 90 mcg/actuation HFA [...] Take 10 mg by mouth daily. ??? Xarelto 15 mg Tablet Take 20 mg by mouth daily. No current facility-administered medications on file prior to visit. ADVERSE DRUG REACTIONS Allergies as of 08/29/2020 - Review Complete 08/29/2020 Allergen Reaction Noted ??? Banana 01/13/2019 ??? Codeine 01/13/2019 FAMILY HISTORY Parents without VTE. Father is one of 13 children, [place]; unsure of VTE history in distant relatives. Maternal half sister with factor V Leiden; VTE status unclear Younger full sister with factor V Leiden; VTE status unclear One younger full sister has not been tested SOCIAL HISTORY Lives in [place] with his girlfriend, Karey. They have been together for about 4 years. 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 Smokes cannabis daily; no cigarettes Seldom drinks alcohol Enjoys outdoor activities with his sons, hunting, hiking, land navigation REVIEW OF SYSTEMS Fevers/chills/sweats No Recent infections No Unexplained weight loss No Headache/lightheadedness/syncope No Sinus pain/pressure No Oral sores/lesions/bleeding No Sore throat/dysphagia No Nosebleeds No Cough/SOB/chest pain/heart racing No Nausea/vomiting/dyspepsia No Abdominal pain No Diarrhea/constipation No Urinary pain, burning, incontinence No Hematuria No Penile discharge/bleeding No Skin rashes/ulcers No Back/joint pain/swelling No Leg swelling/pain/redness Foot pain Bruising/petechiae/bleeding/melena No Sensory/motor No Polydipsia/polyuria/heat/cold intol No Lumps/bumps/swollen glands No Other Fatigue PHYSICAL EXAMINATION BP (!) 154/96 (Patient Position: Sitting) Pulse 89 Temp 36.9 ??C (98.4 ??F) (Temporal) Resp 20 Ht 167.6 cm (5' 5.98) Wt 131.6 kg (290 lb 3.2 oz) SpO2 97% BMI 46.86 kg/m?? GENERAL: Well-appearing, articulate white male. HEENT: Mask. NECK: Supple; no cervical, supraclavicular or submental adenopathy. CHEST/LUNGS: Clear to auscultation/percussion. No rales, rhonchi, wheezes. HEART: Regular rate and rhythm; no murmur, rub, gallop GASTROINTESTINAL: Abdomen obese, otherwise benign. GENITOURINARY: Exam deferred. EXTREMITIES: Trace bipedal edema. No erythema, tenderness or palpable cords. No venous varicosities. No skin discoloration or hemosiderin deposits. Peripheral pulses palpable. MUSCULOSKELETAL: Spine nontender. Full ROM all joints. No acutely inflamed joints. SKIN: No ecchymoses, petechiae, ulcers. Scaly rash on elbows, knees. LYMPH: No palpable lymph nodes. NEUROLOGIC: Alert, oriented. Speech clear, coherent. No focal deficits noted. PSYCHIATRIC: Appropriate affect, no apparent distress. LABORATORY STUDIES Scanned in eD Heterozygous factor V Leiden 05-26-2020: Normal CBC, kidney, liver function. COVID 19 negative RADIOGRAPHIC STUDIES I have personally reviewed images from the following studies: Reviewed above. IMPRESSION Isaac Le is a 39 y.o. man with an episode of seemingly unprovoked VTE manifesting as a PE. Though the event is unprovoked, he nevertheless has VTE risk factors including obesity and factor V Leiden. I think it somewhat unlikely that this event was associated with a mild COVID 19 infection over 3 months prior, though I can't 100% say that is the case. In any event, in light of his ongoing risk factors and substantial risk for recurrence, I think he is a candidate for detention anticoagulant prophylaxis. Additionally, it is reasonable to complete the thrombophilia screening panel. PLAN/RECOMMENDATIONS I reviewed the difference between an unprovoked VTE event and one that may have been precipitated by temporary risk factors (e.g., surgery, trauma, travel, hospitalization, immobilization) and discussed the additive nature of factors such as hereditary or acquired thrombophilia (e.g., factor V Leiden, PT [id number]), ABO blood type (non-O > O), dehydration, obesity, smoking varicose veins, diabetes, cancer, hormone use. I explained that the risk for developing a recurrent VTE is higher when theoriginal event was unprovoked than when it was associated with identifiable risk factors that have subsequently been eliminated. I explained that current ACCP recommendations (2016) for individuals with a first unprovoked VTE are for 3-6 months of anticoagulation with consideration for continuing indefinitely if the benefit in terms of risk reduction outweighs the risk for complications of long-term anticoagulation. Indefinite anticoagulation would be more strongly recommended in the event of a second VTE episode, especially an unprovoked one. In his case, I have to say that his VTE event was essentially unprovoked, though I concede that therole of a remote COVID19 infection is unclear. Accordingly, I estimate his risk for recurrence at up to 20-30% over the two years following discontinuation of anticoagulation. In addition to the unprovoked nature of the event, his other clinically relevant risk factors for recurrence include male se x and obesity. In light of this, I think his recurrence risk is high enough and the consequences ofrecurrence potentially severe enough that consideration for ongoing anticoagulation is in his best interest at this time. Anticoagulation reduces the risk for VTE recurrence to about 1% per year at the hazard of a major bleeding risk that is also about 1% per year. I conceded that life- threatening bleeding is risk with anticoagulation but that the risk for this is currently outweighed by his riskfor serious thrombosis without anticoagulation. Given that he has tolerated rivaroxaban it is appropriate to continue this medication. Generally the dose is lowered from 20 mg once daily to 10 mg once daily at the 6 month point. I would like to complete the thrombophilia screening first before recommending a detention dose. If he has a complex thrombophilia (I.e., something in addition to FVL) then continuing at the higher dose may be prudent.The risk/benefit calculation for continuing with anticoagulation may jacket changer time, however, andshould be revisited periodically. The alternative is low dose daily aspirin (81 mg) but while aspirin is effective for arterial thromboprophylaxis, its value for venous thromboprophylaxis is limited and inferior to anticoagulation and I don't recommend it. I recommended that he not take low dose daily aspirin in addition to rivaroxaban, as its use concurrently with anticoagulation does not appear to add significant efficacy for primary or secondary prevention of either venous or arterial thrombosis but does add substantially to bleeding risk. He doeslike to use ibuprofen and occasional use (e.g., not more than once or twice per week) of NSAIDs forpain should not pose undue bleeding risk. I cautioned him against regular use. We reviewed the idea that should he require surgery or other invasive procedures, temporary interruption of rivaroxaban is recommended. He simply needs to hold the medication for 2-3 days prior to the procedure and restart after the procedure. I told him that I would be happy to help out with specific recommendations in the future if the issue comes up. In particular, he is a blood donor and would like to continue to do. I believe the [facility] allows donations after a 2 day rivaroxaban hiatus,which is fine for him to do on occasion after he's completed his initial 6-month course. I reviewed additional strategies for VTE prevention including weight loss, maintaining a good activity level, avoiding dehydration and cutting down on cannabis smoking. Although the risk for a recurrent event on anticoagulation is low, it is not zero, and I reviewed signs and symptoms of DVT and PEand reminded him to seek medical attention expeditiously should they occur. I also discussed the implications of having an episode of VTE in the setting of heterozygous factorV Leiden. First, I reassured him that he's in good company because factor V Leiden is common, affecting 5% or more of the population (about 50 million people worldwide). Further I reassuredhim that it is considered a mild thrombophilia, imparting only a small increased risk for venous thrombosis affecting both the superficial and deep veins. I discussed the risk of sustaining a first episode of venous thrombosis, and explained the concept of the relative and absolute increase in risk. I quoted an approximately 2-3-fold increased risk for developing a first episode of VTE over the general population (i.e., from 1 in 1000 per year to 1 in 300 per year in middle age). We discussed the additive nature of various risk factors including obesity, hormone use, immobility, long distancetravel, diabetes, cancer, surgery, trauma and even blood type (type non-O > O). We discussed theconcept of managing modifiable risk factors and not getting too obsessed with the things that can't be changed such as factor V Leiden and blood type. In his case his major risk factors for recurrence are obesity and male sex. I reviewed with him that at his BMI the risk for VTE is increased at least 6- fold over baseline (Kabrhel et al., Obesity 2009;17:2040-46), and that her risk from obesity is higher than that conferredby the common hereditary thrombophilias (e.g., factor V Leiden, PT [id number]) and at least additive to other risk factors that may be present. Weight loss will therefore be an important component of risk factor modification for him going forward, and he is working on that. I reviewed the fact that while factor V Leiden is associated with an increased risk for venous thromboembolism, it does not appear to contribute to increased risk for arterial thrombosis under most circumstances. Moreover, the available data suggest that people with factor V Leiden alone may not necessarily be at any increased risk for developing a recurrent event than people without thrombophilia. We then discussed the genetic transmission of factor V Leiden and the role of family testing. I voiced the opinion that I would not recommend wholesale testing of asymptomatic family members given the overall low risk for developing thrombosis and the possibility for misuse of genetic information by various agencies. Rather, I explained that family members should be counseled about risk factor modification irrespective of the presence or absence of factor V Leiden. One exception may be women inthis family in the position of making decisions about child-bearing, oral contraceptive use or hormone replacement therapy. Specifically, I recommended that he NOT have his boys tested at this time as the presence or absence of FVL is unlikely to affect them until they are older and they can make the decision about testing when they are adults. I gave him some written information about factor V Leiden and about DVT/PE prevention, and invited him to share this with his family members. We reviewed the role of screening for additional causes of hereditary and acquired thrombophilia. It is possible that he has a complex thrombophilia (e.g., FVL + protein C deficiency given his [place] heritage). The presence or absence of an additional thrombophilia will not alter my general recommendation for ongoing anticoagulation, but may influence my dosing recommendation. Accordingly, he'll have his blood drawn today for a standard thrombophilia screening test panel, including levels of the endogenous anticoagulants, antithrombin, protein C and protein S, PT [id number] and antiphosp holipid antibodies. I'll omit APC resistance/factor V Leiden since this has already been done. In summary: ?? Continue rivaroxaban for the detention with periodic review of risk/benefit. ?? Dose to be determined based on thrombophilia screening results ?? Weight loss for risk reduction ?? Seek medical attention for new VTE symptoms ?? Hold rivaroxaban for 2-3 days prior to invasive procedures. OK to donate blood after 2-day hold per [facility]. ?? Complete the thrombophilia testing at this time. ?? No concurrent aspirin. Judicious NSAID use. OK to use acetaminophen at the same time. Isaac Le had the opportunity to ask questions and indicated that all his questions were answered to his satisfaction. He will follow up with me in approximately three weeks to discuss the results of the thrombosis testing, and I will finalize my recommendations at that time. He prefers a video follow up, which I will arrange. Sinai Umaña MD [employer] [facility] documented in this encounter Plan of Treatment Upcoming Encounters Date Type Department Care Team (Late st Contact Info) Description 12/22/2023 9:45 AM EDT Appointment XRay at [address] [place] [phone] 12/22/2023 10:50 AM EDT Office Visit Orthopaedics at [facility] [address] Clinic, Dr Rizzo Team None documented as of this encounter Visit Diagnoses Diagnosis Other acute pulmonary embolism, unspecified whether acute cor pulmonale present Anticoagulated by anticoagulation treatment Encounter for long-term (current) use of anticoagulants Morbid obesity with BMI of 45.0-49.9, adult Morbid obesity documented in this encounter Care Teams Healthcare Consulting Manager Relationship Specialty Start Date End Date Joaquín Herring DNP PCP - General Family Medicine 05/30/20 08/06/21 documented as of this encounter
--- OUTSIDE RECORDS SUMMARY | 2023-11-12 21:03 | XMS_ITS | Encounter Summary ---
Author Organization [facility] [place] [address] Care Team Providers Care Blast Furnace Helper Name Role Phone Tacho Jurado Primary Care Provider [phone] Encounter Details Date Type Department Care Team (Late st Contact Info) Description 08/15/2021 Orders [place] [address] Sinai Patton STOCK SUPERVISOR [facility] [place] [address] Left shoulder pain, unspecified chronicity Social History [...] as of this encounter Progress Notes * Mayte Anthony RMA - 08/15/2021 1:13 PM EDTSummary: xr pended Xr pended for MRI Orbits Please review and sign Thank you documented in this encounter Plan of Treatment Upcoming Encounters Date Type Department Care Team (Late st Contact Info) Description 12/22/2023 9:45 AM EDT Appointment XRay at [address] [place] [address] 12/22/2023 10:50 AM EDT Office Visit Orthopaedics at [facility] [place] [address] Clinic, [address] Rizzo Team None documented as of this encounter Results * XR Pre MRI [...] who have questions please contact the health physician primary care sports medicine that requested your imaging first. ? Narrative [...] patients who have questions please contactthe health physician primary care sports medicine that requested your imaging first. Sinai Patton APRN IMG DX ORDERABLES documented in this encounter Visit Diagnoses Diagnosis Left shoulder pain, unspecified chronicity Left shoulder pain, unspecified chronicity documented in this encounter Care Teams Blast Furnace Helper Relationship Specialty Start Date End Date Tacho Jurado PA [address] [facility] [address] [place] [address] PCP - General Internal Medicine 08/07/21 documented as of this encounter
--- OUTSIDE RECORDS SUMMARY | 2023-11-12 21:03 | XMS_ITS | Encounter Summary ---
Author Organization [facility] Address [facility] [place] [address] [place] [address] Care Team Providers Care Clothespin Drier Operator Name Role Phone Tacho Jurado Primary Care Provider [phone] Reason for Visit * Physical Therapy (Routine) - Closed Specialty Diagnoses / Procedures Referred By Contac t Referred To Contact Physical Therapy Diagnoses Tear of left rotator cuff, unspecified tear extent, unspecified whether traumatic Left shoulder pain, unspecified chronicity Petra Rutherford MD [facility] [place] [address] [address] [place] [address] Referral ID Status Reason Start Date Expiration Date V isits Requested Visits Authorized [id number] Closed Evaluate and Treat 10/02/2021 10/02/2022 30 30 Encounter Details Date Type Department Care Team (Late st Contact Info) Description 10/15/2021 8:30 AM EDT Office Visit Physical Therapy at [facility] [address] [place] [id number] Graham Huynh, PT Chronic pain in left [...] - Therapy - Graham Huynh, PT - 10/15/2021 8:30 AM EDT Images from the original note were not included. I was present throughout today's treatment/evaluation of the patient with my student participating.Following the session I've reviewed, discussed and provided feedback to my student in which updatesto the note were made. I concur with the note as written and recommend continuing treatment per Plan of Care as written. Physical Therapy Treatment Note Date of Exam/First Treatment: 10/15/2021 Referring Provider: Petra Rutherford MD [facility] [place] [address] Diagnosis and Pertinent Co-Morbidities affecting Plan of Care: ICD-10-CM 1. Chronic pain in left shoulder M25.512 G89.29 Date of onset/surgery: July 2021 Procedure: NA Precautions: NA Subjective Pt reports that his shoulder pain is improving and that he feels as though he is getting stronger. His shoulder tolerates more than it did last week and he is seeing improvements. His R shoulder is still painful due to being electrocuted. He rates his pain symptoms today as 2/10. Objective CPT Charges: Therex: Strength/Endurance/ROM (69542) 45 min - Pt shoulder AROM continues to be WNL - Pt LUE MMTs: Flexion:5/5 Abd: 4+ ER: 4 IR: 3 Current HEP: Assessment Pt tolerated shoulder active IR/ER exercises with resistance well and stated that they did not aggravate his shoulder pain. Pt also tolerated shoulder stabilization exercises well. Pt continues to lack shoulder strength in abd, ER, and IR, but all are improving over time. Pt will continue to benefit from increasing resistance on active ROM and stability exercises. Isaac Le will continue to benefit from skilled PT services. Plan Shoulder star excursion YTB next visit Total treatment time: 45 minutes Total timed code treatment: 45 minutes Pt understands and agrees with physical therapy plan of care. Graham Huynh PT documented in this encounter Plan of Treatment Upcoming Encounters Date Type Department Care Team (Late st Contact Info) Description 12/22/2023 9:45 AM EDT Appointment XRay at [address] [place] [address] 12/22/2023 10:50 AM EDT Office Visit Orthopaedics at [facility] [place] [address] Clinic, Dr Rizzo Team None documented as of this encounter Visit Diagnoses Diagnosis Chronic pain in left shoulder Pain in joint, shoulder region documented in this encounter Care Teams Clothespin Drier Operator Relationship Specialty Start Date End Date Tacho Jurado PA [address] [place] [address] PCP - General Internal Medicine 08/07/21 documented as of this encounter
--- OUTSIDE RECORDS SUMMARY | 2023-11-12 21:03 | XMS_ITS | Encounter Summary ---
Author Organization [facility] Address [facility] [place] [address] Care Team Providers Care Marine Driller Name Role Phone Tacho Juardo Primary Care Provider Reason for Referral * Physical Therapy (Routine) - Duplicate Referral Specialty Diagnoses / Procedures Referred By Contnoemi t Referred To Contact Physical Therapy Diagnoses Pain in joint of left shoulder Tacho Jurado PA [address] [place] [address] [facility] Re[facility] [address] [place] [address] Referral ID Status Reason Start Date Expiration Date Visits Requested Visits Authorized [id number] Duplicate Referral Evaluate and Treat PCP Updated and/or Approved 11/07/2021 11/07/2022 12 12 Encounter Details Date Type Department Care Team (Latest Contact Info) Description 11/07/2021 Transcribe Orders eDH Incoming Referrals [phone] Tacho Jurado PA [address] [place] [address] Pain in joint of left shoulder Social [...] 12/22/2023 9:45 AM EDT Appointment XRay at [address] [place] [address] 12/22/2023 10:50 AM EDT Office Visit Orthopaedics at [facility] [place] [address] Clinic, Dr Rizzo Team None Scheduled Referrals Name Type Priority Associated Diagnoses Orde r Schedule Referral to Physical Therapy Outpatient Referral Routine Pain in joint of left shoulder Ordered: 11/07/2021 documented as of this encounter Visit Diagnoses Diagnosis Pain in joint of left shoulder Pain in joint, shoulder region documented in this encounter Care Teams Marine Driller Relationship Specialty Start Date End Date Tacho Jurado PA [address] [place] [address] PCP - General Internal Medicine 08/07/21 documented as of this encounter
--- OUTSIDE RECORDS SUMMARY | 2023-11-12 21:03 | XMS_ITS | Encounter Summary ---
Author Organization [facility] [place] [address] [place] [address] Care Team Providers Care Ethnology Professor Name Role Phone Joaquín Herring ARSLAN Primary Care Provider [phone] Encounter Details Date Type Department Care Team (Latest Contact Info) Description 09/20/2020 10:00 AM EDT TH Visit (TeleHealth) Hematology [place] [address] Sinai Umaña MD [facility] DR [place] [address] Other acute pulmonary embolism, unspecified whether acute [...] as of this encounter Progress Notes * Sinai Umaña MD - 09/20/2020 10:00 AM EDT Images from the original note were not included. [facility] [place] [address] THROMBOSIS FOLLOW UP DATE OF VISIT 09/20/2020 Patient Isaac Kay Mimi 1980 PRIMARY CARE PROVIDER Joaquín Herring APRN REASON FOR FOLLOW UP Review anticoagulation recommendations, thrombophilia screening results This patient verbally consents to this video telehealth format and understands that this visit may be billed, similar to a clinic office visit. THROMBOSIS PROBLEM LIST: Venous thromboembolism RUL PE, 05-26-2020 Rx rivaroxaban Unprovoked, associated with heterozygous factor V Leiden HISTORY OF THE PRESENT ILLNESS Isaac Le is a 39 y.o. man with a pulmonary embolism, who is seen in follow up to review anticoagulation recommendatins. The history is obtained from the patient, and I have reviewed extensive medical records provided by the referring physician and located in the electronic medical record to fill in [...] which he tried and his symptoms improved somewhat. About 2 weeks later the shortness of breath worsened significantly and he felt like he was drowning. He went to the [facility] ER on May 26 2020 where a D-dimer was increased and a CTPA showed PE in the right upper lobe. He was treated as an o utpatient with rivaroxaban and remains on rivaroxaban to current day. He had no leg symptoms at thetime and duplex ultrasound studies of the legs [...] thrombophilia screening done. His ethnic background is [place]ese on his mother's side and [place] Ni[place]an on his father's. Isaac is overweight and does not smoke cigarettes but does smoke daily cannabis and is trying tomove toward edibles. INTERVAL HISTORY I'm seeing Isaac today via video where he is on a job in [employer]. He's doing well and has little in the way of residual symptoms from his PE. He has tolerated rivaroxaban well without bleeding complications and his health care insurance covers the medication. Nevertheless, he does not love the idea of terminal operations manager anticoagulation and if possible would like to stop (if it makes sense medically). He's going white water rafting with his kids this weekend. PAST MEDICAL HISTORY 1. Venous thromboembolism, as above RUL PE, 05-26-2020 Rx rivaroxaban Unprovoked, associated with heterozygous factor V Leiden 2. Hyperlipidemia 3. Obstructive sleep apnea, uses CPAP 4. Psoriasis 5. Obesity (BMI 46.9kg/m2) OPERATIVE PROCEDURES 1. UPPP surgery for sleep apnea 2. Bilateral carpal tunnel release 3. [place] teeth extractions MEDICATIONS Current Outpatient Medications on [...] visit. ADVERSE DRUG REACTIONS Allergies as of 09/20/2020 - Review Complete 08/29/2020 Allergen Reaction Noted ??? Banana 01/13/2019 ??? Codeine 01/13/2019 FAMILY HISTORY Parents without VTE. Father is one of 13 children, Kittitian-Niuean; unsure of VTE history in distant relatives. Maternal half sister with factor V Leiden; VTE status unclear Younger full sister with factor V Leiden; VTE status unclear One younger full sister has not been tested SOCIAL HISTORY Lives in [place] with his girlfriend, Karey. They have been together for about 4 years. 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 Video Visit. Limited exam possible GENERAL: Isaac looks well. He's in good spirits. LABORATORY STUDIES Scanned in eD Heterozygous factor [...] I think he is a candidate for terminal operations manager anticoagulant prophylaxis. He has no identifiable thrombophilia in addition to factor V Leiden. PLAN/RECOMMENDATIONS I again reviewed the difference between an unprovoked VTE event and one that may have been precipitated by temporary risk factors (e.g., surgery, trauma, travel, hospitalization, immobilization) and discussed the additive nature of factors such as hereditary or acquired thrombophilia (e.g., factor V Leiden, PT [id number]), ABO blood type (non-O > O), dehydration, obesity, smoking varicose veins, diabetes, cancer, hormone use. I explained that the risk for developing a recurrent VTE is higher when the original event was unprovoked than when it was associated with identifiable risk factors thathave subsequently been eliminated. I explained that current [...] by his riskfor serious thrombosis without anticoagulation. I reviewed three options for ongoing anticoagulation at this point: 1. Continue with rivaroxaban but reduce the dose to 10 mg once daily for usp prevention. Thiswould be expected to reduce his recurrence risk from about 20-30% to about 1% annually. This is my first choice recommendation. The dose reduction has been studied at the 6 month point but there is no reason to expect that reducing the dose now that he has received 3 full months of treatment would be dangerous. OR 2. Stop rivaroxaban in favor of low dose daily aspirin for the usp. This would be expected todecrease for recurrent VTE from 20-30% to maybe 10-15%, but, in my view, that is still a higher than acceptable risk. That being said, low dose aspirin may be more palatable to him. OR 3. Stop rivaroxaban altogether and do not institute low dose aspirin. His risk for recurrent VTE would fall back to his baseline at 20-30%. I don't recommend this. After reviewing these options, Isaac finds it acceptable to continue with the lower dose of rivaroxaban. The 10 mg dose is the FDA-recommended dose for usp prevention and has similar efficacy asthe higher dose with the potential for less bleeding. I'll defer to YANDY Herring to provide the prescription for the lower dose at the time of the next refill. The recommendation for terminal operations manager anticoagulation should be revisited periodically over the years, as the risk/benefit calculation may change with changing circumstances. I'll be happy to review this with him from time to time. I recommended that he not take low [...] to continue to do. I believe the [facility] allows donations after a 2 day rivaroxaban hiatus,which is fine for him to do on occasion after he's completed his initial 3-6-month course. I reviewed additional strategies for VTE prevention including weight loss, maintaining a good activity level, avoiding dehydration and cutting down on cannabis smoking. Although the risk for a recurrent event on anticoagulation is low, it is not zero, and I reviewed signs and symptoms of DVT and PEand reminded him to seek medical attention expeditiously should they occur. Weight loss will continue to be an important component of risk factor modification for him going forward, and he is working on that. I reviewed the thrombophilia screening test results with him. I don't have a high suspicion for antiphospholipid syndrome, especially with negative tests for TAMICA and B2GP1, thus I do not think it necessary to stop rivaroxaban to test him for a lupus anticoagulant. In summary: ?? Continue rivaroxaban for the terminal operations manager with periodic review of risk/benefit. ?? OK to decrease the dose to 10 mg once daily with next prescription refill. Will defer to YANDY Herring to refill and manage the prescription ?? Weight loss for risk reduction ?? Seek medical attention for new VTE symptoms ?? Hold rivaroxaban for 2-3 days prior to invasive procedures. OK to donate blood after 2-day hold per [facility]. ?? No further thrombophilia testing at this time. ?? No concurrent aspirin. Judicious NSAID use. OK to use acetaminophen at the same time. Isaac Le had the opportunity to ask questions and indicated that all his questions were answered to his satisfaction. While I won't plan to see him back routinely, I'll be happy to see him backat any time in the future as appropriate and would especially welcome the opportunity to provide recommendations for anticoagulant management around invasive procedures should the need arise. Sinai Umaña MD [facility] I provided care to this patient today via the video telehealth format. The total time associated with this visit including preparation and documentation was 20 minutes. documented in this encounter Plan of Treatment Upcoming Encounters Date Type Department Care Team (Late st Contact Info) Description 12/22/2023 9:45 AM EDT Appointment XRay at [address] [place] [address] 12/22/2023 10:50 AM EDT Office [place] [address] Clinic, [address] Rizzo Team None documented as of this encounter Visit Diagnoses Diagnosis Other acute pulmonary embolism, unspecified whether acute cor pulmonale present Anticoagulated by anticoagulation treatment Encounter for long-term (current) use of anticoagulants Morbid obesity with BMI of 45.0-49.9, adult Morbid obesity documented in this encounter Care Teams Ethnology Professor Relationship Specialty Start Date End Date Joaquín Herring DNP PCP - General Family Medicine 05/30/20 08/06/21 documented as of this encounter
== END 2023-11-12 21:15 ==
PROVIDERS: PCP Physician Assistant; Visit Provider Physician Assistant Medical
DX: R22.41 Localized swelling, mass and lump, right lower limb (principal)
CPT/HCPCS: 73630

== ENCOUNTER 2023-11-26 00:40 | Outpatient (CLI) | payer OTHER, SELFPAY ==
--- NOTE | 2023-11-26 | DI.MRI_ITS ---
Exam(s) MR LOWER JOINT RT WO EXAM: MR LOWER JOINT RT WO CLINICAL HISTORY: Injury of Achilles tendon, S86.001D TECHNIQUE: Multiplanar multisequence MRI was performed without intravenous contrast. COMPARISON: CR XR FOOT RT COMPLETE from 11/12/2023 FINDINGS: BONES/JOINTS: No fracture or contusion pattern. No bone lesions identified. The talar dome is smooth. The ankle mortise is maintained. No joint effusion is present. LIGAMENTS: The tibiofibular and calcaneofibular ligaments are intact. The talofibular ligaments are i ntact. The deltoid ligament is intact. The syndesmosis is unremarkable. Sinus tarsi is normal. MUSCULOTENDINOUS STRUCTURES: Achilles tendon: The Achilles tendon is thickened at its insertion site. There is hyperintense signa l seen particularly anteriorly consistent with a partial tear. There is fluid seen anteriorly sugges ting a retrocalcaneal bursitis. There is mild edema seen posterior to the Achilles tendon. Plantar fascia: There is mild thickening intermediate signal seen in the plantar fascia at its insert ion site into the calcaneus. Anterior Extensor tendons: Unremarkable. Posterior Tibialis: Unremarkable. Flexor Digitorum longus: Unremarkable. Flexor Hallucis longus: Unremarkable. Peroneus longus: Unremarkable. Peroneus brevis:Unremarkable. SOFT TISSUES: Unremarkable. OTHER FINDINGS: None. IMPRESSION: 1. Partial tear of the Achilles tendon at its insertion site with underlying tendinopathy. 2. Fluid seen anterior to the Achilles tendon suggesting a retrocalcaneal bursitis. 3. Plantar fasciitis. DATA REPOSITORY:
--- NOTE | 2023-11-26 | DI.RAD_ITS ---
Exam(s) XR EYE FOREIGN BODY EXAM: XR EYE FOREIGN BODY INDICATION: PRE MRI CLEARANCE, H/O METAL TO EYE. COMPARISON: No exams were available for comparison TECHNIQUE: 2D digital imaging was performed. FINDINGS: No radiopaque foreign bodies are seen in the orbits. IMPRESSION: No radiopaque foreign bodies are seen in the orbits. DATA REPOSITORY: RADIATION DOSE DELIVERED:
== END 2023-11-26 01:00 ==
PROVIDERS: PCP Physician Assistant; Visit Provider Physician Assistant Medical
DX: S86.021A Laceration of right Achilles tendon, initial encounter (principal); X58.XXXA Exposure to other specified factors, initial encounter; T15.90XA Foreign body on external eye, part unspecified, unspecified eye, initial encounter
CPT/HCPCS: 73721; 70030

== ENCOUNTER 2024-01-25 13:40 | Outpatient (CLI) | payer BC, SELFPAY ==
[2024-01-25 12:32] LABS: HCT 40.7 % (40.0-50.0); HGB 13.9 g/dL (13.5-17.5); MCHC 34.2 % (32.0-36.0); MCV 91 fL (80-95); MPV 8.9 fL (8.0-11.0); Platelet Count 270 10^3/uL (130-400); RBC 4.48 10^6/uL (4.36-5.78); RDW 11.9 % (11.8-14.1); RDW-SD 39.8 fL; WBC 8.45 10^3/uL (4.4-10.8)
[2024-01-25 12:53] LABS: ALT 50 U/L (16-63); AST 16 U/L (15-37); Albumin 3.8 g/dL (3.4-5.0); Alkaline Phosphatase 85 U/L (46-116); Anion Gap 10.5 mmol/L (3-11); BUN 17 mg/dL (7-18); Bilirubin, Total 0.37 mg/dL (0.2-1.0); CO2 26.5 mmol/L (21.0-32.0); CREATININE 1.1 mg/dL (0.70-1.30); Calcium 9.5 mg/dL (8.5-10.1); Calculated LDL 100 mg/dL (<100); Chloride 106 mmol/L (98-107); Cholesterol 174 mg/dL (<200); Estimated GFR 86.49 (mL/min/1.73m2); Glucose 96 mg/dL (74-106); HDL Cholesterol 44 mg/dL (40-60); Potassium 3.8 mmol/L (3.5-5.1); Sodium 143 mmol/L (136-145); Total Protein 7.7 g/dL (6.4-8.2); Triglyceride 153 mg/dL (<150)
== END 2024-01-25 13:41 | disposition home or self-care (01) ==
LOC: LBO 13:40
PROVIDERS: PCP Physician Assistant; Visit Provider Physician Assistant
DX: R73.03 Prediabetes (principal); E78.5 Hyperlipidemia, unspecified; D68.51 Activated protein C resistance
CPT/HCPCS: 36415; 80053; 80061; 85027; 83036

== ENCOUNTER 2025-02-22 16:29 | Outpatient (REF) | payer BC, SELFPAY ==
[2025-02-22 19:04] LABS: Hemoglobin A1C 5.6 % (<5.7)
[2025-02-22 19:19] LABS: ALT 58 U/L (10-49); AST 24 U/L (<34); Albumin 4.5 g/dL (3.2-5.0); Alkaline Phosphatase 79 U/L (46-116); Anion Gap 11.3 mmol/L (3-11); BUN 15 mg/dL (9-23); Bilirubin, Total 0.40 mg/dL (0.2-1.2); CO2 27.7 mmol/L (20.0-31.0); Calcium 10.2 mg/dL (8.3-10.6); Chloride 105 mmol/L (98-107); Cholesterol 149 mg/dL (<200); Glucose 96 mg/dL (74-106); HDL Cholesterol 39 mg/dL (>40); Potassium 4.3 mmol/L (3.5-5.1); Sodium 144 mmol/L (136-145); Total Protein 7.0 g/dL (5.7-8.2)
== END 2025-02-22 16:30 | disposition home or self-care (01) ==
LOC: NCHCN 16:29
PROVIDERS: PCP Physician Assistant; Visit Provider Physician Assistant
DX: E78.5 Hyperlipidemia, unspecified (principal); R73.03 Prediabetes
CPT/HCPCS: 80053; 80061; 83036